=== PATIENT | female | born 1990 | race Caucasian/White ===

== ENCOUNTER → 2016-06-22 | Outpatient (CLI) | payer OTHER ==
[~2016-06-22] MED LIST: CYCL10TA9 PO; DICL18CA PO; HYDR-3714 PO; METH-53 PO; METH4TAB PO; PRED20TA PO; TRAM-21 PO
--- NOTE | 2016-06-22 18:15 | Diagnostic Imaging Report ---
Transabdominal and transvaginal pelvic ultrasound. INDICATION: Pelvic pain. FINDINGS: The uterus is 10.1 x 5.4 x 5.1 cm. The endometrial stripe is 1.3 cm in thickness. The myometrium is fairly homogeneous with no discrete lesion identified. The right ovary is 3.1 x 2.6 x 3.4 cm. The left ovary is 3 x 3.2 x 2.6 cm. Arterial and venous waveforms are seen. IMPRESSION: Unremarkable exam. Dictated by: Dictated on workstation # [id number]
== END ==
LOC: RAD 14:28
PROVIDERS: ATTEND Nurse Practitioner
DX: R10.2 Pelvic and perineal pain (principal)
CPT/HCPCS: 76830; 76856

== ENCOUNTER → 2016-10-06 | Outpatient (CLI) | payer OTHER ==
--- NOTE | 2016-10-06 13:32 | Diagnostic Imaging Report ---
PROCEDURE: CT abdomen and pelvis without contrast. TECHNIQUE: Multiple contiguous axial images were obtained through the abdomen and pelvis without the use of intravenous contrast. INDICATION: Left upper quadrant pain radiating down the back. Patient also reports mononucleosis. COMPARISON: Exam compared 07/16/2007. Spleen is normal in size on followup having decreased from prior. It measures AP dimension of 11 cm and transverse hilar thickness of only 3.8 cm. There is no perisplenic or subcapsular fluid. No findings of splenic rupture. The liver and gallbladder appeared unremarkable. Patient's lung bases are negative. The visualized lower ribs are unremarkable. There are no opaque kidney stones. There is no hydronephrosis, no perinephric or periureteric edema. The unopacified urinary bladder had an unremarkable appearance. There is minute free fluid in the pelvic cul-de-sac not uncommonly found as a physiologic finding in a female patient of this age. Left pelvic phleboliths stable from prior. No adnexal lesion. Surgical changes of the base of the cecum presumed to reflect appendectomy no regional inflammatory process. There is no diverticulitis. The osseous structures nonacute. IMPRESSION: Normal spleen size on followup. No acute abnormality in the left upper quadrant. No bowel, biliary or urinary tract obstruction. Trace free fluid believed physiologic. No acute appearing abnormality. Dictated by: Dictated on workstation # [id number]
== END ==
LOC: RAD 08:23
PROVIDERS: ATTEND Family Medicine
DX: R10.13 Epigastric pain (principal); R10.32 Left lower quadrant pain; B27.90 Infectious mononucleosis, unspecified without complication
CPT/HCPCS: 74176

== ENCOUNTER → 2017-11-30 | Outpatient (CLI) | payer OTHER ==
--- NOTE | 2017-11-30 16:05 | Diagnostic Imaging Report ---
INDICATION: Abnormal uterine/vaginal bleeding. TECHNIQUE: Multiple real time jones scale sonographic images were obtained of the pelvis transvaginally. CORRELATION STUDY: None FINDINGS: UTERUS/ENDOMETRIUM: Uterus measures 9.1 x 5.6 x 4.8 cm. Endometrial thickness is 3 mm. The uterus and endometrium appearing unremarkable. RIGHT OVARY: 2.8 x 1.9 x 2.4 cm. LEFT OVARY: 2.7 x 1.9 x 2.4 cm. The ovaries have an unremarkable appearance. Vascular flow is demonstrated to both ovaries. No significant free pelvic fluid. IMPRESSION: 1. Unremarkable appearing pelvic ultrasound examination. Dictated by: Dictated on workstation # [id number]
== END ==
LOC: RAD 14:35
PROVIDERS: ATTEND Nurse Practitioner Women's Health
DX: N92.1 Excessive and frequent menstruation with irregular cycle (principal); N93.8 Other specified abnormal uterine and vaginal bleeding
CPT/HCPCS: 76830

== ENCOUNTER → 2018-02-26 | Outpatient (CLI) | payer OTHER ==
--- NOTE | 2018-02-26 12:39 | Diagnostic Imaging Report ---
PROCEDURE: US abdomen complete. TECHNIQUE: Multiple real-time grayscale images were obtained over the abdomen in various projections. INDICATION: Abdominal pain and celiac disease. FINDINGS: The liver is normal in size without focal lesions. There is no biliary ductal dilatation. Common bile duct measures 3 mm. There is no cholelithiasis, gallbladder wall thickening, or pericholecystic fluid. Pancreas is not well seen due to bowel gas. The aorta is not well seen due to bowel gas. IVC is patent. Both kidneys are normal. There is no ascites. IMPRESSION: Unremarkable abdominal ultrasound. Dictated by: Dictated on workstation # [id number]
== END ==
LOC: RAD 08:07
PROVIDERS: ATTEND Nurse Practitioner Family
DX: K90.0 Celiac disease (principal); N80.9 Endometriosis, unspecified; K21.9 Gastro-esophageal reflux disease without esophagitis; M50.30 Other cervical disc degeneration, unspecified cervical region
CPT/HCPCS: 76700

== ENCOUNTER 2018-03-14 10:20 | Outpatient (CLI) | payer OTHER ==
[~2018-03-14] VITALS: Ht 177.8 cm; Wt 88.5 kg
[2018-03-15] MEDS ORDERED: PANT40TA2 PO (14:09)
== END 2018-03-14 12:45 | disposition home or self-care (01) ==
LOC: PREOP 10:20
PROVIDERS: ATTEND Surgery
DX: Z01.818 Encounter for other preprocedural examination (principal)

== ENCOUNTER 2018-03-15 12:15 | Day surgery (SDC) | payer OTHER ==
[~2018-03-15] VITALS: Ht 177.8 cm; Wt 88.5 kg
[2018-03-15 12:20] VITALS: BP 124/88
[2018-03-15] MEDS ORDERED: LACTATED RINGERS 1,000 ML IV ONE (12:28)
[2018-03-15] MEDS ORDERED: PROPOFOL INJECTION 50 ML IV ONE (13:09)
[2018-03-15] MEDS ORDERED: MIDAZOLAM 2 MG/2 ML (VERSED) VIAL ONE (13:10)
[2018-03-15 13:30] VITALS: BP 113/80
[2018-03-15] MEDS ORDERED: LACTATED RINGERS 1,000 ML IV PRN (13:30)
[2018-03-15] MEDS ORDERED: HURRICAINE EXT TUBE (BENZOCAINE) ONE (13:36)
--- NOTE | 2018-03-15 13:46 | Progress Note-Pre Operative ---
Pre-Operative Progress Note H&P Reviewed The H&P was reviewed, patient examined and no changes noted. Date Seen by Provider: Mar 15, 2018 Time Seen by Provider: 13:45 Date H&P Reviewed: Mar 15, 2018 Time H&P Reviewed: 13:45 Pre-Operative Diagnosis: epigastric abdominal pain SHIRIN ZAPATA DO Mar 15, 2018 13:46
[2018-03-15 14:00] VITALS: BP 114/90
--- NOTE | 2018-03-15 14:08 | Progress Note-Post Operative ---
Post-Operative Progess Note Surgeon (s)/Customer Support Specialist (s) Surgeon SHIRIN ZAPATA DO Customer Support Specialist: na Pre-Operative Diagnosis epigastric abdominal pain Post-Operative Diagnosis Hx of celiac epigastric abdominal pain Procedure & Operative Findings Date of Procedure 03/15/18 Procedure Performed/Findings EGD c biopsies duodenum and antrum Anesthesia Type per FILLER SPREADER Estimated Blood Loss Estimated blood loss (mL): none Specimens/Packing Specimens Removed Bx of antrum and duodenum SHIRIN ZAPATA DO Mar 15, 2018 14:08
[2018-03-15] MEDS ORDERED: PANT40TA2 PO (14:09)
--- NOTE | 2018-03-15 14:10 | Discharge Inst-Simple/Standard ---
Discharge Inst-Standard Discharge Medications New, Converted or Re-Newed RX: Transmitted to Pharmacy Patient Instructions/Follow Up Plan of Care/Instructions/FU: 2-3 weeks Isiah Activity as Tolerated: Yes Discharge Diet: Regular Diet SHIRIN ZAPATA DO Mar 15, 2018 14:10
[2018-03-15] MEDS ORDERED: HURRICAINE EXT TUBE (BENZOCAINE) XX ONE (14:15)
[2018-03-15 14:30] VITALS: BP 109/66
[2018-03-15 14:55] VITALS: BP 112/70
--- NOTE | 2018-03-15 18:36 | OPERATIVE REPORT ---
DATE OF SERVICE: 03/15/2018 PREOPERATIVE DIAGNOSIS: Epigastric abdominal pain. POSTOPERATIVE DIAGNOSIS: Gastritis. PROCEDURE: EGD with biopsies of the duodenum and antrum. SURGEON: Shirin Joyce DO ANESTHESIA: Per PROCESS CONTROL TECHNICIAN. ESTIMATED BLOOD LOSS: None. COMPLICATIONS: None. INDICATIONS: The patient is a 27-year-old female, who has been having epigastric abdominal pain. It is radiating to her back at times. The patient states that she also has history of celiac disease. The patient is fairly adherent to a diet. She was explained risks and benefits of having EGD performed for further evaluation. She understands risks and benefits and wished to proceed with procedure. Consent was signed and on the chart. DESCRIPTION OF PROCEDURE: The patient was taken to the endoscopy suite, placed in left lateral recumbent position. Timeout was performed. Scope was inserted into mouth, down the esophagus, stomach and into the duodenum without difficulty. There were no polyps, mass or ulceration of the duodenum. Biopsy of the duodenum was obtained. Scope was slowly retracted back into the stomach where it was further insufflated. Some slight erythematous changes in the antrum consistent with slight gastritis. Biopsy of the antrum was obtained. Scope was retroflexed noting no other pathology. Scope was returned to its normal position moved back into the esophagus, which had normal appearance. No polyps, masses or ulcerations. The patient's scope was then slowly retracted back until completely removed. The patient tolerated the procedure well without any complications and taken to recovery room in stable condition. RECOMMENDATIONS: The patient will try Protonix 40 mg daily. We will have a followup in approximately 2 to 3 weeks to discuss pathology results and see how she is feeling at that time. Job ID: [id number] DocumentID: [id number] Dictated Date: 03/15/2018 14:14:32 Textile Colorist Formulator Date: 03/15/2018 18:35:20 Dictated By: SHIRIN JOYCE DO
== END 2018-03-15 15:00 | disposition home or self-care (01) ==
LOC: ENDO 12:15
PROVIDERS: ATTEND Surgery
DX: K29.70 Gastritis, unspecified, without bleeding (principal); Z87.19 Personal history of other diseases of the digestive system
CPT/HCPCS: 84703; 88305

== ENCOUNTER → 2018-04-24 | Outpatient (CLI) | payer OTHER ==
[~2018-04-24] MED LIST changes: +PANT40TA2 PO; +RECEIVED CONTRAST (Hold Metformin) IV SCH
[2018-04-24] MEDS: NS 250 ML (IVPB) BAG IV ONE (09:11)
[2018-04-24] MEDS: IOHEXOL 350 MG/ML 100 ML (OMNIPAQUE 350) VIAL IV ONE (09:11)
--- NOTE | 2018-04-24 12:03 | Diagnostic Imaging Report ---
PROCEDURE: CT abdomen and pelvis with and without contrast. TECHNIQUE: Precontrast acquisitions were acquired through the abdomen and pelvis. Multiple contiguous axial images were obtained through the abdomen and pelvis after the administration of intravenous contrast. INDICATION: Left upper quadrant pain, endometriosis. FINDINGS: The previous CT abdomen/pelvis exam of 10/06/2016 failed to show any acute abnormality of the abdomen or pelvis. On this exam, the liver is homogeneous and not enlarged. The spleen, pancreas, adrenals, kidneys, aorta and inferior vena cava are unremarkable for an acute abnormality. There is no sign of cholelithiasis or acute cholecystitis. The stomach is partially filled with fluid and consequently difficult to assess. There is no obvious gastric abnormality evident. The images through the pelvis do show that the uterus is prominent and that the endometrial lining is thickened measuring 25 MM (normal 5 mm or less). This finding is nonspecific, however correlation with the patient's menstrual cycle would be recommended. There does appear to be a roughly 2 cm associated with the right ovary. The left ovary is unremarkable. There is a small amount of free fluid in the pelvis. This is nonspecific in appearance and could be related to the recent rupture of cyst or to a mild inflammatory process. The surgical clips near the base of cecum seen on the previous study are again evident. Most likely these are secondary to prior appendectomy. Correlation with the patient's history would be recommended. The bone windows show no evidence for fracture or for destructive lesion. The lung bases are clear. IMPRESSION: 1. The endometrial lining of the uterus is thickened but this finding is nonspecific. Correlation with the patient's menstrual cycle would be recommended. There also appears to be a small cyst associated with the right ovary and a small amount of free fluid in the pelvis. If further evaluation of pelvic contents is desired, then ultrasound would be recommended. 2. There is no acute abnormality of the abdomen or pelvis noted otherwise. Dictated by: Dictated on workstation # [id number]
== END ==
LOC: RAD 08:39
PROVIDERS: ATTEND Nurse Practitioner Family
DX: N80.9 Endometriosis, unspecified (principal); S29.012A Strain of muscle and tendon of back wall of thorax, initial encounter; K90.0 Celiac disease; R68.81 Early satiety; K21.9 Gastro-esophageal reflux disease without esophagitis; M50.30 Other cervical disc degeneration, unspecified cervical region
CPT/HCPCS: 74178

== ENCOUNTER 2018-08-26 06:18 | Outpatient (CLI) | payer OTHER ==
[~2018-08-26] VITALS: Ht 177.8 cm; Wt 91.2 kg
[~2018-08-26 06:18] MED LIST changes: -RECEIVED CONTRAST (Hold Metformin) IV SCH
[2018-08-26] MEDS ORDERED: BUPR300T43 PO (14:17)
[2018-08-26] MEDS ORDERED: BCP PO (14:17)
== END 2018-08-26 14:19 | disposition home or self-care (01) ==
LOC: PREOP 06:18
PROVIDERS: ATTEND Internal Medicine
DX: Z01.818 Encounter for other preprocedural examination (principal)

== ENCOUNTER 2018-08-30 09:50 | Day surgery (SDC) | payer OTHER ==
--- NOTE | 2018-08-20 15:44 | HISTORY AND PHYSICAL ---
DATE OF SERVICE: COLONOSCOPY H AND P HISTORY OF PRESENT ILLNESS: The patient is a 27-year-old white female, referred by Dr. Morales for diagnostic colonoscopy due to left upper quadrant abdominal pain. She reports the pain is a nagging discomfort, but many times radiates from the mid axillary line around to the left upper quadrant of the abdomen. She reports that otherwise she feels well and workup to date has included an unremarkable EGD including biopsy of the small intestine that was unremarkable on abdominal sonogram and a CT scan of the abdomen. In review of her past x-ray evaluation, she also in 2016 had a thoracic MRI that was unremarkable except for some slight straightening of the physiologic kyphotic curve. She reports that her pain does not appear to be positional and will tend to last for hours and occurs most days of the week. She is not aware of any activities that aggravate it or make it better and it does not appear to be food related. She is not aware as to whether or not pain improves with defecation. She does sometimes have some abdominal distention, sensation that aggravate the discomfort. She denies any past associated trauma. She has not previously undergone colonoscopy. PAST MEDICAL HISTORY: Significant for reported celiac disease for which she has been adherent to a gluten free diet with no evidence on EGD done late last year for villous atrophy. She has some past anxiety and does take Wellbutrin and is on control medication, reporting no other medication. She reports a past diagnosis of endometriosis. She has not had any periods on progesterone base control. She does have a history of cervical radiculopathy, not currently problematic for her and she also has a history of lumbar myelopathy. FAMILY HISTORY: She is not aware of any family history for GI tract malignancy or polyps. Both parents are alive and well per her report. REVIEW OF SYSTEMS: CONSTITUTIONAL: The patient reports no significant change in weight, night sweats, chills, fever or appetite change. CARDIOVASCULAR: She denies any associated chest pain, palpitations, syncope or presyncope. GASTROINTESTINAL: As per HPI. PULMONARY: She has had no problems with cough, wheezing and denies a pleuritic component to her left upper quadrant pain. PAST SURGICAL HISTORY: She has had an appendectomy in the past and I believe she has had lumbar decompressive surgery. PHYSICAL EXAMINATION: GENERAL: Reveals a well-appearing white female in no acute distress. VITAL SIGNS: Weight is 201.2 pounds, blood pressure 120/72, heart rate 66 and regular. HEENT: Examination is unremarkable. Sclerae nonicteric. NECK: Revealed no JVD, adenopathy, bruits or thyroid abnormality to palpation. CHEST: Clear to auscultation. CARDIOVASCULAR: Reveals a regular rate and rhythm without murmur, S3 or S4. ABDOMEN: Soft, supple without mass or organomegaly. Currently, there was no pain to palpation over the left upper quadrant. There was some mild pain over the left 11th and 12th ribs to palpation without guarding. Bowel sounds are positive. No bruits are noted. EXTREMITIES: Reveal no cyanosis, clubbing or edema. ASSESSMENT AND PLAN: 1. The patient is set up for diagnostic colonoscopy due to left upper quadrant abdominal pain. I discussed that if colonoscopy was normal, especially she has had problems with radiculopathy in the past, that a thoracic radiculopathy was in the differential diagnosis and depending on the degree of her pain, could be looked into via pain management. We will discuss this in further detail with the patient pending colonoscopy results. Procedure was set up for the 08/30/2018. Prep instructions and Suprep kit were given and questions were answered. 2. Reported history of celiac disease, recent EGD revealing no evidence for villous atrophy in a patient, who reportedly adheres to a gluten free diet. I thank you for the referral of this pleasant lady. Sincerely, Job ID: [id number] DocumentID: [id number] Dictated Date: 08/20/2018 15:18:42 Suction Dredge Dumping Supervisor Date: 08/20/2018 15:43:11 Dictated By: CJ CULLEN MD
[~2018-08-30] VITALS: Ht 177.8 cm; Wt 91.2 kg
[~2018-08-30 09:50] MED LIST changes: +BCP PO; +BUPR300T43 PO
--- OUTSIDE RECORDS SUMMARY | 2018-08-30 09:55 | XMS REPORT | Continuity of Care Document ---
Author Author [facility] Organization [facility] Address Unknown Phone Unavailable Allergies Active Description Code Type Severity Reaction Onset Reported/Identified Relationship to Patient Clinical Status Yes cefixime [id number] Drug Allergy Unknown N/A 07/16/2007 Yes sulfamethoxazole [id number] Drug Allergy Unknown N/A 07/16/2007 Yes trimethoprim [id number] Drug Allergy Unknown N/A 07/16/2007 Yes dexamethasone [id number] Drug Allergy Unknown HALLUCINATIONS, 12/16/2014 Yes gluten [id number] Drug Allergy Unknown N/A 12/16/2014 Yes codeine [id number] Drug Allergy Unknown N/A 03/14/2018 Medications There is no data. Problems Date Dx Coded Attending Type Code Diagnosis Diagnosed By 09/27/2014 FARHANA GRAHAM DO Ot 723.1 CERVICALGIA 09/27/2014 FARHANA GRAHAM DO Ot 840.8 SPRAIN SHOULDER/ARM NEC 09/27/2014 FARHANA GRAHAM DO Ot E000.8 OTHER EXTERNAL CAUSE STATUS 09/27/2014 FARHANA GRAHAM DO Ot E928.9 ACCIDENT NOS 10/06/2014 VANROSEANNEELAERE, BARBARA M FIELD OPERATIONS TECHNICIAN Ot 723.1 10/06/2014 VANRUSTAMRE, BARBARA M FIELD OPERATIONS TECHNICIAN Ot 723.4 11/12/2014 VANBECELAERE, BARBARA M FIELD OPERATIONS TECHNICIAN Ot 723.1 11/12/2014 VANROSEANNEELAERE, BARBARA M FIELD OPERATIONS TECHNICIAN Ot 723.4 12/16/2014 PHAN COBB, NED Hernández Ot 722.10 LUMBAR DISC DISPLACEMENT 12/16/2014 PHAN COBB, NED Hernández Ot 724.2 LUMBAGO 02/11/2015 MARIAH COBB PHD, FASSIMI B Ot 729.2 02/11/2015 MARIAH COBB PHD, FASSIL B Ot 780.96 02/15/2015 MARIAH COBB PHD, FASSIL B Ot 729.2 02/15/2015 MARIAH COBB PHD, FASSIL B Ot 780.96 03/03/2015 MARIAH COBB PHD, FASSIL B Ot 729.2 03/03/2015 MARIAH COBB PHD, FASSIL B Ot 780.96 09/28/2015 VANBECELAERE, BARBARA M FIELD OPERATIONS TECHNICIAN Ot 723.1 CERVICALGIA 09/28/2015 VANBECELAERE, BARBARA M FIELD OPERATIONS TECHNICIAN Ot 723.4 BRACHIAL NEURITIS NOS 09/28/2015 MARIAH COBB PHD, FASSIL B Ot 729.2 NEURALGIA/NEURITIS NOS 09/28/2015 MARIAH COBB PHD, FASSIL B Ot 780.96 GENERALIZED PAIN 10/14/2015 VANBECELAERE, BARBARA M FIELD OPERATIONS TECHNICIAN Ot 723.1 CERVICALGIA 10/14/2015 VANBECELAERE, BARBARA M FIELD OPERATIONS TECHNICIAN Ot 723.4 BRACHIAL NEURITIS NOS 10/14/2015 MARIAH COBB PHD, FASSIL B Ot 729.2 NEURALGIA/NEURITIS NOS 10/14/2015 MARIAH COBB PHD, FASSIL B Ot 780.96 GENERALIZED PAIN 10/14/2015 ORENDER DO, TIARA S Ot M54.2 CERVICALGIA 10/14/2015 ORENDER DO, TIRAA S Ot M54.6 PAIN IN THORACIC SPINE 10/15/2015 ORENDER DO, TIARA S Ot M54.2 CERVICALGIA 10/15/2015 ORENDER DO, TIARA S Ot M54.6 PAIN IN THORACIC SPINE 10/18/2015 ORENDER DO, TIARA S Ot M54.2 CERVICALGIA 10/18/2015 ORENDER DO, TIARA S Ot M54.6 PAIN IN THORACIC SPINE 11/02/2015 ORENDER DO, TIARA S Ot M54.2 CERVICALGIA 11/02/2015 ORENDER DO, TIARA S Ot M54.6 PAIN IN THORACIC SPINE 03/13/2016 VANBECELAERE, BARBARA M FIELD OPERATIONS TECHNICIAN Ot 723.1 CERVICALGIA 03/13/2016 VANBECELAERE, BARBARA M FIELD OPERATIONS TECHNICIAN Ot 723.4 BRACHIAL NEURITIS NOS 03/13/2016 MARIAH COBB PHD, FASSIL B Ot 729.2 NEURALGIA/NEURITIS NOS 03/13/2016 MARIAH COBB PHD, FASSIL B Ot 780.96 GENERALIZED PAIN 03/13/2016 ORENDER DO, TIARA S Ot M54.2 CERVICALGIA 03/13/2016 ORENDER DO, TIARA S Ot M54.6 PAIN IN THORACIC SPINE 03/16/2016 MARCDORIAN COLOR SPRAYER Ot R59.1 GENERALIZED ENLARGED LYMPH NODES 06/22/2016 VANBECELAERE, BARBARA M FIELD OPERATIONS TECHNICIAN Ot 723.1 CERVICALGIA 06/22/2016 VANBECELAERE, BARBARA M FIELD OPERATIONS TECHNICIAN Ot 723.4 BRACHIAL NEURITIS NOS 06/22/2016 MARIAH COBB PHD, FASSIL B Ot 729.2 NEURALGIA/NEURITIS NOS 06/22/2016 MARIAH COBB PHD, FASSIL B Ot 780.96 GENERALIZED PAIN 06/22/2016 ORENDER DO, TIARA S Ot M54.2 CERVICALGIA 06/22/2016 ORENDER DO, TIARA S Ot M54.6 PAIN IN THORACIC SPINE 06/22/2016 DORIAN TRAN COLOR SPRAYER Ot R59.1 GENERALIZED ENLARGED LYMPH NODES 06/23/2016 ARNOLD STRICKLAND FIELD OPERATIONS TECHNICIAN Ot R10.2 PELVIC AND PERINEAL PAIN 10/11/2016 ORENDER DO, TIARA S Ot B27.90 INFECTIOUS MONONUCLEOSIS, UNSPECIFIED [place] 10/11/2016 ORENDER DO, TIARA S Ot R10.13 EPIGASTRIC PAIN 10/11/2016 ORENDER DO, TIARA S Ot R10.32 LEFT LOWER QUADRANT PAIN 10/13/2016 ORENDER DO, TIARA S Ot B27.90 INFECTIOUS MONONUCLEOSIS, UNSPECIFIED [place] 10/13/2016 ORENDER DO, TIARA S Ot R10.13 EPIGASTRIC PAIN 10/13/2016 ORENDER DO, TIARA S Ot R10.32 LEFT LOWER QUADRANT PAIN 06/20/2017 Ot 786.09 06/20/2017 VANBECELAERE, BARBARA M FIELD OPERATIONS TECHNICIAN Ot 723.1 CERVICALGIA 06/20/2017 VANBECELAERE, BARBARA M FIELD OPERATIONS TECHNICIAN Ot 723.4 BRACHIAL NEURITIS NOS 06/20/2017 MARIAH COBB PHD, FASSIL B Ot 729.2 NEURALGIA/NEURITIS NOS 06/20/2017 MARIAH COBB PHD, FASSIL B Ot 780.96 GENERALIZED PAIN 06/20/2017 ORENDER DO, TIARA S Ot M54.2 CERVICALGIA 06/20/2017 ORENDER DO, TIARA S Ot M54.6 PAIN IN THORACIC SPINE 06/20/2017 COREY TRANCOLBY Blake COLOR SPRAYER Ot R59.1 GENERALIZED ENLARGED LYMPH NODES 06/20/2017 ORENDER DO, TIARA S Ot B27.90 INFECTIOUS MONONUCLEOSIS, UNSPECIFIED [place] 06/20/2017 ORENDER DO, TIARA S Ot R10.13 EPIGASTRIC PAIN 06/20/2017 ORENDER DO, TIARA S Ot R10.32 LEFT LOWER QUADRANT PAIN 06/20/2017 ARNOLD STRICKLAND FIELD OPERATIONS TECHNICIAN Ot R10.2 PELVIC AND PERINEAL PAIN 06/20/2017 VANBECELAERE, BARBARA M FIELD OPERATIONS TECHNICIAN Ot 723.1 CERVICALGIA 06/20/2017 VANBECELAERE, BARBARA M FIELD OPERATIONS TECHNICIAN Ot 723.4 BRACHIAL NEURITIS NOS 06/20/2017 MARIAH COBB PHD, FASSIL B Ot 729.2 NEURALGIA/NEURITIS NOS 06/20/2017 MARIAH COBB PHD, FASSIL B Ot 780.96 GENERALIZED PAIN 06/20/2017 ORENDER DO, TIARA S Ot M54.2 CERVICALGIA 06/20/2017 ORENDER DO, TIARA S Ot M54.6 PAIN IN THORACIC SPINE 06/20/2017 DORIAN TRAN COLOR SPRAYER Ot R59.1 GENERALIZED ENLARGED LYMPH NODES 06/20/2017 ARNOLD STRICKLAND FIELD OPERATIONS TECHNICIAN Ot R10.2 PELVIC AND PERINEAL PAIN 06/20/2017 ORENDER DO, TIARA S Ot B27.90 INFECTIOUS MONONUCLEOSIS, UNSPECIFIED [place] 06/20/2017 ORENDER DO, TIARA S Ot R10.13 EPIGASTRIC PAIN 06/20/2017 NATENDER DO, TIARA S Ot R10.32 LEFT LOWER QUADRANT PAIN 12/03/2017 THOMAS HALL N COLOR SPRAYER Ot N92.1 EXCESSIVE AND FREQUENT MENSTRUATION WITH 12/03/2017 OUTHOMAS MORTON N COLOR SPRAYER Ot N93.8 OTHER SPECIFIED ABNORMAL UTERINE AND VAG 01/31/2018 GUCCI HALLI N COLOR SPRAYER Ot N92.1 EXCESSIVE AND FREQUENT MENSTRUATION WITH 01/31/2018 OUTHOMAS MORTON N COLOR SPRAYER Ot N93.8 OTHER SPECIFIED ABNORMAL UTERINE AND VAG 02/26/2018 VANROSEANNEELAEOMERO BARBARA M FIELD OPERATIONS TECHNICIAN Ot 723.1 CERVICALGIA 02/26/2018 BARBARA PERALTA FIELD OPERATIONS TECHNICIAN Ot 723.4 BRACHIAL NEURITIS NOS 02/26/2018 MARIAH COBB PHD, FASSIL B Ot 729.2 NEURALGIA/NEURITIS NOS 02/26/2018 MARIAH COBB PHD, FASSIL B Ot 780.96 GENERALIZED PAIN 02/26/2018 ORENDER DO, TIARA S Ot M54.2 CERVICALGIA 02/26/2018 ORENDER DO, TIARA S Ot M54.6 PAIN IN THORACIC SPINE 02/26/2018 DORIAN TRAN Lou COLOR SPRAYER Ot R59.1 GENERALIZED ENLARGED LYMPH NODES 02/26/2018 EM ARNOLD W FIELD OPERATIONS TECHNICIAN Ot R10.2 PELVIC AND PERINEAL PAIN 02/26/2018 ORENDER DO, TIARA S Ot B27.90 INFECTIOUS MONONUCLEOSIS, UNSPECIFIED [place] 02/26/2018 ORENDER DO, TIARA S Ot R10.13 EPIGASTRIC PAIN 02/26/2018 ORENDER DO, TIARA S Ot R10.32 LEFT LOWER QUADRANT PAIN 02/26/2018 THOMAS HALL COLOR SPRAYER Ot N92.1 EXCESSIVE AND FREQUENT MENSTRUATION WITH 02/26/2018 OUTHOMAS MORTON N COLOR SPRAYER Ot N93.8 OTHER SPECIFIED ABNORMAL UTERINE AND VAG 02/27/2018 MANDUJANOPEPE PINZON L COLOR SPRAYER Ot K21.9 GASTRO-ESOPHAGEAL REFLUX DISEASE WITHOUT 02/27/2018 MANDUJANO PEPE L COLOR SPRAYER Ot K90.0 CELIAC DISEASE 02/27/2018 MANDUJANO PEPE L COLOR SPRAYER Ot M50.30 OTHER CERVICAL DISC DEGENERATION, UNSP C 02/27/2018 MANDUJANO PEPE L COLOR SPRAYER Ot N80.9 ENDOMETRIOSIS, UNSPECIFIED 03/04/2018 MANDUJANO PEPE L COLOR SPRAYER Ot K21.9 GASTRO-ESOPHAGEAL REFLUX DISEASE WITHOUT 03/04/2018 MANDUJANO PEPE L COLOR SPRAYER Ot K90.0 CELIAC DISEASE 03/04/2018 MANDUJANO PEPE L COLOR SPRAYER Ot M50.30 OTHER CERVICAL DISC DEGENERATION, UNSP C 03/04/2018 DELBERT PEPE L COLOR SPRAYER Ot N80.9 ENDOMETRIOSIS, UNSPECIFIED 03/14/2018 SHIRIN ZAPATA DO Ot Z01.818 ENCOUNTER FOR OTHER PREPROCEDURAL EXAMIN 03/15/2018 SIHRIN ZAPATA DO Betty Ot K29.70 GASTRITIS, UNSPECIFIED, WITHOUT BLEEDING 03/15/2018 SHIRIN ZAPATA DO D Ot Z87.19 PERSONAL HISTORY OF OTHER DISEASES OF 03/19/2018 SHIRIN ZAPATA DO D Ot K29.70 GASTRITIS, UNSPECIFIED, WITHOUT BLEEDING 03/19/2018 KETAN ZAPATA DOTT D Ot Z87.19 PERSONAL HISTORY OF OTHER DISEASES OF 04/26/2018 JUAN MANUEL STOCK COLOR SPRAYER Ot K21.9 GASTRO-ESOPHAGEAL REFLUX DISEASE WITHOUT 04/26/2018 JUAN MANUEL STOCK COLOR SPRAYER Ot K90.0 CELIAC DISEASE 04/26/2018 JUAN MANUEL STOCK COLOR SPRAYER Ot M50.30 OTHER CERVICAL DISC DEGENERATION, UNSP C 04/26/2018 JUAN MANUEL STOCK COLOR SPRAYER Ot N80.9 ENDOMETRIOSIS, UNSPECIFIED 04/26/2018 JUAN MANUEL STOCK COLOR SPRAYER Ot R68.81 EARLY SATIETY 04/26/2018 JUAN MANUEL STOCK COLOR SPRAYER Ot S29.012A STRAIN OF MUSCLE AND TENDON OF BACK WALL 05/14/2018 JODI CLEMONS SHIRIN D Ot K29.70 GASTRITIS, UNSPECIFIED, WITHOUT BLEEDING 05/14/2018 SHIRIN ZAPATA DO D Ot Z87.19 PERSONAL HISTORY OF OTHER DISEASES OF 08/26/2018 ALYSE COBB, CJ Hernández Ot Z01.818 ENCOUNTER FOR OTHER PREPROCEDURAL EXAMIN 08/28/2018 BARBARA PERALTA FIELD OPERATIONS TECHNICIAN Ot 723.1 CERVICALGIA 08/28/2018 BARBARA PERALTA FIELD OPERATIONS TECHNICIAN Ot 723.4 BRACHIAL NEURITIS NOS 08/28/2018 MARIAH COBB PHD, FASSIL B Ot 729.2 NEURALGIA/NEURITIS NOS 08/28/2018 MARIAH COBB PHD, FASSIL B Ot 780.96 GENERALIZED PAIN 08/28/2018 TIARA MORALES DO S Ot M54.2 CERVICALGIA 08/28/2018 TIARA MORALES DO S Ot M54.6 PAIN IN THORACIC SPINE 08/28/2018 DORIAN TRAN COLOR SPRAYER Ot R59.1 GENERALIZED ENLARGED LYMPH NODES 08/28/2018 ARNLOD STRICKLAND FIELD OPERATIONS TECHNICIAN Ot R10.2 PELVIC AND PERINEAL PAIN 08/28/2018 TIARA MORALES DO S Ot B27.90 INFECTIOUS MONONUCLEOSIS, UNSPECIFIED [place] 08/28/2018 SADAF MORALES DOLINE S Ot R10.13 EPIGASTRIC PAIN 08/28/2018 SADAF MORALES DOLINE S Ot R10.32 LEFT LOWER QUADRANT PAIN 08/28/2018 OUTEE NICOLELouGUCCI VirgenSanjuana Blake COLOR SPRAYER Ot N92.1 EXCESSIVE AND FREQUENT MENSTRUATION WITH 08/28/2018 DREAD RIVERATHOMAS SOTOMAYOR N COLOR SPRAYER Ot N93.8 OTHER SPECIFIED ABNORMAL UTERINE AND VAG 08/28/2018 MANDUJANO PEPE L COLOR SPRAYER Ot K21.9 GASTRO-ESOPHAGEAL REFLUX DISEASE WITHOUT 08/28/2018 MANDUJANO PEPE L COLOR SPRAYER Ot K90.0 CELIAC DISEASE 08/28/2018 MANDUJANO PEPE L COLOR SPRAYER Ot M50.30 OTHER CERVICAL DISC DEGENERATION, UNSP C 08/28/2018 MANDUJANO PEPE L COLOR SPRAYER Ot N80.9 ENDOMETRIOSIS, UNSPECIFIED 08/28/2018 JUAN MANUEL STOCK COLOR SPRAYER Ot K21.9 GASTRO-ESOPHAGEAL REFLUX DISEASE WITHOUT 08/28/2018 JUAN MANUEL STOCK COLOR SPRAYER Ot K90.0 CELIAC DISEASE 08/28/2018 JUAN MANUEL STOCK COLOR SPRAYER Ot M50.30 OTHER CERVICAL DISC DEGENERATION, UNSP C 08/28/2018 JUAN MANUEL STOCK COLOR SPRAYER Ot N80.9 ENDOMETRIOSIS, UNSPECIFIED 08/28/2018 JUAN MANUEL STOCK APRN Ot R68.81 EARLY SATIETY 08/28/2018 JUAN MANUEL STOCK COLOR SPRAYER Ot S29.012A STRAIN OF MUSCLE AND TENDON OF BACK WALL Procedures Code Description Performed By Performed On 47.01 LAPAROSCOP APPENDECTOMY 07/16/2007 Results Test Result Range Urine beta human chorionic gonadotropin (hCG) measurement - 03/15/18 12:25 Urine beta human chorionic gonadotropin (hCG) measurement NEGATIVE NEGATIVE Encounters ACCT No. Visit Date/Time Discharge Status Pt. Type Provider Facility Loc./Unit Complaint [id number] 08/26/2018 06:18:00 08/26/2018 14:19:00 DIS Outpatient CJ CULLEN MD [facility] PREOP COLONOSCOPY [id number] 04/24/2018 08:39:00 04/24/2018 23:59:59 CLS Outpatient JUAN MANUEL STOCK APRN [facility] RAD LUQ PAIN,CHEST PAIN, ENDOMETRIOSIS [id number] 03/21/2018 10:00:00 03/21/2018 23:59:59 CLS Preadmit SHIRIN ZAPATA DO [facility] CARD ABD PAIN [id number] 03/15/2018 12:15:00 03/15/2018 15:00:00 DIS Outpatient SHIRIN ZAPATA DO [facility] ENDO LEFT UPPER ABD PAIN [id number] 03/14/2018 10:20:00 03/14/2018 12:45:00 DIS Outpatient SHIRIN ZAPATA DO [facility] PREOP EGD [id number] 02/26/2018 08:07:00 02/26/2018 23:59:59 CLS Outpatient PEPE MANDUJANO COLOR SPRAYER [facility] RAD CELIAC DISEASE, ENDOMETRIOSIS [id number] 11/30/2017 14:35:00 11/30/2017 23:59:59 CLS Outpatient THOMAS HALL COLOR SPRAYER [facility] RAD ABNORMAL UTERINE AND VAGINAL BLEEDING [id number] 10/06/2016 08:23:00 10/06/2016 23:59:59 CLS Outpatient TIARA MORALES DO [facility] RAD R10.13,R10.32 [id number] 09/25/2016 11:39:00 09/25/2016 23:59:59 CLS Preadmit JUAN MANUEL STOCK COLOR SPRAYER [facility] RAD SEVERE ABD PAIN, RECURRENT [id number] 06/22/2016 14:28:00 06/22/2016 23:59:59 CLS Outpatient ARNOLD STRICKLAND [facility] RAD PELVIC PAIN [id number] 03/10/2016 15:11:00 03/10/2016 23:59:59 CLS Outpatient DORIAN TRAN COLOR SPRAYER [facility] RAD R59.1 [id number] 10/14/2015 14:54:00 10/14/2015 23:59:59 CLS Outpatient TIARA MORALES DO [facility] RAD CERVICAL NECK PAIN, RADICULOPATHY [id number] 02/09/2015 13:42:00 02/09/2015 23:59:59 CLS Outpatient MARIAH COBB PHD, LUBNA Johnson [facility] RAD RADICULOPATHY [id number] 12/16/2014 10:01:00 12/16/2014 14:12:00 DIS Emergency PHAN COBB, NED Hernández [facility] ER LOWER BACK/RIGHT LEG PAIN [id number] 10/05/2014 12:14:00 10/05/2014 23:59:59 CLS Outpatient BARBARA PERALTA FIELD OPERATIONS TECHNICIAN [facility] RAD DISORDERS OF [place] REGION, [id number] 09/27/2014 03:59:00 09/27/2014 05:35:00 DIS Emergency FARHANA GRAHAM DO [facility] ER LEFT SIDE PAIN [id number] 11/14/2012 18:12:00 11/14/2012 23:59:59 CLS Outpatient RALEIGH STEVENS FIELD OPERATIONS TECHNICIAN [facility] QUICK SINUS/S0RE THROAT [id number] 08/30/2018 10:30:00 PEN Preadmit ALYSE COBB, CJ Hernández [facility] ENDO LUQ ABD PAIN [id number] 06/20/2017 10:53:00 Document Registration [id number] 07/16/2007 04:37:00 Document Registration [id number] 06/06/2007 10:27:00 Document Registration 09/14/17 06/28/2018 08:29:12 06/28/2018 23:59:59 CLS Outpatient Tiara Morales
[2018-08-30] MEDS ORDERED: LACTATED RINGERS 1,000 ML IV STA (10:07)
[2018-08-30] MEDS ORDERED: LACTATED RINGERS 1,000 ML IV ONE (10:10)
[2018-08-30] MEDS ORDERED: LIDOCAINE JELLY 2% 6 ML SYRINGE MM PRN (10:15)
[2018-08-30 10:36] VITALS: BP 118/71
[2018-08-30] MEDS ORDERED: MIDAZOLAM 2 MG/2 ML (VERSED) VIAL ONE ×2 (10:43→11:06)
[2018-08-30] MEDS ORDERED: proPOfol 200 MG/20 ML (DIPRIVAN) VIAL IV ONE ×2 (10:43→10:49)
[2018-08-30] MEDS ORDERED: PHENYLEPHRINE 100 MCG/ML 10 ML (ANESTHESIA) SYR ONE (11:09)
[2018-08-30] MEDS ORDERED: GLYCOPYRROLATE 0.2 MG/ML (ROBINUL) 2 ML VIAL ONE (11:10)
--- NOTE | 2018-08-30 11:34 | Pre-Op Note & Conscious Sedat ---
Pre-Operative Progress Note H&P Reviewed The H&P was reviewed, patient examined and no changes noted. Date H&P Reviewed: Aug 30, 2018 Time H&P Reviewed: 10:15 Conscious Sedation Pre-Proced ASA Score 1 For ASA 3 and 4: Consider anesthesia and medical clearance. Also, for patients with a history of failed moderate sedation consider anesthesia. Airway Lungs Heart ASA score ASA 1: a normal healthy patient ASA 2: a patient with a mild systemic disease (mid diabetes, controlled hypertension, obesity ASA 3: a patient with a severe systemic disease that limits activity (angina , COPD, prior Myocardial infarction) ASA 4: a patient with an incapacitating disease that is a constant threat to life (CHF, renal failure) ASA 5: a moribund patient not expected to survive 24 hrs. (ruptured aneurysm) ASA 6: a declared brain- patient whose organs are being harvested. For emergent operations, add the letter E after the classification Mallampati Classification Grade 2 Sedation Plan Analgesia, Amnesia, Plan communicated to team members, Discussed options with patient/fam, Discussed risks with patient/fam The patient is an appropriate candidate to undergo the planned procedure, sedation, and anesthesia. The patient immediately re-assessed prior to indication. CJ CULLEN MD Aug 30, 2018 11:34
[2018-08-30 11:46] VITALS: BP 118/58
[2018-08-30 12:09] VITALS: BP 118/58
[2018-08-30 12:10] VITALS: BP 116/66
[2018-08-30 12:20] VITALS: BP 116/66
--- NOTE | 2018-08-30 20:29 | OPERATIVE REPORT ---
DATE OF SERVICE: COLONOSCOPY SUMMARY INDICATION FOR PROCEDURE: Left upper quadrant abdominal pain. The patient was placed in left lateral decubitus position. Prior to undergoing colonoscopy, digital rectal evaluation was performed. Anal sphincter tone was normal and the perianal reflex was intact. The colonoscope was then inserted into the rectum under direct visualization and advanced to the cecum. The cecum was identified by identification of the ileocecal valve and cecal strap. Photographic documentation was obtained. Careful inspection was made as the colonoscope was withdrawn. FINDINGS: There was no evidence for internal or external hemorrhoids. The rectum, the sigmoid colon, descending colon, splenic flexure, transverse colon, ascending colon and cecum were unremarkable. ASSESSMENT: Normal colonoscopy to the cecum. No findings to explain left upper quadrant abdominal pain. Considering this patient's extensive workup and past history of cervical as well as lumbar radiculopathy, I suspect this patient's left upper quadrant pain may very well be referred from a thoracic radiculopathy. We discussed medication and other pain management options, but the patient was happy that nothing serious was found and stated that she can deal with her current level of discomfort and did not wish further workup at this time. I thank you for the referral of this pleasant lady. Job ID: [id number] DocumentID: [id number] Dictated Date: 08/30/2018 12:03:57 Plodding Machine Operator Date: 08/30/2018 20:28:11 Dictated By: CJ CULLEN MD MTDD
== END 2018-08-30 12:20 | disposition home or self-care (01) ==
LOC: ENDO 09:50
PROVIDERS: ATTEND Internal Medicine
DX: R10.12 Left upper quadrant pain (principal); K90.0 Celiac disease; M54.14 Radiculopathy, thoracic region; F41.9 Anxiety disorder, unspecified; Z79.899 Other long term (current) drug therapy
CPT/HCPCS: 84703

== ENCOUNTER 2019-08-18 17:27 | Emergency (ER) | payer OTHER ==
[~2019-08-18] VITALS: Ht 179 cm; Wt 88.0 kg
[~2019-08-18 17:27] MED LIST changes: -DICY20TA10 PO; -HYDR-4227 PO; -HYOS0.1283 SL; -ONDA8TAB13 PO
--- NOTE | 2019-08-18 17:33 | NUR ---
patient happy, complaint of abdominal pain, but asking to eat her [employer] sandwich.
--- NOTE | 2019-08-18 17:45 | NUR ---
Patient asking to eat, complaint of abdomainal pain.
[2019-08-18] MEDS ORDERED: LACTATED RINGERS 1,000 ML IV ONE (18:02)
[2019-08-18 18:13] LABS: BILIRUBIN,URINE NEGATIVE (NEGATIVE); CLARITY,URINE CLEAR; COLOR,URINE YELLOW; GLUCOSE, URINE (UA) NEGATIVE (NEGATIVE); KETONES,URINE NEGATIVE (NEGATIVE); LEUKOCYTE ESTERASE ,URINE NEGATIVE (NEGATIVE); NITRITE,URINE NEGATIVE (NEGATIVE); PH,URINE 6.5 (5-9); PROTEIN,URINE NEGATIVE (NEGATIVE)
--- NOTE | 2019-08-18 18:18 | ED Abdominal Pain ---
General Chief Complaint: Abdominal/GI Problems Stated Complaint: ABD PAIN RT SIDE Nursing Triage Note: urgent care for abdomainal pain, pain increases with lying down, eating, vomitting, Sepsis Screen: No Definite Risk Source of Information: Patient (VERY DRAMATIC, TALKS NON-STOP) History of Present Illness Date Seen by Provider: Aug 18, 2019 Time Seen by Provider: 18:00 Initial Comments PT ARRIVES VIA POV=--SENT FROM [facility] PT HAD OUTPATIENT ULTRASOUND, XRAYS AND LAB JUST PRIOR TO ARRIVAL--RESULTS UNKNOWN. PT STATES "I'M HAVING EXTREME RIGHT UPPER QUADRANT PAIN" SHE IS SMILING AND GIGGLING, AND SITTING UPRIGHT STYLE PAIN HAS BEEN ONGOING FOR THE LAST 3 WEEKS PAIN IS WORSE WITH LAYING DOWN, OR STRETCHING HER UPPER BODY IMPROVED WITH BENDING OVER HAS OCCASIONAL NAUSEA AND "VOMITING BILE" BUT NOT TODAY NO DIARRHEA NO RADIATION OF PAIN NO URINARY SYMPTOMS PT HAD THE FLU 3 WEEKS AGO, AND HAD FEVER AND COUGH AT THAT TIME TOOK TAMIFLU--STATES "IT DIDN'T HELP" STATES SHE HAS NOT HAD FEVER FOR 1 1/2 WEEKS, AND STILL HAS A SLIGHT COUGH STATES PAIN IN RUQ BEGAN AT THAT TIME--THOUGHT IT WAS DUE TO COUGHING HAS NOT TAKEN ANYTHING FOR SYMPTOMS AT ANY TIME PRIOR ABDOMINAL SURGERY--APPENDECTOMY LMP 08/03/19--NORMAL. NO CONTROL. OF NOTE, PT ORDERED FOOD/SANDWICH FROM [employer] WHILE SHE WAS IN THE WAITING ROOM AND HAD IT DELIVERED TO THE WAITING ROOM. SHE WAS ADVISED NOT TO EAT IT AND THAT SHE NEEDED TO REMAIN NPO, SHE IS COMPLAINING OF "EXCRUCIATING ABDOMINAL PAIN"-- WHICH SHE IS EXTREMELY UNHAPPY ABOUT BEING TOLD SHE COULD NOT EAT OR DRINK, AND IS REPEATEDLY LOUDLY VOCAL ABOUT THIS PT HAS HAD CLAIMED THAT SHE HAS CELIAC DISEASE AND ALLERGIC TO GLUTEN IN THE PAST. PT HAS HAD EGD'S/COLONOSCOPIES, CT'S IN THE PAST FOR CHRONIC ABDOMINAL PAIN COMPLAINTS HAD EGD 03/2018 AND COLONOSCOPY 08/2018 HAS ALSO HAD EXTENSIVE WORK UP'S FOR COMPLAINT OF CHRONIC THORACIC AND LUMBAR PAIN PCP: DR. CHIANG--HAS NOT SEEN HER IN A LONG TIME. Allergies and Home Medications Allergies Coded Allergies: cefixime (Verified Allergy, Unknown, 07/16/07) codeine (Verified Allergy, Unknown, 03/14/18) gluten (Verified Allergy, Unknown, 12/16/14) sulfamethoxazole (Verified Allergy, Unknown, 07/16/07) trimethoprim (Verified Allergy, Unknown, 07/16/07) dexamethasone (Unverified Adverse Reaction, Unknown, HALLUCINATIONS, PANIC ATTACKS. , 12/16/14) Home Medications Bupropion HCl 300 Mg Tab.er.24h, 300 MG PO DAILY, (Reported) Dicyclomine HCl 20 Mg Tablet, 20 MG PO Q6H Prescribed by: FARHANA GRAHAM on 08/18/192008 Hydrocodone/Acetaminophen 1 Each Tablet, 1-2 TAB PO Q4H Prescribed by: NOMAN CHOU on 08/20/19 1237 Hyoscyamine Sulfate 0.125 Mg Tab.subl, 0.25 MG SL Q4H Prescribed by: FARHANA GRAHAM on 08/18/192008 Ondansetron 8 Mg Tab.rapdis, 8 MG PO Q6H Prescribed by: FARHANA GRAHAM on 08/18/192006 Pantoprazole Sodium 40 Mg Tablet.dr, 40 MG PO DAILY Prescribed by: FARHANA GRAHAM on 08/18/192008 [Bcp] , 1 TAB PO DAILY, (Reported) Patient Home Medication List Home Medication List Reviewed: Yes Review of Systems Review of Systems Constitutional: no symptoms reported; No chills, No diaphoresis, No dizziness, No fever EENTM: No Symptoms Reported Respiratory: No Symptoms Reported Cardiovascular: No Symptoms Reported Gastrointestinal: See HPI, Abdominal Pain, Nausea Genitourinary: No Symptoms Reported Musculoskeletal: no symptoms reported Skin: no symptoms reported Psychiatric/Neurological: No Symptoms Reported Endocrine: No Symptoms Reported Past Bvaqnko-Yhrxam-Hdeyir Hx Patient Social History Alcohol Use: Regular Use (DRINKS DAILY) Alcohol Beverage of Choice: Wine Recreational Drug Use: No Smoking Status: Never a Smoker 2nd Hand Smoke Exposure: No Recent Foreign Travel: No Contact w/Someone Who Travel: No Recent Infectious Disease Expo: No Recent Hopitalizations: No Physical Abuse: No Sexual Abuse: No Mistreated: No Fear: No Seasonal Allergies Seasonal Allergies: Yes Past Medical History Surgeries: Yes (CERVICAL SPINE FUSION C5-6; HYSTEROSCOPY; EGD 03/2018;COLONOSCOPY 08/2018) Adenoidectomy, Appendectomy, Neurological, Tonsillectomy Respiratory: No Cardiac: No Neurological: No Reproductive Disorders: Yes Female Reproductive Disorders: Ovarian Cyst Genitourinary: No Gastrointestinal: Yes (CELIAC DISEASE, "GLUTEN ALLERGY" ) Musculoskeletal: Yes (BACK AND NECK PAIN-C5-6 FUSION) Chronic Back Pain Endocrine: No HEENT: Yes (S/P T&A) Tonsilitis Cancer: No Psychosocial: Yes Anxiety, Depression Integumentary: No Blood Disorders: No Family Medical History No Pertinent Family Hx Physical Exam Vital Signs Vital Signs - First Documented 08/18/19 17:39 Temp 37.2 Pulse 110 Resp 18 B/P (MAP) 132/85 (101) Pulse Ox 99 O2 Delivery Room Air Capillary Refill : Less Than 3 Seconds Height/Weight/BMI Height: 5'10.00" Weight: 201lbs. 0.0oz. 91.581167ao; 27.00 BMI Method:Stated General Appearance: WD/WN, no apparent distress, other (SITTING UPRIGHT, STYLE, WALKS UPRIGHT AND MOVES WITHOUT DIFFICULTY, SMILING, TALKS NON-STOP, DOES NOT APPEAR ILL OR TO BE IN ANY DISCOMFORT OR DISTRESS. FULL MAKEUP, HAIR DONE. VERY DEMANDING. .) HEENT: PERRL/EOMI Respiratory: normal breath sounds, no respiratory distress, no accessory muscle use Cardiovascular: regular rate, rhythm, no edema, no JVD, no murmur Gastrointestinal: soft, guarding, tenderness (MODERATE TENDERNESS TO LUQ AND EPIGASTRIC AREA--MARKEDLY EXAGGERATED PAIN RESPONSE ON ATTEMPT TO PALPATE RUQ AND SHE GRABBED MY HAND AND PUSHED IT AWAY. 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, no motor/sensory deficits, alert, oriented x 3, other (BEHAVIOR ABOVE) Skin: normal color, warm/dry; No rash Progress/Results/Core Measures Results/Orders Lab Results Laboratory Tests Test 08/18/19 17:45 08/18/19 18:10 Range/Units Urine Color YELLOW Urine Clarity CLEAR Urine pH 6.5 5-9 Urine Specific [place] 1.015 L 1.016-1.022 Urine Protein NEGATIVE NEGATIVE Urine Glucose (UA) NEGATIVE NEGATIVE Urine Ketones NEGATIVE NEGATIVE Urine Nitrite NEGATIVE NEGATIVE Urine Bilirubin NEGATIVE NEGATIVE Urine Urobilinogen 0.2 < = 1.0 MG/DL Urine Leukocyte Esterase NEGATIVE NEGATIVE Urine RBC (Auto) NEGATIVE NEGATIVE Urine RBC NONE /HPF Urine WBC NONE /HPF Urine Squamous Epithelial Cells 2-5 /HPF Urine Crystals NONE /LPF Urine Bacteria NEGATIVE /HPF Urine Casts NONE /LPF Urine Mucus NEGATIVE /LPF Urine Culture Indicated NO Urine Opiates Screen NEGATIVE NEGATIVE Urine Oxycodone Screen NEGATIVE NEGATIVE Urine Methadone Screen NEGATIVE NEGATIVE Urine Propoxyphene Screen NEGATIVE NEGATIVE Urine Barbiturates Screen NEGATIVE NEGATIVE Ur Tricyclic Antidepressants Screen NEGATIVE NEGATIVE Urine Phencyclidine Screen NEGATIVE NEGATIVE Urine Amphetamines Screen NEGATIVE NEGATIVE Urine Methamphetamines Screen NEGATIVE NEGATIVE Urine Benzodiazepines Screen NEGATIVE NEGATIVE Urine Cocaine Screen NEGATIVE NEGATIVE Urine Cannabinoids Screen NEGATIVE NEGATIVE White Blood Count 14.3 H 4.3-11.0 10^3/uL Red Blood Count 4.64 4.35-5.85 10^6/uL Hemoglobin 14.1 11.5-16.0 G/DL Hematocrit 41 35-52 % Mean Corpuscular Volume 88 80-99 FL Mean Corpuscular Hemoglobin 30 25-34 PG Mean Corpuscular Hemoglobin Concent 35 32-36 G/DL Red Cell Distribution Width 12.8 10.0-14.5 % Platelet Count 397 130-400 10^3/uL Mean Platelet Volume 8.9 7.4-10.4 FL Neutrophils (%) (Auto) 64 42-75 % Lymphocytes (%) (Auto) 25 12-44 % Monocytes (%) (Auto) 10 0-12 % Eosinophils (%) (Auto) 1 0-10 % Basophils (%) (Auto) 0 0-10 % Neutrophils # (Auto) 9.2 H 1.8-7.8 X 10^3 Lymphocytes # (Auto) 3.5 1.0-4.0 X 10^3 Monocytes # (Auto) 1.4 H 0.0-1.0 X 10^3 Eosinophils # (Auto) 0.1 0.0-0.3 10^3/uL Basophils # (Auto) 0.0 0.0-0.1 10^3/uL Neutrophils % (Manual) 63 % Lymphocytes % (Manual) 29 % Monocytes % (Manual) 6 % Eosinophils % (Manual) 2 % Polychromasia Blood Morphology Comment NORMAL Sodium Level 137 135-145 MMOL/L Potassium Level 4.0 3.6-5.0 MMOL/L Chloride Level 104 98-107 MMOL/L Carbon Dioxide Level 21 21-32 MMOL/L Anion Gap 12 5-14 MMOL/L Blood Urea Nitrogen 10 7-18 MG/DL Creatinine 0.81 0.60-1.30 MG/DL Estimat Glomerular Filtration Rate > 60 BUN/Creatinine Ratio 12 Glucose Level 90 70-105 MG/DL Calcium Level 9.1 8.5-10.1 MG/DL Corrected Calcium 8.7 8.5-10.1 MG/DL Total Bilirubin 0.4 0.1-1.0 MG/DL Aspartate Amino Transf (AST/SGOT) 17 5-34 U/L Alanine Aminotransferase (ALT/SGPT) 16 0-55 U/L Alkaline Phosphatase 56 40-136 U/L Total Protein 7.1 6.4-8.2 GM/DL Albumin 4.5 3.2-4.5 GM/DL Amylase Level 63 25-125 U/L Lipase 33 8-78 U/L Serum Alcohol < 10 <10 MG/DL My Orders Orders - FARHANA GRAHAM DO Ed Iv/Invasive Line Start (08/18/19 18:02) Amylase (08/18/19 18:02) Cbc With Automated Diff (08/18/19 18:02) Comprehensive Metabolic Panel (08/18/19 18:02) Lipase (08/18/19 18:02) Ed Iv/Invasive Line Start (08/18/19 18:02) Lactated Ringers (Lr 1000 Ml Iv Solution (08/18/19 18:02) Manual Differential (08/18/19 18:10) Ondansetron Injection (Zofran Injectio (08/18/19 18:30) Pantoprazole Injection (Protonix Injecti (08/18/19 18:30) Ct Chest/Abdomen/Pelvis W (08/18/19 18:31) Alcohol (08/18/19 18:31) Drug Screen Stat (Urine) (08/18/19 18:31) Iohexol Injection (Omnipaque 350 Mg/Ml 1 (08/18/19 19:00) Received Contrast (Hold Metformin- Contr (08/18/19 19:00) Ns (Ivpb) (Sodium Chloride 0.9% Ivpb Bag (08/18/19 19:00) Ondansetron Injection (Zofran Injectio (08/18/19 19:15) Ketorolac Injection (Toradol Injection) (08/18/19 20:15) Hyoscyamine Sl Tablet (Levsin Sl Tablet) (08/18/19 20:15) Dicyclomine Injection (Bentyl Injection) (08/18/19 20:15) Rx-Hyoscyamine Tab (Rx-Levsin Sl) (08/18/19 20:27) Rx-Dicyclomine Capsule (Rx-Bentyl Capsul (08/18/19 20:27) Rx-Tramadol Hcl (Rx-Ultram) (08/18/19 20:27) Rx-Ondansetron Po (Rx-Zofran Po) (08/18/19 20:27) Ketorolac Injection (Toradol Injection) (08/18/19 20:14) Hyoscyamine Sl Tablet (Levsin Sl Tablet) (08/18/19 20:14) Dicyclomine Injection (Bentyl Injection) (08/18/19 20:14) Fentanyl Injection (Sublimaze Injection (08/20/19 12:36) Midazolam Injection (Versed Injection) (08/20/19 12:36) Medications Given in ED Vital Signs/I&O 08/18/19 08/18/19 17:39 20:45 Temp 37.2 37.5 Pulse 110 98 Resp 18 20 B/P (MAP) 132/85 (101) 149/98 Pulse Ox 99 96 O2 Delivery Room Air Room Air Blood Pressure Mean: 101 Progress Progress Note : Progress Note NO VOMITING DURING ER STAY VITALS STABLE PT'S DRAMATIC BEHAVIOR ESCALATED AND SHE BEGAN CRYING AND WAILING WHEN I INFORMED HER OF ESSENTIALLY NORMAL CT RESULTS. SHE BECAME MORE DEMANDING AND HOSTILE I DISCUSSED PLANS FOR DISMISSAL. DEMANDING THAT DR ZAPATA TAKE HER TO SURGERY IMMEDIATELY--I ADVISED PT THAT SHE DID NOT HAVE ANY SURGICAL EMERGENCY OR ANY FINDINGS AT ALL THAT WARRANTED SURGERY AT THIS TIME. ADVISED HER THAT SHE MAY NEED ADDITIONAL OUTPATIENT TESTS SUCH HIDA SCAN OR ENDOSCOPIES, ETC. ALSO ADVISED THAT IT IS POSSIBLE THAT HER CONDITION MAY NOT REQUIRE SURGERY OF ANY KIND, BASED ON FURTHER TESTING RESULTS. HER BEHAVIOR CONTINUED TO ESCALATE AFTER THAT. PT REFUSED BENTYL INJECTION SHE IS COMPLAINING OF HER EXCRUCIATING ABDOMINAL PAIN, SHE REPEATEDLY IS ASKING WHEN SHE CAN EAT HER FOOD THAT SHE ORDERED FROM [facility] PT VERY DEFIANT AND VERY ARGUMENTATIVE DURING ER STAY--STATING SHE WASN'T GOING TO DO ANY OF THE THINGS THAT SHE WAS ADVISED, SUCH TAKING THE PRESCRIBED MEDICATION, AND STATING THAT SHE WAS GOING TO EAT "WHATEVER SHE WANTS" AND WOULD NOT BE FOLLOWING THE RECOMMENDED CLEAR LIQUIDS FOLLOWED BY [facility]. Diagnostic Imaging Comments CT CHEST/ABDOMEN/PELVIS: PER RADIOLOGIST REPORT AT 2000 IMPRESSION: Normal CT of the chest. CT of the abdomen and pelvis shows partially collapsed small right ovarian cyst with a small amount of free fluid in the dependent portion of the pelvis. No other abnormality is seen. Reviewed: Reviewed by Me Departure Communication (Admissions) 1930--DR. ZAPATA HIS HERE IN ER. PT'S AUNT ( WHO IS A NURSE ) HAS CALLED HIM WHILE PT HAS BEEN IN ER, REGARDING PT, AND HE WILL SEE HER IN FOLLOW UP IN OFFICE. Impression Primary Impression: Right upper quadrant abdominal pain Disposition: HOME, SELF-CARE Condition: Stable Departure-Patient Inst. Referrals: SHIRIN ZAPATA JACQUELINE S DO (PCP/Family) Primary Care Physician Patient Instructions: Acute Abdomen (Belly Pain), Adult (DC) Add. Discharge Instructions: CLEAR LIQUIDS--WATER, BROTH, JELLO, GATORADE TOMORROW IF YOU ARE BETTER, ADD [facility] TO CLEAR LIQUIDS--BANANAS, RICE, APPLESAUCE, TOAST, SALTINES FOLLOW UP WITH DR. ZAPATA THIS WEEK FOR FURTHER CARE--CALL IN AM FOR APPOINTMENT All discharge instructions reviewed with patient and/or family. Voiced understanding. Scripts Hyoscyamine Sulfate (Levsin-Sl) 0.125 Mg Tab.subl 0.25 MG SL Q4H, #10 TAB Prov: FARHANA GRAHAM DO 08/18/19 Dicyclomine HCl (Dicyclomine HCl) 20 Mg Tablet 20 MG PO Q6H for Abdominal Pain, #20 TAB Prov: FARHANA GRAHAM DO 08/18/19 Pantoprazole Sodium (Protonix) 40 Mg Tablet.dr 40 MG PO DAILY, #15 TAB Prov: FARHANA GRAHAM DO 08/18/19 Ondansetron (Ondansetron Odt) 8 Mg Tab.rapdis 8 MG PO Q6H for Nausea/Vomiting, #10 TAB Prov: FARHANA GRAHAM DO 08/18/19 FARHANA GRAHAM DO Aug 18, 2019 18:18
[2019-08-18 18:23] LABS: BASOPHILS % (AUTO) 0 % (0-10); EOSINOPHILS # (AUTO) 0.1 10^3/uL (0.0-0.3); EOSINOPHILS % (AUTO) 1 % (0-10); HEMATOCRIT 41 % (35-52); HEMOGLOBIN 14.1 G/DL (11.5-16.0); LYMPHOCYTES # (AUTO) 3.5 X 10^3 (1.0-4.0); LYMPHOCYTES % (AUTO) 25 % (12-44); MEAN CORPUSCULAR HEMOGLOBIN 30 PG (25-34); MEAN CORPUSCULAR HGB CONC 35 G/DL (32-36); MEAN CORPUSCULAR VOLUME 88 FL (80-99); MEAN PLATELET VOLUME 8.9 FL (7.4-10.4); MONOCYTES # (AUTO) 1.4 X 10^3 (0.0-1.0); MONOCYTES % (AUTO) 10 % (0-12); NEUTROPHILS # (AUTO) 9.2 X 10^3 (1.8-7.8); NEUTROPHILS % (AUTO) 64 % (42-75); PLATELET COUNT 397 10^3/uL (130-400); RED CELL DISTRIBUTION WIDTH 12.8 % (10.0-14.5); WHITE BLOOD COUNT 14.3 10^3/uL (4.3-11.0)
[2019-08-18 18:23] LABS: BACTERIA,URINE NEGATIVE /HPF
[2019-08-18] MEDS ORDERED: ONDANSETRON 4 MG/2 ML (SDV) Z0FRAN IVP ONE ×2 (18:30→19:15)
[2019-08-18] MEDS ORDERED: PANTOPRAZOLE 40 MG (PROTONIX) VIAL IV ONE (18:30)
[2019-08-18 18:42] LABS: ALANINE AMINOTRANSFERASE 16 U/L (0-55); ALBUMIN 4.5 GM/DL (3.2-4.5); ALKALINE PHOSPHATASE 56 U/L (40-136); AMYLASE 63 U/L (25-125); BILIRUBIN,TOTAL 0.4 MG/DL (0.1-1.0); BUN/CREATININE RATIO 12; CALCIUM 9.1 MG/DL (8.5-10.1); CARBON DIOXIDE 21 MMOL/L (21-32); CHLORIDE 104 MMOL/L (98-107); CREATININE SERUM 0.81 MG/DL (0.60-1.30); GFR ESTIMATED > 60; GLUCOSE 90 MG/DL (70-105); LIPASE 33 U/L (8-78); SODIUM 137 MMOL/L (135-145); TOTAL PROTEIN 7.1 GM/DL (6.4-8.2)
[2019-08-18 18:45] LABS: EOSINOPHILS % (MANUAL) 2 %; LYMPHOCYTES % (MANUAL) 29 %; MONOCYTES % (MANUAL) 6 %; NEUTROPHILS % (MANUAL) 63 %; RBC MORPH NORMAL
[2019-08-18] MEDS ORDERED: NS 100 ML (IVPB) BAG IV ONE (19:00)
[2019-08-18] MEDS ORDERED: HOLD METFORMIN - RECEIVED CONTRAST 20 ML VIAL IV SCH (19:00)
[2019-08-18] MEDS ORDERED: IOHEXOL 350 MG/ML 100 ML (OMNIPAQUE 350) VIAL IV ONE (19:00)
[2019-08-18 19:50] LABS: AMPHETAMINE SCREEN, URINE NEGATIVE (NEGATIVE); BARBITURATE SCREEN URINE NEGATIVE (NEGATIVE); BENZODIAZEPINES SCREEN URINE NEGATIVE (NEGATIVE); CANNABINOID SCREEN, URINE NEGATIVE (NEGATIVE); COCAINE SCREEN URINE NEGATIVE (NEGATIVE); METHADONE STAT NEGATIVE (NEGATIVE); METHAMPHETAMINE SCREEN URINE S NEGATIVE (NEGATIVE); OPIATE SCREEN URINE NEGATIVE (NEGATIVE); OXYCODONE STAT NEGATIVE (NEGATIVE); PROPOXYPHENE STAT NEGATIVE (NEGATIVE); TRICYCLIC ANTIDEPRESSANTS SCRE NEGATIVE (NEGATIVE)
--- NOTE | 2019-08-18 19:58 | Diagnostic Imaging Report ---
PROCEDURE: CT chest, abdomen, and pelvis with contrast. TECHNIQUE: Multiple contiguous axial images were obtained through the chest, abdomen, and pelvis after the administration of intravenous contrast. Auto Exposure Controls were utilized during the CT exam to meet ALARA standards for radiation dose reduction. INDICATION: Pain in the rib cage. Recent history of flu. CT CHEST: The lungs are well-expanded with no mass or infiltrate. There is no effusion or pneumothorax. There is no mediastinal mass or adenopathy. No vascular abnormality is seen. No chest wall abnormality is seen. There is no bony abnormality. CT abdomen and pelvis: The liver, gallbladder and bile ducts are normal. The spleen, pancreas and adrenals are normal. The kidneys, ureters and bladder are normal. There is 15 mm slightly irregular cyst on the right ovary which may be a partially ruptured follicular cyst. There is a small amount of free fluid in the dependent portion of the pelvis. No acute bowel abnormality is seen. The appendix is not directly visualized with no inflammation seen in the region of the cecum. There is no free intraperitoneal air. There is no bony abnormality. IMPRESSION: Normal CT of the chest. CT of the abdomen and pelvis shows partially collapsed small right ovarian cyst with a small amount of free fluid in the dependent portion of the pelvis. No other abnormality is seen. Dictated by: Dictated on workstation # [id number]
[2019-08-18] MEDS ORDERED: ONDA8TAB13 PO (20:07)
[2019-08-18] MEDS ORDERED: HYOS0.1283 SL (20:09)
[2019-08-18] MEDS ORDERED: DICY20TA10 PO (20:09)
[2019-08-18] MEDS ORDERED: PANT40TA2 PO (20:09)
[2019-08-18] MEDS ORDERED: KETOROLAC 30 MG/ML VIAL ONE (20:14)
[2019-08-18] MEDS ORDERED: DICYCLOMINE 10 MG/ML (BENTYL) 2 ML AMP IM ONE ×2 (20:14→20:15)
[2019-08-18] MEDS ORDERED: HYOSCYAMINE 0.125 MG (LEVSIN) TAB ONE (20:14)
[2019-08-18] MEDS ORDERED: HYOSCYAMINE 0.125 MG (LEVSIN) TAB PO ONE (20:15)
[2019-08-18] MEDS ORDERED: KETOROLAC 30 MG/ML VIAL IVP ONE (20:15)
--- NOTE | 2019-08-18 20:24 | NUR ---
Patient states Hydrocodone is what works for me, I have had many surgeries and this is the only med that works. patient refused to let this RN give her the Bentyl IM shot. Said it won't work. Patient crying saying "why can't she give me what works"
[2019-08-18] MEDS ORDERED: RX-ONDANSETRON 4 MG ODT (ZOFRAN) PPK #4 PO STA (20:27)
[2019-08-18] MEDS ORDERED: RX-TRAMADOL 50 MG (ULTRAM) TAB PPK#4 PO STA (20:27)
[2019-08-18] MEDS ORDERED: RX-DICYCLOMINE 10 MG (BENTYL) CAP PPK#4 PO STA (20:27)
[2019-08-18] MEDS ORDERED: RX-HYOSCYAMINE 0.125 MG SL (LEVSIN) PPK#6 SL STA (20:27)
[2019-08-18 20:45] VITALS: BP 149/98
--- NOTE | 2019-08-18 20:55 | NUR ---
Patient called hospital, asking for a different doctor, patient states she saw Dr Jarrett and did not give her the right pain med.
--- OUTSIDE RECORDS SUMMARY | 2019-08-19 01:15 | XMS REPORT | CCD ---
Author Author Venecia Morales D.O. Organization [facility] Address [address] [place] [address] Phone Care Team Providers Care Matcher [employer] Name Role Phone Tiara Morales D.O., PP Unavailable CCM Unavailable Summary Purpose Interface Exchange Insurance Providers Payer name Policy type / Coverage type Covered constitution party ID Effective Begin Date Effective End Date [employer] Commercial Insurance [id number] 2019 Unknown Family history Mother Diagnosis Age At Onset Heart disease Unknown Father Diagnosis Age At Onset Heart disease Unknown Social History Social History Element Codes Description Effective Dates Tobacco history SNOMED CT: [id number] Nonsmoker 12/14/2010 Marital status Unknown Single 08/10/2009 Allergies, Adverse Reactions, Alerts Substance Reaction Codes Entered Date Inactivated Date Status Wheat _ Unknown 08/10/2009 No Inactive Date Active CEPHALOSPORINS reaction Unknown 10/26/2016 No Inactive Date Acti ve CODEINE nausea, Unknown 08/10/2009 No Inactive Date Active * NO KNOWN ENVIRONMENTAL ALLERGIES Unknown 08/10/2009 N o Inactive Date Active Problems Condition Codes Effective Dates Condition Status Chest wall pain ICD-9: 786.52 ICD-10: R07.89 08/12/2019 Active Costochondritis, acute ICD-9: 733.6 ICD-10: M94.0 08/12/2019 Active Tear of right retina without detachment ICD-9: 361.30 ICD-10: H33.301 08/12/2019 Active Other fatigue ICD-9: 780.79 ICD-10: R53.83 12/11/2018 Active Spontaneous ecchymoses ICD-9: 782.7 ICD-10: R23.3 12/11/2018 Active Hyperglycemia, unspecified ICD-9: 790.29 ICD-10: R73.9 04/20/2016 Active Left upper quadrant pain ICD-9: 789.02 ICD-10: R10.12 09/26/2016 Active Right upper quadrant pain ICD-9: 789.01 ICD-10: R10.11 08/12/2018 Active Acute sinusitis, unspecified ICD-9: 461.9 ICD-10: J01.90 06/28/2018 Active SCREENING-PULMONARY TB ICD-9: V74.1 ICD-10: Z11.1 05/08/2018 Active Encounter for general adult medical examination withou t abnormal findings ICD-9: V70.9 ICD-10: Z00.00 04/23/2018 Active Polyneuropathy, unspecified ICD-9: 356.9 ICD-10: G62.9 04/19/2016 Active Dysuria ICD-9: 788.1 ICD-10: R30.0 02/27/2016 Active Epigastric pain ICD-9: 789.06 ICD-10: R10.13 10/03/2016 Active Left lower quadrant pain ICD-9: 789.04 ICD-10: R10.32 10/03/2016 Active Urinary tract infection, site not specified ICD-9: 599 .0 ICD-10: N39.0 07/25/2016 Active Deficiency of other specified B group vitamins ICD-9: 266.2 ICD-10: E53.8 02/19/2014 Active Other lack of coordination ICD-9: 781.3 ICD-10: R27.8 04/19/2016 Active Generalized enlarged lymph nodes ICD-9: 785.6 ICD-10: R59.1 03/08/2016 Active Polyneuropathy, unspecified ICD-9: 355.9 ICD-10: G62.9 12/20/2015 Active Neuralgia and neuritis, unspecified ICD-9: 729.2 ICD-10: M79.2 09/26/2015 Active Radiculopathy, cervical region ICD-9: 723.4 ICD-10: M54.12 09/22/2014 Active Generalized anxiety disorder ICD-9: 300.00 ICD-10: F41.1 11/08/2014 Active Other cervical disc displacement, unspecified cervical region ICD-9: 722.0 ICD-10: M50.20 10/07/2014 Active Acute stress reaction ICD-9: 308.9 ICD-10: F43.0 07/26/2015 Active Melanocytic nevi, unspecified ICD-9: 216.9 ICD-10: D22.9 07/26/2015 Active Vitamin D deficiency, unspecified ICD-9: 268.9 ICD-10: E55.9 06/07/2015 Active Cervicalgia ICD-9: 723.1 ICD-10: M54.2 09/16/2014 Active Mononeuropathy, unspecified ICD-9: 782.0 ICD-10: G58.9 09/25/2013 Active Headache ICD-9: 784.0 ICD-10: R51 02/03/2015 Active Intervertebral disc disorders with myelopathy, lumbar region ICD-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 ICD-10: M51.06 05/04/2015 Active Insect bite (nonvenomous) of breast, right breast, ini tial encounter ICD-9: 911.4 ICD-10: S20.161A 03/28/2015 Active ARTHRALGIA-MULTIPLE SITES ICD-9: 719.49 02/14/2015 Active MALAISE AND FATIGUE ICD-9: 780.79 02/14/2015 Active MUSCLE WEAKNESS-GENERAL ICD-9: 728.87 02/14/2015 Active CEPHALGIA ICD-9: 784.0 02/03/2015 Active URINARY TRACT INFECTION ICD-9: 599.0 02/03/2015 Active HEMATURIA NOS ICD-9: 599.70 02/01/2015 Active ABNORMAL WEIGHT GAIN ICD-9: 783.1 08/08/2013 Active Radiculopathy of leg ICD-9: 724.4 12/15/2014 Active URINARY INCONTINENCE ICD-9: 788.30 12/15/2014 Active ANXIETY STATE NOS ICD-9: 300.00 11/08/2014 Active S/P cervical spinal fusion ICD-9: V45.4 11/08/2014 Activ e Degenerative disc disease, cervical ICD-9: 722.4 10/07/2014 Active Herniated disc, cervical ICD-9: 722.0 10/07/2014 Active Trapezius muscle spasm ICD-9: 728.85 10/01/2014 Active Radiculopathy of arm ICD-9: 723.4 09/22/2014 Active SCIATICA ICD-9: 724.3 09/22/2014 Active CERVICALGIA ICD-9: 723.1 09/16/2014 Active Shoulder pain, acute ICD-9: 719.41 09/16/2014 Active Ingrown hair ICD-9: 704.8 06/12/2014 Active KELOID SCAR ICD-9: 701.4 06/12/2014 Active SINUSITIS, ACUTE ICD-9: 461.9 03/13/2014 Active B12 deficiency ICD-9: 266.2 02/19/2014 Active Lateral epicondylitis ICD-9: 726.32 02/19/2014 Active MIGRAINE NOS/NOT INTRCBL ICD-9: 346.90 09/25/2013 Active Numbness and tingling ICD-9: 782.0 09/25/2013 Active Contact dermatitis and eczema ICD-9: 692.9 08/08/2013 Ac tive Rash ICD-9: 782.1 12/26/2012 Active ALLERGIC RHINITIS ICD-9: 477.9 11/28/2012 Active FEBRILE ILLNESS ICD-9: 780.60 05/21/2012 Active Menstrual cramps ICD-9: 625.3 09/13/2011 Active ABDOMINAL PAIN ICD-9: 789.00 08/10/2009 Active Celiac disease Unknown 07/28/2009 Active Medications Medication Codes Instructions Start Date Stop Date Status Fill Instructions Augmentin 875 mg-125 mg tablet RxNorm: 352030 1 Tablet(s) PO BID 07/07/2018 Inactive prednisone 20 mg tablet RxNorm: 338826 2 Tablet(s) PO QD 06/28/2018 0 07/02/2018 Inactive Macrobid 100 mg capsule RxNorm: 308576 1 Capsule(s) PO BID 10/27/19 17 10/25/2016 Inactive fluconazole 100 mg tablet RxNorm: 794422 1 Tablet(s) PO QD 10/27/19 17 11/01/2016 Inactive Macrobid 100 mg capsule RxNorm: 146274 1 Capsule(s) PO BID 10/27/19 17 11/01/2016 Inactive fluconazole 100 mg tablet RxNorm: 361353 1 Tablet(s) PO QD 10/27/19 17 10/25/2016 Inactive Pepcid 20 mg tablet RxNorm: 339952 1 Tablet(s) PO BID 09/26/201604/04 Inactive cyanocobalamin (vit B-12) 1,000 mcg/mL injection solution Rx Norm: 884476 1 Milliliter(s) Inj every 2 weeks for 3 months 04/21/2016 04/22/2018 [place] ctive cyanocobalamin (vit B-12) 1,000 mcg/mL injection solution Rx Norm: 199546 1 Milliliter(s) Inj every 2 weeks for 3 months 04/21/2016 04/20/2016 Yv[place] ctive Bactrim DS 800 mg-160 mg tablet RxNorm: 910798 1 Tablet(s) PO BID 0 01/24/2016 01/23/2016 Inactive Bactrim DS 800 mg-160 mg tablet RxNorm: 595884 1 Tablet(s) PO BID 0 01/24/2016 01/30/2016 Inactive Cymbalta 60 mg capsule,delayed release RxNorm: 554955 1 Capsule (s) PO QD 01/11/2016 04/19/2016 Inactive Lyrica 50 mg capsule RxNorm: 390061 1 Capsule(s) PO QHS 12/21/2015 Inactive cyclobenzaprine 10 mg tablet RxNorm: 573377 1 Tablet(s) PO TID as needed for muscle spasm 09/27/2015 12/20/2015 Inactive Medrol (Mane) 4 mg tablets in a dose pack RxNorm: 839570 Tablet(s) PO As Directed 09/27/2015 12/20/2015 Inactive Cymbalta 60 mg capsule,delayed release RxNorm: 123440 1 Capsule (s) PO QD 08/26/2015 10/24/2015 Inactive Cymbalta 30 mg capsule,delayed release RxNorm: 752565 1 Capsule (s) PO QAM 07/27/2015 08/25/2015 Inactive cyclobenzaprine 10 mg tablet RxNorm: 321919 1 Tablet(s) PO Q8H as needed for muscle spasm 05/05/2015 06/07/2015 Inactive mupirocin 2 % topical ointment RxNorm: 663081 TOP 03/29/2015 1 07/05/2014 Inactive gabapentin 600 mg tablet RxNorm: 998412 1 Tablet(s) PO QHS 02/19/20 15 05/04/2015 Inactive Cipro 500 mg tablet RxNorm: 319410 1 Tablet(s) PO BID 02/02/201501/04 Inactive Cipro 500 mg tablet RxNorm: 818757 1 Tablet(s) PO BID 02/02/2015 0912/2014 Inactive Zoloft 50 mg tablet RxNorm: 737243 1 Tablet(s) PO QHS f or 1 week then increase to 1 po q HS 01/21/2015 05/04/2015 Inactive Zoloft 50 mg tablet RxNorm: 867504 1/2 Tablet(s) PO QHS for 1 week then increase to 1 po q HS 11/09/2014 01/06/2015 Inactive hydrocodone 5 mg-acetaminophen 325 mg tablet RxNorm: 309894 1 T ablet(s) PO 10/01/2014 05/04/2015 Inactive Zorvolex 18 mg capsule RxNorm: 1098371 1 Capsule(s) PO TID 09/23/1910/06/2014 Inactive Medrol (Mane) 4 mg tablets in a dose pack RxNorm: 655819 Tablet(s) P O 09/16/2014 09/21/2014 Inactive Flexeril 10mg tablet RxNorm: 1 Tablet(s) PO Q8H 09/16/2014 5 Inactive Cyanacobalamin 1,000 mcg/mL injection solution RxNorm: 31610 4 1 Milliliter(s) Inj every 2 weeks 03/05/2014 10/06/2014 Inactive Mobic 15 mg tablet RxNorm: 213933 1 Tablet(s) PO QD 02/19/20142013 Inactive Septra DS 800 mg-160 mg tablet RxNorm: 377414 1 Tablet(s) PO BI D antibiotic 10/23/2013 11/05/2013 Inactive Topamax 50 mg tablet RxNorm: 616104 1 Tablet(s) PO QHS 09/25/2013 Inactive phentermine 37.5 mg capsule RxNorm: 523464 1 Capsule(s) PO QD 08/0809/06/2013 Inactive Zithromax 250 mg tablet RxNorm: 986763 2 Tablet(s) PO QD 11/28/2012 0 12/04/2012 Inactive prednisone 20 mg tablet RxNorm: 444052 1 Tablet(s) PO BID 11/28/2012 12/04/2012 Inactive Septra DS 800 mg-160 mg tablet RxNorm: 197427 1 Tablet( s) PO BID take one tablet twice daily. antibiotic 05/21/2012 06/03/2012 Inactive Lo Loestrin Fe 1 mg-10 mcg (24)/10 mcg (2) Tab RxNorm: 84748 84 1 Tablet(s) PO QD 09/13/2011 09/21/2014 Inactive Ultram 50 mg tablet RxNorm: 370380 1 Tablet(s) PO Q4H as needed for pain No Start Date 09/30/2014 Inactive Prilosec OTC 20 mg tablet,delayed release RxNorm: 937524 1 Tabl et(s) PO QD No Start Date 06/27/2018 Inactive paroxetine 30 mg tablet RxNorm: 7623606 1 Tablet(s) PO QD No Start Date 06/27/2018 Inactive Valium 5 mg tablet RxNorm: 859017 1 Tablet(s) PO QHS No Start Date Inactive Medrol (Mane) 4 mg tablets in a dose pack RxNorm: 862784 Tablet(s) PO As Directed No Start Date 09/26/2015 Inactive cyclobenzaprine 10 mg tablet RxNorm: 117956 1 Tablet(s) PO TID as needed for muscle spasm No Start Date 09/26/2015 Inactive Robaxin 750 mg tablet RxNorm: 491293 1 Tablet(s) PO Q4H as needed for muscle spasm No Start Date 12/29/2014 Inactive phentermine 30 mg capsule RxNorm: 104606 1 Capsule(s) PO QAM No Sta rt Date 02/18/2014 Inactive Cyanacobalamin 1,000 mcg/mL injection solution RxNorm: 65741 4 1 Milliliter(s) Inj every 2 weeks No Start Date 03/04/2014 Inactive cyclobenzaprine 10 mg tablet RxNorm: 390723 1 Tablet(s) PO Q8H as needed for muscle spasm No Start Date 05/04/2015 Inactive hydrocodone 5 mg-acetaminophen 325 mg tablet RxNorm: 921563 1 Tablet(s) PO as needed for pain No Start Date 04/19/2016 Inactive Vitamin D3 2,000 unit tablet RxNorm: 593106 1 Tablet(s) PO QD No St art Date 04/22/2018 Inactive hydrocodone 10 mg-acetaminophen 325 mg tablet RxNorm: 160417 1 Tablet(s) PO Q4H as needed for pain No Start Date 06/07/2015 Inactive Medication Administered No Medication Administered data Immunizations No Immunization data Results No Results data Procedures Procedure Codes Date TB INTRADERMAL TEST CPT-4: 52767 05/08/2018 URINALYSIS NONAUTO W/O SCOPE CPT-4: 51897 10/25/2016 URINE CULTURE/ COLONY COUNT CPT-4: 10464 10/25/2016 URINALYSIS NONAUTO W/O SCOPE CPT-4: 07739 07/25/2016 URINALYSIS NONAUTO W/O SCOPE CPT-4: 48317 02/28/2016 URINE CULTURE/ COLONY COUNT CPT-4: 47952 02/18/2015 URINALYSIS NONAUTO W/O SCOPE CPT-4: 71672 02/02/2015 URINE CULTURE/ COLONY COUNT CPT-4: 16510 02/02/2015 THER/PROPH/DIAG INJ SC/IM CPT-4: 76982 03/13/2014 METHYLPREDNISOLONE 40 MG INJ CPT-4: J1030 03/13/2014 TRIAMCINOLONE ACET INJ NOS CPT-4: J3301 03/13/2014 THER/PROPH/DIAG INJ SC/IM CPT-4: 98549 02/19/2014 VITAMIN B12 INJECTION CPT-4: J3420 02/19/2014 THER/PROPH/DIAG INJ SC/IM CPT-4: 48652 11/28/2012 METHYLPREDNISOLONE 40 MG INJ CPT-4: J1030 11/28/2012 TRIAMCINOLONE ACET INJ NOS CPT-4: J3301 11/28/2012 URINALYSIS NONAUTO W/O SCOPE CPT-4: 44721 09/13/2011 URINE TEST CPT-4: 31478 09/13/2011 URINALYSIS NONAUTO W/O SCOPE CPT-4: 78148 08/10/2009 Vital Signs Date Vital 08/12/2019 Blood Pressure 1: 116/80 Code: 8480-6 BMI: 28.4 Code: 94412-9 Heart Rate 1: 92 bpm Height: 5'9" Respiratory Rate: 20 bpm SpO2: 96% Tempera ture: 36.2 (C) / 97.1 (F) Weight: 192 lbs 12/11/2018 Blood Pressure 1: 114/70 Code: 8480-6 BMI: 29.2 Code: 49865-8 Heart Rate 1: 92 bpm Height: 5'9" Respiratory Rate: 20 bpm SpO2: 98% Tempera ture: 36.9 (C) / 98.4 (F) Weight: 198 lbs 08/14/2018 Blood Pressure 1: 118/78 Code: 8480-6 Heart Rate 1: 80 bpm Respiratory Rate: 16 bpm SpO2: 98% Temperature: 36.9 (C) / 98.4 (F) We ight: 198 lbs 06/28/2018 Blood Pressure 1: 108/88 Code: 8480-6 Heart Rate 1: 84 bpm Respiratory Rate: 22 bpm SpO2: 98% Temperature: 36.9 (C) / 98.4 (F) We ight: 198 lbs 04/23/2018 Blood Pressure 1: 126/82 Code: 8480-6 BMI: 28.6 Code: 47478-5 Heart Rate 1: 100 bpm Height: 5'9" Respiratory Rate: 18 bpm SpO2: 98% Tempera ture: 37.4 (C) / 99.4 (F) Weight: 194 lbs 09/26/2016 Blood Pressure 1: 118/76 Code: 8480-6 Heart Rate 1: 86 bpm Respiratory Rate: 20 bpm SpO2: 96% Temperature: 36.1 (C) / 96.9 (F) We ight: 194 lbs 07/25/2016 Blood Pressure 1: 108/78 Code: 8480-6 Heart Rate 1: 98 bpm Respiratory Rate: 20 bpm SpO2: 97% Temperature: 36.6 (C) / 97.8 (F) We ight: 195 lbs 04/20/2016 Blood Pressure 1: 124/78 Code: 8480-6 Heart Rate 1: 92 bpm Respiratory Rate: 20 bpm Temperature: 36.9 (C) / 98.5 (F) Weight: 199 lbs 02/28/2016 Blood Pressure 1: 132/78 Code: 8480-6 Heart Rate 1: 84 bpm Respiratory Rate: 20 bpm SpO2: 98% Temperature: 36.4 (C) / 97.6 (F) We ight: 196 lbs 12/21/2015 Blood Pressure 1: 112/78 Code: 8480-6 BMI: 28.2 Code: 98828-4 Heart Rate 1: 76 bpm Height: 5'9" Respiratory Rate: 20 bpm Temperature: 36 .7 (C) / 98.1 (F) Weight: 191 lbs 09/27/2015 Heart Rate 1: 76 bpm Respiratory Rate: 20 bpm Te mperature: 36.9 (C) / 98.5 (F) Weight: 187 lbs 08/26/2015 Blood Pressure 1: 126/80 Code: 8480-6 Heart Rate 1: 92 bpm Height: 5'9" Respiratory Rate: 22 bpm SpO2: 98% Temperature: 37.1 (C) / 98.8 (F) Weight: 07/27/2015 Blood Pressure 1: 114/78 Code: 8480-6 BMI: 27.0 Code: 41771-7 Heart Rate 1: 76 bpm Height: 5'10" Respiratory Rate: 20 bpm Temperature: 36 .8 (C) / 98.2 (F) Weight: 188 lbs 06/08/2015 Blood Pressure 1: 132/80 Code: 8480-6 Heart Rate 1: 88 bpm Height: 5'10" Respiratory Rate: 20 bpm Temperature: 36.6 (C) / 97.9 (F) We ight: 05/13/2015 Blood Pressure 1: 104/70 Code: 8480-6 BMI: 26.3 Code: 92860-5 Heart Rate 1: 112 bpm Height: 5'10" Respiratory Rate: 20 bpm Temperature: 36 .9 (C) / 98.5 (F) Weight: 183 lbs 05/06/2015 Blood Pressure 1: 112/68 Code: 8480-6 art Rate 1: 70 bpm 05/05/2015 Blood Pressure 1: 136/78 Code: 8480-6 BMI: 35.7 Code: 65556-3 Heart Rate 1: 116 bpm Height: 5' Respiratory Rate: 20 bpm Temperature: 36 .6 (C) / 97.8 (F) Weight: 183 lbs 03/29/2015 Blood Pressure 1: 108/62 Code: 8480-6 BMI: 26.8 Code: 41531-0 Heart Rate 1: 78 bpm Height: 5'10" Respiratory Rate: 22 bpm Temperature: 36 .6 (C) / 97.9 (F) Weight: 187 lbs 02/18/2015 Blood Pressure 1: 126/70 Code: 8480-6 BMI: 25.3 Code: 63150-7 Heart Rate 1: 92 bpm Height: 5'10" Respiratory Rate: 20 bpm Temperature: 37 .2 (C) / 99.0 (F) Weight: 176 lbs 02/10/2015 Blood Pressure 1: 134/86 Code: 8480-6 BMI: 25.3 Code: 78790-9 Heart Rate 1: 108 bpm Height: 5'10" Respiratory Rate: 20 bpm Temperature: 37 .7 (C) / 99.9 (F) Weight: 176 lbs 02/04/2015 Blood Pressure 1: 126/78 Code: 8480-6 Heart Rate 1: 104 bpm Respiratory Rate: 20 bpm Temperature: 36.7 (C) / 98.1 (F) Weight: 176 lbs 12/30/2014 Blood Pressure 1: 110/68 Code: 8480-6 BMI: 25.7 Code: 45942-0 Heart Rate 1: 72 bpm Height: 5'10" Respiratory Rate: 18 bpm Temperature: 36 .2 (C) / 97.1 (F) Weight: 179 lbs 11/09/2014 Blood Pressure 1: 112/78 Code: 8480-6 BMI: 25.7 Code: 34452-5 Heart Rate 1: 92 bpm Height: 5'9" Respiratory Rate: 20 bpm Temperature: 36 .6 (C) / 97.9 (F) Weight: 174 lbs 10/07/2014 Blood Pressure 1: 118/78 Code: 8480-6 BMI: 26.6 Code: 07661-9 Heart Rate 1: 108 bpm Height: 5'9" Respiratory Rate: 20 bpm Temperature: 36 .6 (C) / 97.8 (F) Weight: 180 lbs 10/01/2014 Blood Pressure 1: 138/88 Code: 8480-6 BMI: 26.6 Code: 17350-1 Heart Rate 1: 98 bpm Height: 5'9" Respiratory Rate: 22 bpm Temperature: 36 .4 (C) / 97.6 (F) Weight: 180 lbs 09/22/2014 Blood Pressure 1: 110/74 Code: 8480-6 BMI: 25.8 Code: 71450-2 Heart Rate 1: 94 bpm Height: 5'10" Respiratory Rate: 18 bpm Temperature: 36 .7 (C) / 98.1 (F) Weight: 180 lbs 09/16/2014 Blood Pressure 1: 126/80 Code: 8480-6 Heart Rate 1: 96 bpm Height: Respiratory Rate: 20 bpm Temperature: 36.8 (C) / 98.2 (F) Weight: 06/12/2014 Blood Pressure 1: 110/64 Code: 8480-6 BMI: 25.8 Code: 96162-4 Heart Rate 1: 84 bpm Height: 5'10" Respiratory Rate: 22 bpm Temperature: 36 .6 (C) / 97.8 (F) Weight: 180 lbs 03/13/2014 Blood Pressure 1: 112/ Code: 8480-6 BMI: 26.9 Code: 31017-4 Heart Rate 1: 76 bpm Height: 5'8" Respiratory Rate: 20 bpm Temperature: 36 .7 (C) / 98.0 (F) Weight: 177 lbs 02/19/2014 Blood Pressure 1: 112 Code: 8480-6 BMI: 26.9 Code: 51777-2 Heart Rate 1: 76 bpm Height: 5'8" Respiratory Rate: 20 bpm Temperature: 36 .7 (C) / 98.1 (F) Weight: 177 lbs 09/25/2013 Blood Pressure 1: 10270 Code: 8480-6 Heart Rate 1: 72 bpm Respiratory Rate: 20 bpm Temperature: 36.7 (C) / 98.1 (F) Weight: 169 lbs 08/08/2013 Blood Pressure 1: 126/80 Code: 8480-6 Heart Rate 1: 80 bpm Respiratory Rate: 20 bpm Temperature: 36.7 (C) / 98.1 (F) Weight: 174 lbs 12/26/2012 Blood Pressure 1: 135/86 Code: 8480-6 BMI: 24.3 Code: 05904-6 Heart Rate 1: 96 bpm Height: 5'8" Respiratory Rate: 20 bpm Temperature: 36 .7 (C) / 98.1 (F) Weight: 160 lbs 11/28/2012 Blood Pressure 1: 124/70 Code: 8480-6 BMI: 24.2 Code: 21506-6 Heart Rate 1: 92 bpm Height: 5'8" Respiratory Rate: 20 bpm Temperature: 36 .4 (C) / 97.6 (F) Weight: 159 lbs 05/21/2012 Blood Pressure 1: 100/64 Code: 8480-6 BMI: 26.6 Code: 39674-3 Heart Rate 1: 68 bpm Height: 5'8" Temperature: 37.2 (C) / 99.0 (F) Weight: 175 lbs 09/13/2011 Blood Pressure 1: 106/64 Code: 8480-6 BMI: 25.5 Code: 67867-3 Heart Rate 1: 74 bpm Height: 5'8" Temperature: 36.6 (C) / 97.8 (F) Weight: 168 lbs 11/29/2010 Blood Pressure 1: 110/58 Code: 8480-6 BMI: 25.7 Code: 14741-5 Heart Rate 1: 74 bpm Height: 5'8" Temperature: 36.8 (C) / 98.2 (F) Weight: 169 lbs 08/10/2009 Blood Pressure 1: 118/64 Code: 8480-6 BMI: 24.8 Code: 81176-2 Heart Rate 1: 80 bpm Height: 5'9" Temperature: 36.7 (C) / 98.1 (F) Weight: 168 lbs Functional Status No Functional Status data Reason For Visit Reason For Visit Effective Dates Notes chest congestion 08/12/2019 Patient diagnosed wi th influenza on 08/01/18 and started on Tamiflu 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 She states they intermittently largen and start at the anterior clavicu lar level and descend down to both breast. They come and go and are tender paresthesia 12/21/2015 neck pain 09/27/2015 Discuss need for rep eat MRI follow up 08/26/2015 1 month- Patient has stopped Physical Therapy mole check 07/27/2015 follow up 06/08/2015 follow up 05/13/2015 blood pressure check 05/06/2015 follow up 05/05/2015 2wk fwup skin lesion 03/29/2015 follow up 02/18/2015 follow up 02/10/2015 Discuss MRI brain paresthesia 02/04/2015 frequent urination 02/02/2015 follow up 12/30/2014 [facility] ER on 12/16/14 follow up 11/09/2014 follow up 10/07/2014 Discuss recent MRI pain, limb 10/01/2014 follow up 09/22/2014 seen last week for m uscle tightness of left arm. Radiating pain from shoulder to finger tips. Pain comes and goes. But when there is an episode they last about two hours. Is always worse when laying down. Is very bad when first arising in the am. But after up for awhild it does improve. neck and arm pain 09/16/2014 skin lesion 06/12/2014 injection(s) 03/18/2014 b12 shot sinusitis 03/13/2014 vomiting from PND paresthesia 02/19/2014 headache 09/25/2013 vs Migraine rash 08/08/2013 Restarted phentermin e rash 12/26/2012 sore throat 11/28/2012 fatigue 05/21/2012 pelvic pain 09/13/2011 unbearable cramping abdominal pain 11/29/2010 abdominal pain 08/10/2009 Left side pain Encounters Encounter Performer Location Codes Date ([id number]) OFFICE/OUTPATIENT VISIT EST Diagnosis: Chest wall pain[ICD10: R07.89] Diagnosis: Costochondritis, acute[ICD10: M94.0] Diagnosis: Tear of right retina without detachment[ICD10: H33.301] Tiara MORALES [facility] CPT-4: 96047 08/12/2019 ([id number]) OFFICE/OUTPATIENT VISIT EST Diagnosis: Spontaneous ecchymoses[ICD10: R23.3] Diagnosis: Other fatigue[ICD10: R53.83] Tiara MORALES [facility] CPT-4: 64815 12/11/2018 ([id number]) OFFICE/OUTPATIENT VISIT EST Diagnosis: Left upper quadrant pain[ICD10: R10.12] Tiara MORALES [facility] CPT-4: 81744 08/14/2018 ([id number]) OFFICE/OUTPATIENT VISIT EST Diagnosis: Acute sinusitis, unspecified[ICD10: J01.90] Gabrielle MORALES DO [facility] CPT-4: 96716 06/28/2018 ([id number]) NURSE/OUTPATIENT VISIT EST Diagnosis: SCREENING-PULMONARY TB[ICD10: Z11.1] Tiara MORALES DO [facility] CPT-4: 25263 05/10/2018 ([id number]) NURSE/OUTPATIENT VISIT EST Diagnosis: SCREENING-PULMONARY TB[ICD10: Z11.1] Tiara MORALES DO [facility] CPT-4: 52344 05/08/2018 ([id number]) PREV VISIT EST AGE 18-39 Diagnosis: Encounter for general adult medical examination without abnormal findings[ICD10: Z00.00] Diagnosis: Left upper quadrant pain[ICD10: R10.12] Tiara MORALES DO [facility] CPT-4: 74858 04/23/2018 ([id number]) OFFICE/OUTPATIENT VISIT EST Diagnosis: Dysuria[ICD10: R30.0] Tiara MORALES DO [facility] CPT-4: 57181 10/25/2016 ([id number]) OFFICE/OUTPATIENT VISIT EST Diagnosis: Left upper quadrant pain[ICD10: R10.12] Tiara MORALES DO [facility] CPT-4: 67450 09/26/2016 ([id number]) OFFICE/OUTPATIENT VISIT EST Diagnosis: Urinary tract infection, site not specified[ICD10: N39.0] Tiara MORALES DO [facility] CPT-4: 66094 07/25/2016 ([id number]) OFFICE/OUTPATIENT VISIT EST Diagnosis: Deficiency of other specified B group vitamins[ICD10: E53.8] Diagnosis: Polyneuropathy, unspecified[ICD10: G62.9] Diagnosis: Other lack of coordination[ICD10: R27.8] Tiara MORALES DO [facility] CPT-4: 10330 04/20/2016 ([id number]) OFFICE/OUTPATIENT VISIT EST Diagnosis: Generalized enlarged lymph nodes[ICD10: R59.1] Diagnosis: Dysuria[ICD10: R30.0] Ashleylucio TALAVERALINE Jenna MORALES DO [facility] CPT-4: 38531 02/28/2016 ([id number]) OFFICE/OUTPATIENT VISIT EST Diagnosis: Polyneuropathy, unspecified[ICD10: G62.9] Tiara TALAVERALINE DevanLauren MARIIA CLEMONS [facility] CPT-4: 57437 12/21/2015 OFFICE/OUTPATIENT VISIT EST Diagnosis: Radiculopathy, cervical region[ICD10: M54.12] Diagnosis: Neuralgia and neuritis, unspecified[ICD10: M79.2] Elizabeth MORALES DO [facility] CPT-4: 64303 09/27/2015 OFFICE/OUTPATIENT VISIT EST Diagnosis: Other cervical disc displacement, 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] Diagnosis: Radiculopathy, cervical region[ICD10: M54.12] Diagnosis: Generalized anxiety disorder[ICD10: F41.1] Tiara Geraspencer TIARA DevanLauren [facility]II[facility] CPT-4: 13197 08/26/2015 ([id number]) OFFICE/OUTPATIENT VISIT EST Diagnosis: Melanocytic nevi, unspecified[ICD10: D22.9] Diagnosis: Acute stress reaction[ICD10: F43.0] Tiara SULTANA DevanLauren [facility] CPT-4: 00120 07/27/2015 ([id number]) OFFICE/OUTPATIENT VISIT EST Diagnosis: Vitamin D deficiency, unspecified[ICD10: E55.9] Diagnosis: Polyneuropathy, unspecified[ICD10: G62.9] Tiara VELARDE DevanLauren [facility] CPT-4: 74253 06/08/2015 OFFICE/OUTPATIENT VISIT EST Diagnosis: Mononeuropathy, 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] Diagnosis: Cervicalgia[ICD10: M54.2] Tiara VELARDE DevanLauren GERA WIL[facility] CPT-4: 16380 05/13/2015 OFFICE/OUTPATIENT VISIT EST Diagnosis: Other cervical disc displacement, 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] Diagnosis: Intervertebral disc disorders with myelopathy, 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] [facility] CPT-4: 19104 05/05/2015 OFFICE/OUTPATIENT VISIT EST Diagnosis: Insect bite (nonvenomous) of breast, right breast, initial encounter[ICD10: S20.161A] Elizabeth AmbroseKassandramu MORALES [facility] CPT-4: 71691 03/29/2015 ([id number]) OFFICE/OUTPATIENT VISIT EST Diagnosis: DISTURBANCE OF SKIN SENSATION (Paresthesia)[ICD9: 782.0] Diagnosis: MUSCLE WEAKNESS-GENERAL[ICD9: 728.87] Tiara [facility] CPT-4: 12620 02/18/2015 ([id number]) OFFICE/OUTPATIENT VISIT EST Diagnosis: URINARY TRACT INFECTION[ICD9: 599.0] Diagnosis: DISTURBANCE OF SKIN SENSATION (Paresthesia)[ICD9: 782.0] Tiara [facility] CPT-4: 00805 02/10/2015 ([id number]) OFFICE/OUTPATIENT VISIT EST Diagnosis: DISTURBANCE OF SKIN SENSATION (Paresthesia)[ICD9: 782.0] Diagnosis: SCIATICA[ICD9: 724.3] Diagnosis: URINARY TRACT INFECTION[ICD9: 599.0] Diagnosis: CEPHALGIA[ICD9: 784.0] Tiara VERGARA [facility] CPT-4: 18518 02/04/2015 ([id number]) OFFICE/OUTPATIENT VISIT EST Diagnosis: HEMATURIA NOS[ICD9: 599.70] Tiara Bossrexshane TALAVERATIARA Jenna Mcdowell [facility] CPT-4: 58148 02/02/2015 OFFICE/OUTPATIENT VISIT EST Diagnosis: SCIATICA[ICD9: 724.3] Diagnosis: ANXIETY STATE NOS[ICD9: 300.00] Diagnosis: ABNORMAL WEIGHT GAIN[ICD9: 783.1] Elizabeth AmbroseKassandradebirosio ALICIA [facility] CPT-4: 38820 12/30/2014 ([id number]) OFFICE/OUTPATIENT VISIT EST Diagnosis: S/P cervical spinal fusion[ICD9: V45.4] Diagnosis: SCIATICA[ICD9: 724.3] Diagnosis: ANXIETY STATE NOS[ICD9: 300.00] Tiara Gerarexshane JACOBSTIARA DevanLauren MARIIA [facility] CPT-4: 83504 11/09/2014 ([id number]) OFFICE/OUTPATIENT VISIT EST Diagnosis: Degenerative disc disease, cervical[ICD9: 722.4] Diagnosis: Herniated disc, cervical[ICD9: 722.0] Diagnosis: Radiculopathy of arm[ICD9: 723.4] Tiara Krishnanshane JACOBSALICIAMARVIN MORALES DO [facility] CPT-4: 88960 10/07/2014 ([id number]) OFFICE/OUTPATIENT VISIT EST Diagnosis: CERVICALGIA[ICD9: 723.1] Diagnosis: Trapezius muscle spasm[ICD9: 728.85] Diagnosis: Radiculopathy of arm[ICD9: 723.4] Elizabeth AmbroseEvelina VARGAS Julius HartmanLauren [facility]IIA [facility] CPT-4: 76446 10/01/2014 ([id number]) OFFICE/OUTPATIENT VISIT EST Diagnosis: SCIATICA[ICD9: 724.3] Diagnosis: Radiculopathy of arm[ICD9: 723.4] Tiara Geraspencer VARGAS Julius HartmanLauren [facility]II[facility] CPT-4: 03070 09/22/2014 ([id number]) OFFICE/OUTPATIENT VISIT EST Diagnosis: Shoulder pain, acute[ICD9: 719.41] Diagnosis: Arm paresthesia, left[ICD9: 782.0] Diagnosis: CERVICALGIA[ICD9: 723.1] Elizabeth AmbroseEvelina VELARDE DevanLauren [facility] CPT-4: 19712 09/16/2014 OFFICE/OUTPATIENT VISIT EST Diagnosis: Ingrown hair[ICD9: 704.8] Diagnosis: KELOID SCAR[ICD9: 701.4] Elizabeth AmbroseEvelina VELARDE DevanLauren [facility] CPT-4: 36482 06/12/2014 ([id number]) OFFICE/OUTPATIENT VISIT EST Diagnosis: B12 deficiency[ICD9: 266.2] Tiara ARVIZU [facility] CPT-4: 10997 03/18/2014 OFFICE/OUTPATIENT VISIT EST Diagnosis: SINUSITIS, ACUTE[ICD9: 461.9] Alannah VELARDE DevanLauren [facility] CPT-4: 22827 03/13/2014 ([id number]) OFFICE/OUTPATIENT VISIT EST Diagnosis: Numbness and tingling[ICD9: 782.0] Diagnosis: Lateral epicondylitis[ICD9: 726.32] Diagnosis: B12 deficiency[ICD9: 266.2] Tiara ARVIZU [facility] CPT-4: 45036 02/19/2014 ([id number]) OFFICE/OUTPATIENT VISIT EST Diagnosis: MIGRAINE NOS/NOT INTRCBL[ICD9: 346.90] Diagnosis: Numbness and tingling[ICD9: 782.0] Tiara West [facility]ER[facility]ER [facility] CPT-4: 13047 09/25/2013 OFFICE/OUTPATIENT VISIT EST Diagnosis: Contact dermatitis and eczema[ICD9: 692.9] Diagnosis: ABNORMAL WEIGHT GAIN[ICD9: 783.1] Elizabeth West [facility]ER[facility] CPT-4: 80293 08/08/2013 OFFICE/OUTPATIENT VISIT EST Diagnosis: Rash[ICD9: 782.1] Diagnosis: Numbness and tingling[ICD9: 782.0] Reta West [facility] CPT-4: 26149 12/26/2012 ([id number]) OFFICE/OUTPATIENT VISIT EST Diagnosis: ALLERGIC RHINITIS[ICD9: 477.9] Diagnosis: SINUSITIS, ACUTE[ICD9: 461.9] Tiara [facility]ES [facility] CPT-4: 94493 11/28/2012 OFFICE/OUTPATIENT VISIT EST Diagnosis: SINUSITIS, ACUTE[ICD9: 461.9] Diagnosis: FEBRILE ILLNESS[ICD9: 780.60] Tiara [facility] CPT-4: 14754 05/21/2012 OFFICE/OUTPATIENT VISIT EST Diagnosis: ABDOMINAL PAIN[ICD9: 789.00] Diagnosis: Menstrual cramps[ICD9: 625.3] Reta [facility] CPT-4: 53628 09/13/2011 OFFICE/OUTPATIENT VISIT EST Tiara WILSON [facility] CPT- 4: 87192 11/29/2010 ([id number]) OFFICE/OUTPATIENT VISIT, EST Tiara MORALES DO [facility] CPT-4: 31686 08/10/2009 Plan of Care Planned Activity Notes Codes Status Date Visit Diagnosis Plan: Chest wall pain Discussion: Cont inue ibuprofen at 600mg po TID Stop prednisone Continue doxycycline ICD-9 : 786.52 ICD-10 : R07.89 08/12/2019 Visit Diagnosis Plan: Spontaneous ecchymoses Discussio n: CBC normal Has restarted phentermine so will monitor and see if bruises return BP and pulse check 1 week after restarting phentermine ICD-9 : 782.7 ICD-10 : R23.3 12/11/2018 Appointment: Tiara Morales WPtel: [address] [place] [address] FOLLOW UP 12/11/2018 Visit Diagnosis Plan: Left upper quadrant pain Discuss ion: Patient has had an extensive workup including Lab, CT scan of abdomen/pelvis, EGD with no etiology for pain. Recommend proceed with colonoscopy due to her history of Celiac disease and ongoing pain Did discuss that could be endometriosis implanted on the colon as well with that known history ICD-9 : 789.02 ICD-10 : R10.12 08/14/2018 Appointment: Tiara Morales WPtel: [address] [place] [address] ACUTE ILLNESS 08/14/2018 Care Plan: Referral Order SNOMED-CT : [id number] Pending 08/14/2018 Care Plan: A1C HPLC LOINC : 52004-4 Pending 08/14/2018 Visit Diagnosis Plan: Acute sinusitis, unspecified Dis cussion: due to length of symptoms, patient started on augmentin and prednisone. instructed to take probiotics or yogurt to help prevent gi upset or yeast infection. call or rtc with new or worsening symptoms or if continues past antibiotics. ICD-9 : 461.9 ICD-10 : J01.90 06/28/2018 Appointment: Gabrielle Carter [address] [place] [address] ACUTE ILLNESS 06/28/2018 Patient Education: prednisone- [employer] Coupon [phone] [email or web address] Completed 06/28/2018 Appointment: Tiara Morales WPtel: [address] [place], [place] [phone] US TB Test read 05/10/2018 Appointment: Tiara Morales WPtel: [address] [place], [place] [phone] US TB Test 05/08/2018 Visit Diagnosis Plan: Encounter for [facility] adult medical examination without abnormal findings Discussion: Foster care form filled out Will return next week for TB test ICD-9 : V70.9 ICD-10 : Z00.00 04/23/2018 Visit Diagnosis Plan: Left upper quadrant pain Discuss ion: Has had full lab workup, CXR, Abdominal US and EGD and has CT scan of abdomen/pelvis tomorrow Discussed Xifaxin trial pending CT scan results Also discussed Colonoscopy if pain persists after xifaxin therapy ICD-9 : 789.02 ICD-10 : R10.12 04/23/2018 Appointment: Tiara Morales WPtel: [address] [place] [address] [place] PHYSICAL 04/23/2018 Appointment: Tiara Morales WPtel: [address] [place], [place] [phone] [place] UA 10/25/2016 Patient Education: Patient Medication Summary Completed 10/25/2016 Appointment: Tiara Morales WPtel: [address] [place], [place] [phone] [place] 10/16 canceled `sl, patient in hospital per Dr Mcdowell (km) CANCELED 10/17/2016 Patient Education: Patient Medication Summary Completed 10/03/2016 Care Plan: CT ABDOMEN W/O DYE LOINC : 36 103-0 Pending 10/03/2016 Appointment: Tiara Morales WPtel: [address] [place], [place] [phone] [place] 09/25 rescheduled~sl RESCHEDULED 10/02/2016 Visit Diagnosis Plan: Left upper quadrant pain Discuss ion: Pepcid 20 mg PO BID Hold on CT scan of abdomen until fwup Diet: GERD diet Follow Up: 2 weeks ICD-9 : 789.02 ICD-10 : R10.12 09/26/2016 Appointment: Tiara Morales WPtel: [address] [place], [place] [phone] [place] FOLLOW UP 09/26/2016 Patient Education: Patient Medication Summary Completed 09/26/2016 Appointment: Tiara Morales WPtel: [address] [place], [place] [phone] [place] CANCELED 09/11/2016 Appointment: Tiara Morales WPtel: [address] [place], [place] [phone] [place] 08/10 lm `sl 08/14 canceled feeling better~sl CANCE LED 08/14/2016 Visit Diagnosis Plan: Urinary tract infection, site no t specified Discussion: Stop Augmentin Hydrate See urology Large blood in urine likely from menses ICD-9 : 599.0 ICD-10 : N39.0 07/25/2016 Appointment: Tiara Morales WPtel: [address] [place], [place] [phone] [place] 07/24 confirmed`sl ACUTE ILLNESS 07/25/2016 Patient Education: Patient Medication Summary Completed 07/25/2016 Appointment: Tiara Morales WPtel: [address] [place], [place] [phone] [place] 06/20 confirmed~sl 06/20 Canceled~sl CANCELED 06/21/2016 Referral: Katie Elliott WPtel: [facility] [address] [id number] [place] Referral Appointment Completed 06/06/2016 Patient Education: Patient Medication Summary Completed 04/21/2016 Care Plan: A1C HPLC LOINC : 46518-9 Pending 04/21/2016 Visit Plan: Needs to go back to neurolog y Check TSH, Free T4, B12, iron, CMP, Vit D 04/20/2016 Appointment: Tiara Morales WPtel: [address] [place] [address] ACUTE ILLNESS 04/20/2016 Patient Education: Patient Medication Summary Completed 04/20/2016 Patient Education: Patient Medication Summary Completed 03/09/2016 Care Plan: US EXAM CHEST Soft Tissue LOINC : 61356-3 Pending 03/09/2016 Appointment: Tiara Morales WPtel: [address] [place] [address] [place] 02/28 was able to be seen sooner~sl RESCHEDULED 03/01/2016 Visit Plan: Office dip is wnl, no cultur e sent CBC today to look for infectious process If negative, can consider soft tissue US Would order mammogram/breast US as well but she is having free mammo at work in the next 1-2 weeks 02/28/2016 Appointment: Ashley Olivo [address] [place] [address] ACUTE ILLNESS 02/28/2016 Patient Education: Patient Medication Summary Completed 02/28/2016 Appointment: Tiara Morales WPtel: [address] [place] [address] [place] RESCHEDULED 01/24/2016 Visit Plan: Patient had EMG on right arm and leg in May 2015 at [facility] and was negative Has not seen neurologist since 2nd neck surgery Add low dose lyrica at bedtime 50mg q HS 12/21/2015 Appointment: Tiara Morales WPtel: [address] [place] [address] 12/19 confirmed ~sl ACUTE ILLNESS 12/21/2015 Patient Education: Patient Medication Summary Completed 12/21/2015 Patient Education: Lyrica - 18+ - No [place] Completed 12/21/2015 Appointment: Tiara Morales WPtel: [address] [place] [address] 10/19 confirmed~sl...canceled, something unavaoidable came up.~lb CANCELED 10/21/2015 Visit Plan: Proceed with MRI of cervical /thoracic w/wo contrast. Has plans to follow-up with her surgeon in [place], [place] 09/27/2015 Appointment: Elizabeth Mccarthy WPtel: [address] [place] [address] ACUTE ILLNESS 09/27/2015 Patient Education: Patient Medication Summary Completed 09/27/2015 Care Plan: MRI NECK SPINE W/O DYE LOINC : 80058-8 Pending 09/27/2015 Care Plan: MRI CHEST SPINE W/O DYE LOINC : 68121-8 Pending 09/27/2015 Visit Plan: Increase cymbalta to 60mg da xiao Discussed updated MRI or EMG due to ongoing left arm numbness 08/26/2015 Appointment: Tiara Morales WPtel: [address] [place] [address] 08/24 confirmed ~sl FOLLOW UP 08/26/2015 Patient Education: Patient Medication Summary Completed 08/26/2015 Patient Education: [facility] - Saving AutoInj - Cymbalta - 18-64 - Dynamic Portal ID Completed 08/26/2015 Visit Plan: Discussed establishing with Dermatology to remove moles and monitor skin lesions Trial of cymbalta 30mg daily for both depression and pain/neuropathy Going to counselor 07/27/2015 Appointment: Tiara Morales WPtel: [address] [place], [place] [address] 07/13 this was origanally a 1mth FWUP for 07/13 but patient couldn't make appt that day and rescheduled at 8:18am for a mole removal on 07/27 instead~lb OFFICE SURGERY 07/27/2015 Patient Education: Patient Medication Summary Completed 07/27/2015 Patient Education: [facility] - Saving AutoInj - Cymbalta - 18-64 - Dynamic Portal ID Completed 07/27/2015 Visit Plan: Found low Vit D Had negative EMG of upper and lower extremities Gralise 300mg q HS for 9 days then 600mg q HS Start PT 06/08/2015 Appointment: Tiara Morales WPtel: [address] [place], [place] [phone] 06/08 lm ~sl FOLLOW UP 06/08/2015 Patient Education: Patient Medication Summary Completed 06/08/2015 Visit Plan: Patient going to [facility] this weekend and go to walk-in clinic and try to get seen Suggested rheumatology and neurology as main foci and evaluations Using flexeril prn 05/13/2015 Appointment: Tiara Morales WPtel: [address] [place] [address] ACUTE ILLNESS 05/13/2015 Patient Education: Patient Medication Summary Completed 05/13/2015 Appointment: Tiara Morales WPtel: [address] [place] [address] BP CHECK 05/06/2015 Patient Education: Patient Medication Summary Completed 05/06/2015 Visit Plan: Proceed with evaluation at [facility] for complete workup due to 2 cervical spinal compressions within 6mos as well as neuropathy, cephalgia--suspect connective tissue disease etiology or metabolic bone process 05/05/2015 Appointment: Tiara Morales WPtel: [address] [place] [address] 05/04/15 appt confirmed cn FOLLOW UP 05/05 Patient Education: Patient Medication Summary Completed 05/05/2015 Visit Plan: Warm moist heat to area twic e daily Apply Mupirocin 2% oint. to area bid 03/29/2015 Appointment: Elizabeth Mccarthy WPtel: [address] [place], [place] [phone] ACUTE ILLNESS 03/29/2015 Patient Education: Patient Medication Summary Completed 03/29/2015 Visit Plan: Check lab and proceed with E MGs of upper and lower extremities Check CBC, CMP, TSH, free T4, B12, ESR, CRP, SHERYL Increase gabapentin to 600mg q HS Starting PT as well 02/18/2015 Appointment: Tiara Morales WPtel: [address] [place], [place] [phone] 02/17/15 confirmed FOLLOW UP 02/18/2015 Patient Education: Patient Medication Summary Completed 02/18/2015 Patient Education: Patient Medication Summary Completed 02/15/2015 Visit Plan: Sees neurology tomorrow Will proceed with labwork and EMGs MRI results reviewed Finish abx Continue gabapentin 02/10/2015 Appointment: Tiara Morales WPtel: [address] [place], [place] [phone] FOLLOW UP 02/10/2015 Patient Education: Patient Medication Summary Completed 02/10/2015 Visit Plan: Finish abx Start Neurontin 3 00mg q HS Proceed with EMGS of UE and LEs--patient scheduled to see neurology next week Recheck 3-4weeks pending neurology evaluation 02/04/2015 Appointment: Tiara Morales WPtel: [address] [place], [place] [phone] 02/02/15 appt confirmed cn FOLLOW UP 02/04 Patient Education: Patient Medication Summary Completed 02/04/2015 Appointment: Tiara Morales WPtel: [address] [place], [place] [phone] [facility] 02/02/2015 Patient Education: Patient Medication Summary Completed 02/02/2015 Appointment: Elizabeth Mccarthy WPtel: [address] [place], [place] [phone] FOLLOW UP 01/13/2015 Visit Plan: restart Zoloft 1/2 tablet x 7 days then 1 tablet daily Currently doing Physical Therapy for low back pain. Appt. with ortho on 01/07/15 Hold on restarting Phentermine until stable on Zoloft 12/30/2014 Appointment: Elizabeth Mccarthy WPtel: [address] [place], [place] [phone] 12/29/2014 VM-roman...12/29 appt confirmed cn FOLLO W UP 12/30/2014 Patient Education: Patient Medication Summary Completed 12/30/2014 Patient Education: Patient Medication Summary Completed 12/16/2014 Appointment: Tiara Morales WPtel: [address] [place], [place] [phone] 12/03 vm cn 12/07 NO Show cn...called atr 215 to return call left thrusday and i explained missed appt she apologized she did not remember she did not want to reschedule at this time cn FOLLOW UP 12/07/2014 Visit Plan: MRI of L/S spine at 6weeks p ost-op if okay with surgeon [employer] Going to counselor Trial zoloft 50mg q HS At least 1500mg calcium a day from diet/supplement and 2000u Vit D 11/09/2014 Appointment: Tiara Morales WPtel: [address] [place], [place] [phone] 11/06 confirmed -mf FOLLOW UP 11/09/2014 Patient Education: Patient Medication Summary Completed 11/09/2014 Visit Plan: MRI results discussed Procee d with neurosurgery evaluation Hydrocodone 7.5/325mg 1 po q 4hrs prn pain--#100 10/07/2014 Appointment: Tiara Morales WPtel: [address] [place], [place] [phone] [place] FOLLOW UP 10/07/2014 Patient Education: Patient Medication Summary Completed 10/07/2014 Referral: Bart Nava WPtel: [facility] [address] [id number] Referral Initiated 10/06/2014 Appointment: Elizabeth Mccarthy WPtel: [address] [place], [place] [phone] ACUTE ILLNESS 10/01/2014 Patient Education: Patient Medication Summary Completed 10/01/2014 Visit Plan: PT for neck and thoracic Add Zorvolex 18mg po TID Continue flexeril 10mg q HS 09/22/2014 Appointment: Tiara Morales WPtel: [address] [place], [place] [phone] FOLLOW UP 09/22/2014 Patient Education: Patient Medication Summary Completed 09/22/2014 Appointment: Tiara Morales WPtel: [address] [place], [place] [phone] ACUTE ILLNESS 09/16/2014 Appointment: Elizabeth Mccarthy WPtel: [address] [place], [place] [phone] [place] WORK IN 09/16/2014 Patient Education: Patient Medication Summary Completed 09/16/2014 Appointment: Elizabeth Mccarthy WPtel: [address] [place], [place] [phone] ACUTE ILLNESS 06/12/2014 Patient Education: Patient Medication Summary Completed 06/12/2014 Appointment: Tiara Morales WPtel: [address] [place] [address] INJECTION 03/18/2014 Patient Education: Patient Medication Summary Completed 03/18/2014 Appointment: Alannah Fink WPtel: [address] [place] [address] ACUTE ILLNESS 03/13/2014 Patient Education: Patient Medication Summary Completed 03/13/2014 Appointment: Tiara Morales WPtel: [address] [place] [address] FOLLOW UP 03/05/2014 Appointment: Tiara Morales WPtel: [address] [place], [place] [phone] 02/18 ACUTE ILLNESS 02/19/2014 Patient Education: Patient Medication Summary Completed 02/19/2014 Visit Plan: Add topamax Use excedrin sam colleen prn Start B12 sublingual 2500mcg daily 09/25/2013 Appointment: Tiara Morales WPtel: [address] [place] [address] ACUTE ILLNESS 09/25/2013 Patient Education: Patient Medication Summary Completed 09/25/2013 Appointment: Elizabeth Mccarthy WPtel: [address] [place], [place] [phone] ACUTE ILLNESS 08/08/2013 Patient Education: Patient Medication Summary Completed 08/08/2013 Visit Plan: Reports rash was present on knees. Has photo of redness/ irregular shaped rash on bilateral knees that appears to have since cleared. Reports that has been red and only mildly itchy for the last two weeks. Reports that had some finger numbness. Recent blood work reportedly performed at [facility] to evaluate for MS, mineral deficiency, etc in the spring for parasthesia. Will consider nerve conduction study if symptoms persist. 12/26/2012 Appointment: Reta Vines WPtel: [address] [place], [place] [phone] ACUTE ILLNESS 12/26/2012 Patient Education: Patient Medication Summary Completed 12/26/2012 Appointment: Tiara Morales WPtel: [address] [place], [place] [phone] 11/27 left message ACUTE ILLNESS 11/28/2012 Patient Education: Patient Medication Summary Completed 11/28/2012 Visit Plan: reports that she was given s `teroid injections by Dr. Dietrich on Sunday the . Pt. reports that bilateral foot pain is much improved and almost completely resolved. Pt. will start Septra DS and notify if symptoms worsen or persist. Continue Ibuprofen of Aleve for symptoms/fever. 05/21/2012 Appointment: Reta Vines WPtel: [address] [place], [place] [phone] ACUTE ILLNESS 05/21/2012 Patient Education: Patient Medication Summary Completed 05/21/2012 Appointment: Tiara Morales WPtel: [address] [place], [place] [phone] 04/11 message with patient That needs to rescedule patient physical appt on 04/16 patient was walking dog she will call to reschedule appt PHYSICAL 04/16/2012 Appointment: Reta Vines WPtel: [address] [place], [place] [phone] ACUTE ILLNESS 09/13/2011 Patient Education: Patient Medication Summary Completed 09/13/2011 Visit Plan: pt. reports that she has eat ten gluten free diet. Will do lab workup. CBC, CMP, h. pylori, lipase, amylase and sed rate. and ciliac panel. Pt. reports that she uses [facility]. Discussed that patient will get lab draw on Sunday. (Pt. reports fear of blood draw) Pt. is aware that her results must go through [facility] and this will delay her results. Pt. will seek evaluation sooner if symptoms worsen. May try possible GERD treatment such us Protonix etc if symptoms persist and labs are normal. 11/29/2010 Appointment: Reta Vines WPtel: [address] [place] [address] ACUTE ILLNESS 11/29/2010 Patient Education: Patient Medication Summary Completed 11/29/2010 Appointment: Reta Vines WPtel: [address] [place] [address] ACUTE ILLNESS 08/10/2009 Patient Education: Patient Medication Summary Completed 08/10/2009 Appointment: Tiara Morales WPtel: [address] [place] [address] ACUTE ILLNESS 08/09/2009 Referral: Jaquan Simon WPtel: [address] [place] [address] [id number] [place] Referral Initiated Referral: Chuck Fermin WPtel: [address] [place] [address] [address] [place] [address] [place] Referral Completed Referral: Katie Elliott WPtel: [facility] [address] [id number] [place] Referral Completed Instructions Comment . Needs to go back to neurology Check TSH, Free T4, B12, iron, CMP, Vit D . Office dip is wnl, no culture sent CBC today to look for infectious process If negative, can consider soft tissue US Would order mammogram/breast US as well but she is having free mammo at work in the next 1-2 weeks . Patient had EMG on right arm and leg i n May 2015 at [facility] and was negative Has not seen neurologist since 2nd neck surgery Add low dose lyrica at bedtime 50mg q HS . Proceed with MRI of cervical/thoracic w/wo contrast. Has plans to follow-up with her surgeon in [place], [place] . Increase cymbalta to 60mg daily Discussed updated MRI or EMG due to ongoing left arm numbness . Discussed establishing with Dermatolog y to remove moles and monitor skin lesions Trial of cymbalta 30mg daily for both depression and pain/neuropathy Going to counselor . Found low Vit D Had negative EMG of upper and lower extremities Gralise 300mg q HS for 9 days then 600mg q HS Start PT . Patient going to [facility] this week end and go to walk-in clinic and try to get seen Suggested rheumatology and neurology as main foci and evaluations Using flexeril prn . Proceed with evaluation at [facility] for co mplete workup due to 2 cervical spinal compressions within 6mos as well as neuropathy, cephalgia--suspect connective tissue disease etiology or metabolic bone process . Warm moist heat to area twice daily Apply Mupirocin 2% oint. to area bid . Check lab and proceed with EMGs of upp er and lower extremities Check CBC, CMP, TSH, free T4, B12, ESR, CRP, SHERYL Increase gabapentin to 600mg q HS Starting PT as well . Sees neurology tomorrow Will proceed with labwork and EMGs MRI results reviewed Finish abx Continue gabapentin . Finish abx Start Neurontin 300mg q HS Proceed with EMGS of UE and LEs--patient scheduled to see neurology next week Recheck 3-4weeks pending neurology evaluation Had started Zoloft and stopped it after 2 weeks b/c mother -in-law told her she didn't need it. Advised to restart 1/2 tab for one week then one tab daily. Do not stop taking medication without consulting PCP. . restart Zoloft 1/2 tablet x 7 days the n 1 tablet daily Currently doing Physical Therapy for low back pain. Appt. with ortho on 01/07/15 Hold on restarting Phentermine until stable on Zoloft . MRI of L/S spine at 6weeks post-op if okay with surgeon Stress Reducers Going to counselor Trial zoloft 50mg q HS At least 1500mg calcium a day from diet/supplement and 2000u Vit D . MRI results discussed Proceed with neurosurgery evaluation Hydrocodone 7.5/325mg 1 po q 4hrs prn pain--#100 . PT for neck and thoracic Add Zorvolex 18mg po TID Continue flexeril 10mg q HS . Add topamax Use excedrin migraine prn Start B12 sublingual 2500mcg daily . Reports rash was present on knees. Andrade s photo of redness/ irregular shaped rash on bilateral knees that appears to have since cleared. Reports that has been red and only mildly itchy for the last two weeks. Reports that had some finger numbness. Recent blood work reportedly performed at [facility] to evaluate for MS, mineral deficiency, etc in the spring for parasthesia. Will consider nerve conduction study if symptoms persist. . reports that she was given s`teroid in jections by Dr. Dietrich on Sunday the . Pt. reports that bilateral foot pain is much improved and almost completely resolved. Pt. will start Septra DS and notify if symptoms worsen or persist. Continue Ibuprofen of Aleve for symptoms/fever. . pt. reports that she has eatten gluten free diet. Will do lab workup. CBC, CMP, h. pylori, lipase, amylase and sed rate. and ciliac panel. Pt. reports that she uses [facility]. Discussed that patient will get lab draw on Sunday. (Pt. reports fear of blood draw) Pt. is aware that her results must go through [facility] and this will delay her results. Pt. will seek evaluation sooner if symptoms worsen. May try possible GERD treatment such us Protonix etc if symptoms persist and labs are normal. Medical Equipment No Medical Equipment data Health Concerns Section Health Concerns data not found Goals Section Goals data not found Interventions Section Interventions data not found Health Status Evaluations/Outcomes Section Health Status Evaluations/Outcomes data not found Advance Directives No Advance Directive data
--- OUTSIDE RECORDS SUMMARY | 2019-08-19 01:15 | XMS REPORT | CCD ---
Author Author Venecia Morales D.O. Organization TIARA MORALES DO [facility] Address [address] [place] [address] Phone Care Team Providers Care It Help Desk Associate Name Role Phone Tiara Morales D.O., PP Unavailable CCM Unavailable Summary Purpose Interface Exchange Insurance Providers Payer name Policy type / Coverage type Covered republican ID Effective Begin Date Effective End Date [employer] Commercial Insurance [id number] 2019 Unknown Family history Mother Diagnosis Age At Onset Heart disease Unknown Father Diagnosis Age At Onset Heart disease Unknown Social History Social History Element Codes Description Effective Dates Tobacco history SNOMED CT: 070500831 Nonsmoker 12/14/2010 Marital status Unknown Single 08/10/2009 [...] Instructions Augmentin 875 mg-125 mg tablet RxNorm: 808790 1 Tablet(s) PO BID 07/07/2018 Inactive prednisone 20 mg tablet RxNorm: 608696 2 Tablet(s) PO QD 06/28/2018 0 07/02/2018 Inactive Macrobid 100 mg capsule RxNorm: 212405 1 Capsule(s) PO BID 10/27/19 17 10/25/2016 Inactive fluconazole 100 mg tablet RxNorm: 710067 1 Tablet(s) PO QD 10/27/19 17 11/01/2016 Inactive Macrobid 100 mg capsule RxNorm: 445936 1 Capsule(s) PO BID 10/27/19 17 11/01/2016 Inactive fluconazole 100 mg tablet RxNorm: 621493 1 Tablet(s) PO QD 10/27/19 17 10/25/2016 Inactive Pepcid 20 mg tablet RxNorm: 221408 1 Tablet(s) PO BID 09/26/201604/04 Inactive cyanocobalamin (vit B-12) 1,000 mcg/mL injection solution Rx Norm: 529083 1 Milliliter(s) Inj every 2 weeks for 3 months 04/21/2016 04/22/2018 [place] ctive cyanocobalamin (vit B-12) 1,000 mcg/mL injection solution Rx Norm: 515908 1 Milliliter(s) Inj every 2 weeks for 3 months 04/21/2016 04/20/2016 [place] [facility] Bactrim DS 800 mg-160 mg tablet RxNorm: 334705 1 Tablet(s) PO BID 0 01/24/2016 01/23/2016 Inactive Bactrim DS 800 mg-160 mg tablet RxNorm: 746150 1 Tablet(s) PO BID 0 01/24/2016 01/30/2016 Inactive Cymbalta 60 mg capsule,delayed release RxNorm: 192380 1 Capsule (s) PO QD 01/11/2016 04/19/2016 Inactive Lyrica 50 mg capsule RxNorm: 567349 1 Capsule(s) PO QHS 12/21/2015 Inactive cyclobenzaprine 10 mg tablet RxNorm: 971741 1 Tablet(s) PO TID as needed for muscle spasm 09/27/2015 12/20/2015 Inactive Medrol (Mane) 4 mg tablets in a dose pack RxNorm: 850521 Tablet(s) PO As Directed 09/27/2015 12/20/2015 Inactive Cymbalta 60 mg capsule,delayed release RxNorm: 088064 1 Capsule (s) PO QD 08/26/2015 10/24/2015 Inactive Cymbalta 30 mg capsule,delayed release RxNorm: 575824 1 Capsule (s) PO QAM 07/27/2015 08/25/2015 Inactive cyclobenzaprine 10 mg tablet RxNorm: 605205 1 Tablet(s) PO Q8H as needed for muscle spasm 05/05/2015 06/07/2015 Inactive mupirocin 2 % topical ointment RxNorm: 331980 TOP 03/29/2015 1 07/05/2014 Inactive gabapentin 600 mg tablet RxNorm: 210271 1 Tablet(s) PO QHS 02/19/20 15 05/04/2015 Inactive Cipro 500 mg tablet RxNorm: 623059 1 Tablet(s) PO BID 02/02/201501/04 Inactive Cipro 500 mg tablet RxNorm: 436151 1 Tablet(s) PO BID 02/02/2015 0912/2014 Inactive Zoloft 50 mg tablet RxNorm: 660182 1 Tablet(s) PO QHS f or 1 week then increase to 1 po q HS 01/21/2015 05/04/2015 Inactive Zoloft 50 mg tablet RxNorm: 750072 1/2 Tablet(s) PO QHS for 1 week then increase to 1 po q HS 11/09/2014 01/06/2015 Inactive hydrocodone 5 mg-acetaminophen 325 mg tablet RxNorm: 602443 1 T ablet(s) PO 10/01/2014 05/04/2015 Inactive Zorvolex 18 mg capsule RxNorm: 8863387 1 Capsule(s) PO TID 09/23/1910/06/2014 Inactive Medrol (Mane) 4 mg tablets in a dose pack RxNorm: 855398 Tablet(s) P O 09/16/2014 09/21/2014 Inactive Flexeril 10mg tablet RxNorm: 1 Tablet(s) PO Q8H 09/16/2014 5 Inactive Cyanacobalamin 1,000 mcg/mL injection solution RxNorm: 52406 4 1 Milliliter(s) Inj every 2 weeks 03/05/2014 10/06/2014 Inactive Mobic 15 mg tablet RxNorm: 257805 1 Tablet(s) PO QD 02/19/20142013 Inactive Septra DS 800 mg-160 mg tablet RxNorm: 824837 1 Tablet(s) PO BI D antibiotic 10/23/2013 11/05/2013 Inactive Topamax 50 mg tablet RxNorm: 163636 1 Tablet(s) PO QHS 09/25/2013 Inactive phentermine 37.5 mg capsule RxNorm: 936355 1 Capsule(s) PO QD 08/0809/06/2013 Inactive Zithromax 250 mg tablet RxNorm: 822797 2 Tablet(s) PO QD 11/28/2012 0 12/04/2012 Inactive prednisone 20 mg tablet RxNorm: 169502 1 Tablet(s) PO BID 11/28/2012 12/04/2012 Inactive Septra DS 800 mg-160 mg tablet RxNorm: 612608 1 Tablet( s) PO BID take one tablet twice daily. antibiotic 05/21/2012 06/03/2012 Inactive Lo Loestrin Fe 1 mg-10 mcg (24)/10 mcg (2) Tab RxNorm: 91683 84 1 Tablet(s) PO QD 09/13/2011 09/21/2014 Inactive Ultram 50 mg tablet RxNorm: 796520 1 Tablet(s) PO Q4H as needed for pain No Start Date 09/30/2014 Inactive Prilosec OTC 20 mg tablet,delayed release RxNorm: 528050 1 Tabl et(s) PO QD No Start Date 06/27/2018 Inactive paroxetine 30 mg tablet RxNorm: 5275264 1 Tablet(s) PO QD No Start Date 06/27/2018 Inactive Valium 5 mg tablet RxNorm: 612431 1 Tablet(s) PO QHS No Start Date Inactive Medrol (Mane) 4 mg tablets in a dose pack RxNorm: 798823 Tablet(s) PO As Directed No Start Date 09/26/2015 Inactive cyclobenzaprine 10 mg tablet RxNorm: 024271 1 Tablet(s) PO TID as needed for muscle spasm No Start Date 09/26/2015 Inactive Robaxin 750 mg tablet RxNorm: 872267 1 Tablet(s) PO Q4H as needed for muscle spasm No Start Date 12/29/2014 Inactive phentermine 30 mg capsule RxNorm: 211917 1 Capsule(s) PO QAM No Sta rt Date 02/18/2014 Inactive Cyanacobalamin 1,000 mcg/mL injection solution RxNorm: 35775 4 1 Milliliter(s) Inj every 2 weeks No Start Date 03/04/2014 Inactive cyclobenzaprine 10 mg tablet RxNorm: 821826 1 Tablet(s) PO Q8H as needed for muscle spasm No Start Date 05/04/2015 Inactive hydrocodone 5 mg-acetaminophen 325 mg tablet RxNorm: 342216 1 Tablet(s) PO as needed for pain No Start Date 04/19/2016 Inactive Vitamin D3 2,000 unit tablet RxNorm: 659439 1 Tablet(s) PO QD No St art Date 04/22/2018 Inactive hydrocodone 10 mg-acetaminophen 325 mg tablet RxNorm: 116452 1 Tablet(s) PO Q4H as needed for pain No Start Date 06/07/2015 Inactive Medication Administered No Medication Administered data Immunizations No Immunization data Results No Results data Procedures Procedure Codes Date TB INTRADERMAL TEST CPT-4: 14953 05/08/2018 URINALYSIS NONAUTO W/O SCOPE CPT-4: 17061 10/25/2016 URINE CULTURE/ COLONY COUNT CPT-4: 53768 10/25/2016 URINALYSIS NONAUTO W/O SCOPE CPT-4: 66099 07/25/2016 URINALYSIS NONAUTO W/O SCOPE CPT-4: 51034 02/28/2016 URINE CULTURE/ COLONY COUNT CPT-4: 25204 02/18/2015 URINALYSIS NONAUTO W/O SCOPE CPT-4: 60323 02/02/2015 URINE CULTURE/ COLONY COUNT CPT-4: 65734 02/02/2015 THER/PROPH/DIAG INJ SC/IM CPT-4: 39878 03/13/2014 METHYLPREDNISOLONE 40 MG INJ CPT-4: J1030 03/13/2014 TRIAMCINOLONE ACET INJ NOS CPT-4: J3301 03/13/2014 THER/PROPH/DIAG INJ SC/IM CPT-4: 19568 02/19/2014 VITAMIN B12 INJECTION CPT-4: J3420 02/19/2014 THER/PROPH/DIAG INJ SC/IM CPT-4: 02195 11/28/2012 METHYLPREDNISOLONE 40 MG INJ CPT-4: J1030 11/28/2012 TRIAMCINOLONE ACET INJ NOS CPT-4: J3301 11/28/2012 URINALYSIS NONAUTO W/O SCOPE CPT-4: 74912 09/13/2011 URINE TEST CPT-4: 31947 09/13/2011 URINALYSIS NONAUTO W/O SCOPE CPT-4: 52157 08/10/2009 Vital Signs Date Vital 08/12/2019 Blood Pressure 1: 116/80 Code: 8480-6 BMI: 28.4 Code: 49129-0 Heart Rate 1: 92 bpm Height: 5'9" Respiratory Rate: 20 bpm SpO2: 96% Tempera ture: 36.2 (C) / 97.1 (F) Weight: 192 lbs 12/11/2018 Blood Pressure 1: 114/70 Code: 8480-6 BMI: 29.2 Code: 10512-7 Heart Rate 1: 92 bpm Height: 5'9" [...] 1: 126/82 Code: 8480-6 BMI: 28.6 Code: 05339-3 Heart Rate 1: 100 bpm Height: 5'9" [...] 1: 112/78 Code: 8480-6 BMI: 28.2 Code: 98131-8 Heart Rate 1: 76 bpm Height: 5'9" [...] 1: 114/78 Code: 8480-6 BMI: 27.0 Code: 90083-0 Heart Rate 1: 76 bpm Height: 5'10" Respiratory Rate: 20 bpm Temperature: 36 .8 (C) / 98.2 (F) Weight: 188 lbs 06/08/2015 Blood Pressure 1: 132/80 Code: 8480-6 Heart Rate 1: 88 bpm Height: 5'10" Respiratory Rate: 20 bpm Temperature: 36.6 (C) / 97.9 (F) We ight: 05/13/2015 Blood Pressure 1: 104/70 Code: 8480-6 BMI: 26.3 Code: 28940-2 Heart Rate 1: 112 bpm Height: 5'10" Respiratory Rate: 20 bpm Temperature: 36 .9 (C) / 98.5 (F) Weight: 183 lbs 05/06/2015 Blood Pressure 1: 112/68 Code: 8480-6 art Rate 1: 70 bpm 05/05/2015 Blood Pressure 1: 136/78 Code: 8480-6 BMI: 35.7 Code: 68000-7 Heart Rate 1: 116 bpm Height: 5' Respiratory Rate: 20 bpm Temperature: 36 .6 (C) / 97.8 (F) Weight: 183 lbs 03/29/2015 Blood Pressure 1: 108/62 Code: 8480-6 BMI: 26.8 Code: 89811-8 Heart Rate 1: 78 bpm Height: 5'10" Respiratory Rate: 22 bpm Temperature: 36 .6 (C) / 97.9 (F) Weight: 187 lbs 02/18/2015 Blood Pressure 1: 126/70 Code: 8480-6 BMI: 25.3 Code: 50361-4 Heart Rate 1: 92 bpm Height: 5'10" Respiratory Rate: 20 bpm Temperature: 37 .2 (C) / 99.0 (F) Weight: 176 lbs 02/10/2015 Blood Pressure 1: 134/86 Code: 8480-6 BMI: 25.3 Code: 26212-8 Heart Rate 1: 108 bpm Height: 5'10" Respiratory Rate: 20 bpm Temperature: 37 .7 (C) / 99.9 (F) Weight: 176 lbs 02/04/2015 Blood Pressure 1: 126/78 Code: 8480-6 Heart Rate 1: 104 bpm Respiratory Rate: 20 bpm Temperature: 36.7 (C) / 98.1 (F) Weight: 176 lbs 12/30/2014 Blood Pressure 1: 110/68 Code: 8480-6 BMI: 25.7 Code: 54061-4 Heart Rate 1: 72 bpm Height: 5'10" Respiratory Rate: 18 bpm Temperature: 36 .2 (C) / 97.1 (F) Weight: 179 lbs 11/09/2014 Blood Pressure 1: 112/78 Code: 8480-6 BMI: 25.7 Code: 33767-3 Heart Rate 1: 92 bpm Height: 5'9" Respiratory Rate: 20 bpm Temperature: 36 .6 (C) / 97.9 (F) Weight: 174 lbs 10/07/2014 Blood Pressure 1: 118/78 Code: 8480-6 BMI: 26.6 Code: 83249-0 Heart Rate 1: 108 bpm Height: 5'9" Respiratory Rate: 20 bpm Temperature: 36 .6 (C) / 97.8 (F) Weight: 180 lbs 10/01/2014 Blood Pressure 1: 138/88 Code: 8480-6 BMI: 26.6 Code: 18671-9 Heart Rate 1: 98 bpm Height: 5'9" Respiratory Rate: 22 bpm Temperature: 36 .4 (C) / 97.6 (F) Weight: 180 lbs 09/22/2014 Blood Pressure 1: 110/74 Code: 8480-6 BMI: 25.8 Code: 09081-1 Heart Rate 1: 94 bpm Height: 5'10" Respiratory Rate: 18 bpm Temperature: 36 .7 (C) / 98.1 (F) Weight: 180 lbs 09/16/2014 Blood Pressure 1: 126/80 Code: 8480-6 Heart Rate 1: 96 bpm Height: Respiratory Rate: 20 bpm Temperature: 36.8 (C) / 98.2 (F) Weight: 06/12/2014 Blood Pressure 1: 110/64 Code: 8480-6 BMI: 25.8 Code: 42609-5 Heart Rate 1: 84 bpm Height: 5'10" Respiratory Rate: 22 bpm Temperature: 36 .6 (C) / 97.8 (F) Weight: 180 lbs 03/13/2014 Blood Pressure 1: 112/ Code: 8480-6 BMI: 26.9 Code: 53167-7 Heart Rate 1: 76 bpm Height: 5'8" Respiratory Rate: 20 bpm Temperature: 36 .7 (C) / 98.0 (F) Weight: 177 lbs 02/19/2014 Blood Pressure 1: 112 Code: 8480-6 BMI: 26.9 Code: 44847-1 Heart Rate 1: 76 bpm Height: 5'8" [...] 1: 135/86 Code: 8480-6 BMI: 24.3 Code: 96371-3 Heart Rate 1: 96 bpm Height: 5'8" Respiratory Rate: 20 bpm Temperature: 36 .7 (C) / 98.1 (F) Weight: 160 lbs 11/28/2012 Blood Pressure 1: 124/70 Code: 8480-6 BMI: 24.2 Code: 41992-1 Heart Rate 1: 92 bpm Height: 5'8" Respiratory Rate: 20 bpm Temperature: 36 .4 (C) / 97.6 (F) Weight: 159 lbs 05/21/2012 Blood Pressure 1: 100/64 Code: 8480-6 BMI: 26.6 Code: 55676-4 Heart Rate 1: 68 bpm Height: 5'8" Temperature: 37.2 (C) / 99.0 (F) Weight: 175 lbs 09/13/2011 Blood Pressure 1: 106/64 Code: 8480-6 BMI: 25.5 Code: 70431-1 Heart Rate 1: 74 bpm Height: 5'8" Temperature: 36.6 (C) / 97.8 (F) Weight: 168 lbs 11/29/2010 Blood Pressure 1: 110/58 Code: 8480-6 BMI: 25.7 Code: 93839-6 Heart Rate 1: 74 bpm Height: 5'8" Temperature: 36.8 (C) / 98.2 (F) Weight: 169 lbs 08/10/2009 Blood Pressure 1: 118/64 Code: 8480-6 BMI: 24.8 Code: 22486-6 Heart Rate 1: 80 bpm Height: 5'9" [...] Care 1 month ago and diagnosed with Alexander follow up 07/25/2016 Recurrent- intereste d in [...] pain Encounters Encounter Performer Location Codes Date ([id number]) OFFICE/OUTPATIENT VISIT EST Diagnosis: Chest wall pain[ICD10: R07.89] Diagnosis: Costochondritis, acute[ICD10: M94.0] Diagnosis: Tear of right retina without detachment[ICD10: H33.301] Tiara MORALES re[facility]ounces CPT-4: 70706 08/12/2019 ([id number]) OFFICE/OUTPATIENT VISIT EST Diagnosis: Spontaneous ecchymoses[ICD10: R23.3] Diagnosis: Other fatigue[ICD10: R53.83] Tiara MORALES [facility] CPT-4: 25302 12/11/2018 ([id number]) OFFICE/OUTPATIENT VISIT EST Diagnosis: Left upper quadrant pain[ICD10: R10.12] Tiara MORALES re[facility] CPT-4: 74943 08/14/2018 ([id number]) OFFICE/OUTPATIENT VISIT EST Diagnosis: Acute sinusitis, unspecified[ICD10: J01.90] Gabrielle MORALES DO [facility] CPT-4: 62491 06/28/2018 ([id number]) NURSE/OUTPATIENT VISIT EST Diagnosis: SCREENING-PULMONARY TB[ICD10: Z11.1] Tiara MORALES DO [facility] CPT-4: 49778 05/10/2018 ([id number]) NURSE/OUTPATIENT VISIT EST Diagnosis: SCREENING-PULMONARY TB[ICD10: Z11.1] Tiara MORALES DO [facility] CPT-4: 68608 05/08/2018 ([id number]) PREV VISIT EST AGE 18-39 Diagnosis: Encounter for general adult medical examination without abnormal findings[ICD10: Z00.00] Diagnosis: Left upper quadrant pain[ICD10: R10.12] Tiaar MORALES DO [facility] CPT-4: 32787 04/23/2018 ([id number]) OFFICE/OUTPATIENT VISIT EST Diagnosis: Dysuria[ICD10: R30.0] Tiara MORALES DO [facility] CPT-4: 80301 10/25/2016 ([id number]) OFFICE/OUTPATIENT VISIT EST Diagnosis: Left upper quadrant pain[ICD10: R10.12] Tiara MORALES DO [facility] CPT-4: 89204 09/26/2016 ([id number]) OFFICE/OUTPATIENT VISIT EST Diagnosis: Urinary tract infection, site not specified[ICD10: N39.0] Tiara MORALES DO [facility] CPT-4: 65511 07/25/2016 ([id number]) OFFICE/OUTPATIENT VISIT EST Diagnosis: Deficiency of other specified B group vitamins[ICD10: E53.8] Diagnosis: Polyneuropathy, unspecified[ICD10: G62.9] Diagnosis: Other lack of coordination[ICD10: R27.8] Tiara MORALES DO [facility] CPT-4: 01463 04/20/2016 ([id number]) OFFICE/OUTPATIENT VISIT EST Diagnosis: Generalized enlarged lymph nodes[ICD10: R59.1] Diagnosis: Dysuria[ICD10: R30.0] Ashleylucio TALAVERALINE Jenna MORALES DO [facility] CPT-4: 05058 02/28/2016 ([id number]) OFFICE/OUTPATIENT VISIT EST Diagnosis: Polyneuropathy, unspecified[ICD10: G62.9] Tiara TALAVERALINE DevnaLauren MARIIA CLEMONS [facility] CPT-4: 57820 12/21/2015 OFFICE/OUTPATIENT VISIT EST Diagnosis: Radiculopathy, cervical region[ICD10: M54.12] Diagnosis: Neuralgia and neuritis, unspecified[ICD10: M79.2] Elizabeth MORALES DO [facility] CPT-4: 57009 09/27/2015 OFFICE/OUTPATIENT VISIT EST Diagnosis: Other cervical disc displacement, 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 CPT-4: 55820 08/26/2015 ([id number]) OFFICE/OUTPATIENT VISIT EST Diagnosis: Melanocytic nevi, unspecified[ICD10: D22.9] Diagnosis: Acute stress reaction[ICD10: F43.0] Tiara SULTANA DevanLauren [facility] CPT-4: 05387 07/27/2015 ([id number]) OFFICE/OUTPATIENT VISIT EST Diagnosis: Vitamin D deficiency, unspecified[ICD10: E55.9] Diagnosis: Polyneuropathy, unspecified[ICD10: G62.9] Tiara VELARDE DevanLauren [facility] CPT-4: 13250 06/08/2015 OFFICE/OUTPATIENT VISIT EST Diagnosis: Mononeuropathy, 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] Diagnosis: Cervicalgia[ICD10: M54.2] Tiara VELARDE DevanLauren 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 CPT-4: 07668 03/29/2015 ([id number]) OFFICE/OUTPATIENT VISIT EST Diagnosis: DISTURBANCE OF SKIN SENSATION (Paresthesia)[ICD9: 782.0] Diagnosis: MUSCLE WEAKNESS-GENERAL[ICD9: 728.87] Tiara [facility]OR[facility]ES [facility] CPT-4: 79774 02/18/2015 ([id number]) OFFICE/OUTPATIENT VISIT EST Diagnosis: URINARY TRACT INFECTION[ICD9: 599.0] Diagnosis: DISTURBANCE OF SKIN SENSATION (Paresthesia)[ICD9: 782.0] [facility]: 87209 02/10/2015 ([id number]) OFFICE/OUTPATIENT VISIT EST Diagnosis: DISTURBANCE OF SKIN SENSATION (Paresthesia)[ICD9: 782.0] Diagnosis: SCIATICA[ICD9: 724.3] Diagnosis: URINARY TRACT INFECTION[ICD9: 599.0] Diagnosis: CEPHALGIA[ICD9: 784.0] Tiara [facility] CPT-4: 16756 02/04/2015 ([id number]) OFFICE/OUTPATIENT VISIT EST Diagnosis: HEMATURIA NOS[ICD9: 599.70] Tiara Bossrexshane TALAVERATIARA Jenna Mcdowell [facility] CPT-4: 90269 02/02/2015 OFFICE/OUTPATIENT VISIT EST Diagnosis: SCIATICA[ICD9: 724.3] Diagnosis: ANXIETY STATE NOS[ICD9: 300.00] Diagnosis: ABNORMAL WEIGHT GAIN[ICD9: 783.1] Elizabeth AmbroseKassandradebirosio ALICIA [facility]OR[facility]ES [facility] CPT-4: 10211 12/30/2014 ([id number]) OFFICE/OUTPATIENT VISIT EST Diagnosis: S/P cervical spinal fusion[ICD9: V45.4] Diagnosis: SCIATICA[ICD9: 724.3] Diagnosis: ANXIETY STATE NOS[ICD9: 300.00] Tiara Gerarexshane JACOBSTIARA DevanLauren [facility] CPT-4: 06439 11/09/2014 ([id number]) OFFICE/OUTPATIENT VISIT EST Diagnosis: Degenerative disc disease, cervical[ICD9: 722.4] Diagnosis: Herniated disc, cervical[ICD9: 722.0] Diagnosis: Radiculopathy of arm[ICD9: 723.4] Tiara Krishnanshane JACOBSALICIAMARVIN MORALES DO [facility] CPT-4: 25260 10/07/2014 ([id number]) OFFICE/OUTPATIENT VISIT EST Diagnosis: CERVICALGIA[ICD9: 723.1] Diagnosis: Trapezius muscle spasm[ICD9: 728.85] Diagnosis: Radiculopathy of arm[ICD9: 723.4] Elizabeth AmbroseEvelina VARGAS Julius HartmanLauren [facility] CPT-4: 83127 10/01/2014 ([id number]) OFFICE/OUTPATIENT VISIT EST Diagnosis: SCIATICA[ICD9: 724.3] Diagnosis: Radiculopathy of arm[ICD9: 723.4] Tiara Geraspencer VARGAS Julius HartmanLauren 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 CPT-4: 90321 03/18/2014 OFFICE/OUTPATIENT VISIT EST Diagnosis: SINUSITIS, ACUTE[ICD9: 461.9] Alannah VELARDE [facility]Lau[facility]: 39655 03/13/2014 ([id number]) OFFICE/OUTPATIENT VISIT EST Diagnosis: Numbness and tingling[ICD9: 782.0] Diagnosis: Lateral epicondylitis[ICD9: 726.32] Diagnosis: B12 deficiency[ICD9: 266.2] Tiara [facility] CPT-4: 11936 02/19/2014 ([id number]) OFFICE/OUTPATIENT VISIT EST Diagnosis: MIGRAINE NOS/NOT INTRCBL[ICD9: 346.90] Diagnosis: Numbness and tingling[ICD9: 782.0] Tiara West [facility] CPT-4: 66803 09/25/2013 OFFICE/OUTPATIENT VISIT EST Diagnosis: Contact dermatitis and eczema[ICD9: 692.9] Diagnosis: ABNORMAL WEIGHT GAIN[ICD9: 783.1] Elizabeth West [facility] CPT-4: 26438 08/08/2013 OFFICE/OUTPATIENT VISIT EST Diagnosis: Rash[ICD9: 782.1] Diagnosis: Numbness and tingling[ICD9: 782.0] Reta West [facility] CPT-4: 83360 12/26/2012 ([id number]) OFFICE/OUTPATIENT VISIT EST Diagnosis: ALLERGIC RHINITIS[ICD9: 477.9] Diagnosis: SINUSITIS, ACUTE[ICD9: 461.9] Tiara [facility]ORALES [facility] CPT-4: 69044 11/28/2012 OFFICE/OUTPATIENT VISIT EST Diagnosis: SINUSITIS, ACUTE[ICD9: 461.9] Diagnosis: FEBRILE ILLNESS[ICD9: 780.60] Tiara [facility]ORALES [facility] CPT-4: 21290 05/21/2012 OFFICE/OUTPATIENT VISIT EST Diagnosis: ABDOMINAL PAIN[ICD9: 789.00] Diagnosis: Menstrual cramps[ICD9: 625.3] Reta MORALES [facility] CPT-4: 22322 09/13/2011 OFFICE/OUTPATIENT VISIT EST Tiara [facility] CPT- 4: 93514 11/29/2010 ([id number]) OFFICE/OUTPATIENT VISIT, EST Tiara MORALES DO [facility] CPT-4: 34318 08/10/2009 Plan of Care Planned Activity Notes [...] : R23.3 12/11/2018 Appointment: Tiara Morales WPtel: [address] [place] [address] FOLLOW UP 12/11/2018 Visit Diagnosis Plan: Left [...] : R10.12 08/14/2018 Appointment: Tiara Morales WPtel: [address] [place] [address] ACUTE ILLNESS 08/14/2018 Care Plan: Referral Order SNOMED-CT : [id number] Pending 08/14/2018 Care Plan: A1C HPLC LOINC : 23944-1 Pending 08/14/2018 Visit Diagnosis Plan: Acute sinusitis, unspecified Dis cussion: due to length of symptoms, patient started on augmentin and prednisone. instructed to take probiotics or yogurt to help prevent gi upset or yeast infection. call or rtc with new or worsening symptoms or if continues past antibiotics. ICD-9 : 461.9 ICD-10 : J01.90 06/28/2018 Appointment: Gabrielle Carter [address] [place] [address] ACUTE ILLNESS 06/28/2018 Patient Education: prednisone- [employer] Coupon [id number] [email or web address] Completed 06/28/2018 Appointment: Tiara Morales WPtel: [address] [place], [place] [phone] US TB Test read 05/10/2018 Appointment: Tiara Morales WPtel: [address] [place] [address] US TB Test 05/08/2018 Visit Diagnosis Plan: Left upper quadrant pain Discuss ion: Has had full lab workup, CXR, Abdominal US and EGD and has CT scan of abdomen/pelvis tomorrow Discussed Xifaxin trial pending CT scan results Also discussed Colonoscopy if pain persists after xifaxin therapy ICD-9 : 789.02 ICD-10 : R10.12 04/23/2018 Visit Diagnosis Plan: Encounter for [facility] medical examination without abnormal findings Discussion: Foster care form filled out Will return next week for TB test ICD-9 : V70.9 ICD-10 : Z00.00 04/23/2018 Appointment: Tiara Morales WPtel: [address] [place] [address] [place] PHYSICAL 04/23/2018 Appointment: Tiara Morales WPtel: [address] [place], [place] [phone] [place] UA 10/25/2016 Patient Education: Patient Medication Summary Completed 10/25/2016 Appointment: Tiara Morales WPtel: [address] [place], [place] [phone] [place] 10/16 canceled `sl, patient in hospital per Dr Mcdowell (km) CANCELED 10/17/2016 Patient Education: Patient Medication Summary Completed 10/03/2016 Care Plan: CT ABDOMEN W/O DYE LOINC : 36 103-0 Pending 10/03/2016 Appointment: Tiara Morales WPtel: [address] [place], [place] [phone] [place] 09/25 rescheduled~sl RESCHEDULED 10/02/2016 Visit Diagnosis Plan: Left upper quadrant pain Discuss ion: Pepcid 20 mg PO BID Hold on CT scan of abdomen until fwup Diet: GERD diet Follow Up: 2 weeks ICD-9 : 789.02 ICD-10 : R10.12 09/26/2016 Appointment: Tiara Morales WPtel: [address] [place], [place] [phone] [place] FOLLOW UP 09/26/2016 Patient Education: Patient Medication Summary Completed 09/26/2016 Appointment: Tiara Morales WPtel: [address] [place], [place] [phone] [place] CANCELED 09/11/2016 Appointment: Tiara Morales WPtel: [address] [place], [place] [phone] [place] 08/10 lm `sl 08/14 canceled feeling better~sl CANCE LED 08/14/2016 Visit Diagnosis Plan: Urinary tract infection, site no t specified Discussion: Stop Augmentin Hydrate See urology Large blood in urine likely from menses ICD-9 : 599.0 ICD-10 : N39.0 07/25/2016 Appointment: Tiara Morales WPtel: [address] [place], [place] [phone] [place] 07/24 confirmed`sl ACUTE ILLNESS 07/25/2016 Patient Education: Patient Medication Summary Completed 07/25/2016 Appointment: Tiara Morales WPtel: [address] [place], [place] [phone] [place] 06/20 confirmed~sl 06/20 Canceled~sl CANCELED 06/21/2016 Referral: Katie Elliott WPtel: [facility] [address] [id number] [place] Referral Appointment Completed 06/06/2016 Patient Education: Patient Medication Summary Completed 04/21/2016 Care Plan: A1C HPLC LOINC : 21530-7 Pending 04/21/2016 Visit Plan: Needs to go back to neurolog y Check TSH, Free T4, B12, iron, CMP, Vit D 04/20/2016 Appointment: Tiara Morales WPtel: [address] [place] [address] ACUTE ILLNESS 04/20/2016 Patient Education: Patient Medication Summary Completed 04/20/2016 Patient Education: Patient Medication Summary Completed 03/09/2016 Care Plan: US EXAM CHEST Soft Tissue LOINC : 20903-3 Pending 03/09/2016 Appointment: Tiara Morales WPtel: [address] [place] [address] [place] 02/28 was able to be seen sooner~sl RESCHEDULED 03/01/2016 Visit Plan: Office dip is wnl, no cultur e sent CBC today to look for infectious process If negative, can consider soft tissue US Would order mammogram/breast US as well but she is having free mammo at work in the next 1-2 weeks 02/28/2016 Appointment: Ashley Olivo [address] [place] [address] ACUTE ILLNESS 02/28/2016 Patient Education: Patient Medication Summary Completed 02/28/2016 Appointment: Tiara Morales WPtel: [address] [place] [address] [place] RESCHEDULED 01/24/2016 Visit Plan: Patient had EMG on right arm and leg in May 2015 at [facility] and was negative Has not seen neurologist since 2nd neck surgery Add low dose lyrica at bedtime 50mg q HS 12/21/2015 Appointment: Tiara Morales WPtel: [address] [place] [address] 12/19 confirmed ~sl ACUTE ILLNESS 12/21/2015 Patient Education: Patient Medication Summary Completed 12/21/2015 Patient Education: Lyrica - 18+ - No MA [place] Completed 12/21/2015 Appointment: Tiara Morales WPtel: [address] [place] [address] 10/19 confirmed~sl...canceled, something unavaoidable came up.~lb CANCELED 10/21/2015 Visit Plan: Proceed with MRI of cervical /thoracic w/wo contrast. Has plans to follow-up with her surgeon in [place], [place] 09/27/2015 Appointment: Elizabeth Mccarthy WPtel: [address] [place] [address] ACUTE ILLNESS 09/27/2015 Patient Education: Patient Medication Summary Completed 09/27/2015 Care Plan: MRI NECK SPINE W/O DYE LOINC : 33265-1 Pending 09/27/2015 Care Plan: MRI CHEST SPINE W/O DYE LOINC : 55858-4 Pending 09/27/2015 Visit Plan: Increase cymbalta to 60mg da xiao Discussed updated MRI or EMG due to ongoing left arm numbness 08/26/2015 Appointment: Tiara Morales WPtel: [address] [place] [address] 08/24 confirmed ~sl FOLLOW UP 08/26/2015 Patient Education: Patient Medication Summary Completed 08/26/2015 Patient Education: [facility] - Saving Auto[employer]j - Cymbalta - 18-64 - Dynamic Portal ID Completed 08/26/2015 Visit Plan: Discussed establishing with Dermatology to remove moles and monitor skin lesions Trial of cymbalta 30mg daily for both depression and pain/neuropathy Going to counselor 07/27/2015 Appointment: Tiara Morales WPtel: [address] [place], [place] [phone] 07/13 this was origanally a 1mth FWUP [...] Start PT 06/08/2015 Appointment: Tiara Morales WPtel: [address] [place], [place] [phone] 06/08 lm ~sl FOLLOW UP 06/08/2015 Patient Education: Patient Medication Summary Completed 06/08/2015 Visit Plan: Patient going to [facility] this weekend and go to walk-in clinic and try to get seen Suggested rheumatology and neurology as main foci and evaluations Using flexeril prn 05/13/2015 Appointment: Tiara Morales WPtel: [address] [place] [address] ACUTE ILLNESS 05/13/2015 Patient Education: Patient Medication Summary Completed 05/13/2015 Appointment: Tiara Morales WPtel: [address] [place] [address] BP CHECK 05/06/2015 Patient Education: Patient Medication Summary Completed 05/06/2015 Visit Plan: Proceed with evaluation at [facility] for complete workup due to 2 cervical spinal compressions within 6mos as well as neuropathy, cephalgia--suspect connective tissue disease etiology or metabolic bone process 05/05/2015 Appointment: Tiara Morales WPtel: [address] [place] [address] 05/04/15 appt confirmed cn FOLLOW UP 05/05 Patient Education: Patient Medication Summary Completed 05/05/2015 Visit Plan: Warm moist heat to area twic e daily Apply Mupirocin 2% oint. to area bid 03/29/2015 Appointment: Elizabeth Mccarthy WPtel: [address] [place], [place] [phone] ACUTE ILLNESS 03/29/2015 Patient Education: Patient Medication Summary Completed 03/29/2015 Visit Plan: Check lab and proceed with E MGs of upper and lower extremities Check CBC, CMP, TSH, free T4, B12, ESR, CRP, SHERYL Increase gabapentin to 600mg q HS Starting PT as well 02/18/2015 Appointment: Tiara Morales WPtel: [address] [place], [place] [phone] 02/17/15 confirmed FOLLOW UP 02/18/2015 Patient Education: Patient Medication Summary Completed 02/18/2015 Patient Education: Patient Medication Summary Completed 02/15/2015 Visit Plan: Sees neurology tomorrow Will proceed with labwork and EMGs MRI results reviewed Finish abx Continue gabapentin 02/10/2015 Appointment: Tiara Morales WPtel: [address] [place], [place] [phone] FOLLOW UP 02/10/2015 Patient Education: Patient Medication Summary Completed 02/10/2015 Visit Plan: Finish abx Start Neurontin 3 00mg q HS Proceed with EMGS of UE and LEs--patient scheduled to see neurology next week Recheck 3-4weeks pending neurology evaluation 02/04/2015 Appointment: Tiara Morales WPtel: [address] [place] [phone] 02/02/15 appt confirmed cn FOLLOW UP 02/04 Patient Education: Patient Medication Summary Completed 02/04/2015 Appointment: Tiara Morales WPtel: [address] [place] [phone] [facility] 02/02/2015 Patient Education: Patient Medication Summary Completed 02/02/2015 Appointment: Elizabeth Mccarthy WPtel: [address] [place], [place] [phone] FOLLOW UP 01/13/2015 Visit Plan: restart Zoloft 1/2 tablet x 7 days then 1 tablet daily Currently doing Physical Therapy for low back pain. Appt. with ortho on 01/07/15 Hold on restarting Phentermine until stable on Zoloft 12/30/2014 Appointment: Elizabeth Mccarthy WPtel: [address] [place], [place] [phone] 12/29/2014 VM-roman...12/29 appt confirmed cn FOLLO W UP 12/30/2014 Patient Education: Patient Medication Summary Completed 12/30/2014 Patient Education: Patient Medication Summary Completed 12/16/2014 Appointment: Tiara Morales WPtel: [address] [place], [place] [phone] 12/03 vm cn 12/07 NO Show cn...called [...] Vit D 11/09/2014 Appointment: Tiara Morales WPtel: [address] [place] [phone] 11/06 confirmed -mf FOLLOW UP 11/09/2014 Patient Education: Patient Medication Summary Completed 11/09/2014 Visit Plan: MRI results discussed Procee d with neurosurgery evaluation Hydrocodone 7.5/325mg 1 po q 4hrs prn pain--#100 10/07/2014 Appointment: Tiara Morales WPtel: [address] [place], [place] [phone] [place] FOLLOW UP 10/07/2014 Patient Education: Patient Medication Summary Completed 10/07/2014 Referral: Bart Nava WPtel: [facility] [address] [place] [id number] Referral Initiated 10/06/2014 Appointment: Elizabeth Mccarthy WPtel: [address] [place], [place] [phone] ACUTE ILLNESS 10/01/2014 Patient Education: Patient Medication Summary Completed 10/01/2014 Visit Plan: PT for neck and thoracic Add Zorvolex 18mg po TID Continue flexeril 10mg q HS 09/22/2014 Appointment: Tiara Morales WPtel: [address] [place] [phone] FOLLOW UP 09/22/2014 Patient Education: Patient Medication Summary Completed 09/22/2014 Appointment: Tiara Morales WPtel: [address] [place], [place] [phone] ACUTE ILLNESS 09/16/2014 Appointment: Elizabeth Mccarthy WPtel: [address] [place], [place] [phone] [place] WORK IN 09/16/2014 Patient Education: Patient Medication Summary Completed 09/16/2014 Appointment: Elizabeth Mccarthy WPtel: [address] [place], [place] [phone] ACUTE ILLNESS 06/12/2014 Patient Education: Patient Medication Summary Completed 06/12/2014 Appointment: Tiara Morales WPtel: [address] [place] [address] INJECTION 03/18/2014 Patient Education: Patient Medication Summary Completed 03/18/2014 Appointment: Alannah Fink WPtel: [address] [place] [address] ACUTE ILLNESS 03/13/2014 Patient Education: Patient Medication Summary Completed 03/13/2014 Appointment: Tiara Morales WPtel: [address] [place] [address] FOLLOW UP 03/05/2014 Appointment: Tiara Morales WPtel: [address] [place], [place] [phone] 02/18 ACUTE ILLNESS 02/19/2014 Patient Education: Patient Medication Summary Completed 02/19/2014 Visit Plan: Add topamax Use excedrin sam colleen prn Start B12 sublingual 2500mcg daily 09/25/2013 Appointment: Tiara Morales WPtel: [address] [place] [address] ACUTE ILLNESS 09/25/2013 Patient Education: Patient Medication Summary Completed 09/25/2013 Appointment: Elizabeth Mccarthy WPtel: [address] [place], [place] [phone] ACUTE ILLNESS 08/08/2013 Patient Education: Patient Medication Summary Completed 08/08/2013 Visit Plan: Reports rash was present on knees. Has photo of redness/ irregular shaped rash on bilateral knees that appears to have since cleared. Reports that has been red and only mildly itchy for the last two weeks. Reports that had some finger numbness. Recent blood work reportedly performed at [facility] to evaluate for MS, mineral deficiency, etc in the spring for parasthesia. Will consider nerve conduction study if symptoms persist. 12/26/2012 Appointment: Reta Vines WPtel: [address] [place], [place] [phone] ACUTE ILLNESS 12/26/2012 Patient Education: Patient Medication Summary Completed 12/26/2012 Appointment: Tiara Morales WPtel: [address] [place] [phone] 11/27 left message ACUTE ILLNESS 11/28/2012 Patient [...] for symptoms/fever. 05/21/2012 Appointment: Reta Vines WPtel: [address] [place], [place] [phone] ACUTE ILLNESS 05/21/2012 Patient Education: Patient Medication Summary Completed 05/21/2012 Appointment: Tiara Morales WPtel: [address] [place] [phone] 04/11 message with patient That needs to rescedule patient physical appt on 04/16 patient was walking dog she will call to reschedule appt PHYSICAL 04/16/2012 Appointment: Reta Vines WPtel: [address] [place], [place] [phone] ACUTE ILLNESS 09/13/2011 Patient Education: Patient Medication [...] are normal. 11/29/2010 Appointment: Reta Vines WPtel: [address] [place] [address] ACUTE ILLNESS 11/29/2010 Patient Education: Patient Medication Summary Completed 11/29/2010 Appointment: Reta Vines WPtel: [address] [place] [address] ACUTE ILLNESS 08/10/2009 Patient Education: Patient Medication Summary Completed 08/10/2009 Appointment: Tiara Morales WPtel: [address] [place] [address] ACUTE ILLNESS 08/09/2009 Referral: Jaquan Simon WPtel: [address] [place] [address] [id number] [place] Referral Initiated Referral: Chuck Fermin WPtel: [address] [place] [address] [address] [place] [address] [place] Referral Completed Referral: Katie Elliott WPtel: [facility] [address] [id number] [place] Referral Completed Instructions Comment . Needs [...] and leg i n May 2015 at [facility] and was negative Has not seen neurologist since 2nd neck surgery Add low dose lyrica at bedtime 50mg q HS . Proceed with MRI of cervical/thoracic w/wo contrast. Has plans to follow-up with her surgeon in [place], [place] . Increase cymbalta to 60mg daily [...] HS Start PT . Patient going to [facility] this week end and go to walk-in clinic and try to get seen Suggested rheumatology and neurology as main foci and evaluations Using flexeril prn . Proceed with evaluation at [facility] for co mplete workup due to 2 [...] numbness. Recent blood work reportedly performed at [facility] to evaluate for MS, mineral deficiency, [...]
--- OUTSIDE RECORDS SUMMARY | 2019-08-19 01:16 | XMS REPORT | CCD ---
Author Author Venecia Morales D.O. 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 Name Role Phone Tiara Morales D.O., PP Unavailable CCM Unavailable Summary Purpose Interface Exchange Insurance Providers Payer name Policy type / Coverage type Covered green party ID Effective Begin Date Effective End Date [employer] Commercial Insurance [id number] 2019 Unknown Family history Mother Diagnosis Age At Onset Heart disease Unknown Father Diagnosis Age At Onset Heart disease Unknown Social History Social History Element Codes Description Effective Dates Tobacco history SNOMED CT: 695052352 Nonsmoker 12/14/2010 Marital status Unknown Single 08/10/2009 [...] Instructions Augmentin 875 mg-125 mg tablet RxNorm: 313417 1 Tablet(s) PO BID 07/07/2018 Inactive prednisone 20 mg tablet RxNorm: 530380 2 Tablet(s) PO QD 06/28/2018 0 07/02/2018 Inactive Macrobid 100 mg capsule RxNorm: 356965 1 Capsule(s) PO BID 10/27/19 17 10/25/2016 Inactive fluconazole 100 mg tablet RxNorm: 300394 1 Tablet(s) PO QD 10/27/19 17 11/01/2016 Inactive Macrobid 100 mg capsule RxNorm: 607247 1 Capsule(s) PO BID 10/27/19 17 11/01/2016 Inactive fluconazole 100 mg tablet RxNorm: 168945 1 Tablet(s) PO QD 10/27/19 17 10/25/2016 Inactive Pepcid 20 mg tablet RxNorm: 818443 1 Tablet(s) PO BID 09/26/201604/04 Inactive cyanocobalamin (vit B-12) 1,000 mcg/mL injection solution Rx Norm: 712518 1 Milliliter(s) Inj every 2 weeks for 3 months 04/21/2016 04/22/2018 [place] [facility]ive cyanocobalamin (vit B-12) 1,000 mcg/mL injection solution Rx Norm: 052573 1 Milliliter(s) Inj every 2 weeks for 3 months 04/21/2016 04/20/2016 [place] [facility] Bactrim DS 800 mg-160 mg tablet RxNorm: 418306 1 Tablet(s) PO BID 0 01/24/2016 01/23/2016 Inactive Bactrim DS 800 mg-160 mg tablet RxNorm: 831126 1 Tablet(s) PO BID 0 01/24/2016 01/30/2016 Inactive Cymbalta 60 mg capsule,delayed release RxNorm: 879973 1 Capsule (s) PO QD 01/11/2016 04/19/2016 Inactive Lyrica 50 mg capsule RxNorm: 781924 1 Capsule(s) PO QHS 12/21/2015 Inactive cyclobenzaprine 10 mg tablet RxNorm: 221771 1 Tablet(s) PO TID as needed for muscle spasm 09/27/2015 12/20/2015 Inactive Medrol (Mane) 4 mg tablets in a dose pack RxNorm: 534889 Tablet(s) PO As Directed 09/27/2015 12/20/2015 Inactive Cymbalta 60 mg capsule,delayed release RxNorm: 077805 1 Capsule (s) PO QD 08/26/2015 10/24/2015 Inactive Cymbalta 30 mg capsule,delayed release RxNorm: 112311 1 Capsule (s) PO QAM 07/27/2015 08/25/2015 Inactive cyclobenzaprine 10 mg tablet RxNorm: 704006 1 Tablet(s) PO Q8H as needed for muscle spasm 05/05/2015 06/07/2015 Inactive mupirocin 2 % topical ointment RxNorm: 013152 TOP 03/29/2015 1 07/05/2014 Inactive gabapentin 600 mg tablet RxNorm: 662691 1 Tablet(s) PO QHS 02/19/20 15 05/04/2015 Inactive Cipro 500 mg tablet RxNorm: 808042 1 Tablet(s) PO BID 02/02/201501/04 Inactive Cipro 500 mg tablet RxNorm: 354030 1 Tablet(s) PO BID 02/02/2015 0912/2014 Inactive Zoloft 50 mg tablet RxNorm: 173128 1 Tablet(s) PO QHS f or 1 week then increase to 1 po q HS 01/21/2015 05/04/2015 Inactive Zoloft 50 mg tablet RxNorm: 894866 1/2 Tablet(s) PO QHS for 1 week then increase to 1 po q HS 11/09/2014 01/06/2015 Inactive hydrocodone 5 mg-acetaminophen 325 mg tablet RxNorm: 593737 1 T ablet(s) PO 10/01/2014 05/04/2015 Inactive Zorvolex 18 mg capsule RxNorm: 0556907 1 Capsule(s) PO TID 09/23/1910/06/2014 Inactive Medrol (Mane) 4 mg tablets in a dose pack RxNorm: 935490 Tablet(s) P O 09/16/2014 09/21/2014 Inactive Flexeril 10mg tablet RxNorm: 1 Tablet(s) PO Q8H 09/16/2014 5 Inactive Cyanacobalamin 1,000 mcg/mL injection solution RxNorm: 02296 4 1 Milliliter(s) Inj every 2 weeks 03/05/2014 10/06/2014 Inactive Mobic 15 mg tablet RxNorm: 201869 1 Tablet(s) PO QD 02/19/20142013 Inactive Septra DS 800 mg-160 mg tablet RxNorm: 645418 1 Tablet(s) PO BI D antibiotic 10/23/2013 11/05/2013 Inactive Topamax 50 mg tablet RxNorm: 115481 1 Tablet(s) PO QHS 09/25/2013 Inactive phentermine 37.5 mg capsule RxNorm: 251734 1 Capsule(s) PO QD 08/0809/06/2013 Inactive Zithromax 250 mg tablet RxNorm: 987848 2 Tablet(s) PO QD 11/28/2012 0 12/04/2012 Inactive prednisone 20 mg tablet RxNorm: 839164 1 Tablet(s) PO BID 11/28/2012 12/04/2012 Inactive Septra DS 800 mg-160 mg tablet RxNorm: 235870 1 Tablet( s) PO BID take one tablet twice daily. antibiotic 05/21/2012 06/03/2012 Inactive Lo Loestrin Fe 1 mg-10 mcg (24)/10 mcg (2) Tab RxNorm: 81170 84 1 Tablet(s) PO QD 09/13/2011 09/21/2014 Inactive Ultram 50 mg tablet RxNorm: 802787 1 Tablet(s) PO Q4H as needed for pain No Start Date 09/30/2014 Inactive Prilosec OTC 20 mg tablet,delayed release RxNorm: 378164 1 Tabl et(s) PO QD No Start Date 06/27/2018 Inactive paroxetine 30 mg tablet RxNorm: 0605991 1 Tablet(s) PO QD No Start Date 06/27/2018 Inactive Valium 5 mg tablet RxNorm: 168263 1 Tablet(s) PO QHS No Start Date Inactive Medrol (Mane) 4 mg tablets in a dose pack RxNorm: 426103 Tablet(s) PO As Directed No Start Date 09/26/2015 Inactive cyclobenzaprine 10 mg tablet RxNorm: 737544 1 Tablet(s) PO TID as needed for muscle spasm No Start Date 09/26/2015 Inactive Robaxin 750 mg tablet RxNorm: 004113 1 Tablet(s) PO Q4H as needed for muscle spasm No Start Date 12/29/2014 Inactive phentermine 30 mg capsule RxNorm: 271608 1 Capsule(s) PO QAM No Sta rt Date 02/18/2014 Inactive Cyanacobalamin 1,000 mcg/mL injection solution RxNorm: 22518 4 1 Milliliter(s) Inj every 2 weeks No Start Date 03/04/2014 Inactive cyclobenzaprine 10 mg tablet RxNorm: 311563 1 Tablet(s) PO Q8H as needed for muscle spasm No Start Date 05/04/2015 Inactive hydrocodone 5 mg-acetaminophen 325 mg tablet RxNorm: 887354 1 Tablet(s) PO as needed for pain No Start Date 04/19/2016 Inactive Vitamin D3 2,000 unit tablet RxNorm: 411841 1 Tablet(s) PO QD No St art Date 04/22/2018 Inactive hydrocodone 10 mg-acetaminophen 325 mg tablet RxNorm: 919386 1 Tablet(s) PO Q4H as needed for pain No Start Date 06/07/2015 Inactive Medication Administered No Medication Administered data Immunizations No Immunization data Results No Results data Procedures Procedure Codes Date TB INTRADERMAL TEST CPT-4: 32200 05/08/2018 URINALYSIS NONAUTO W/O SCOPE CPT-4: 42183 10/25/2016 URINE CULTURE/ COLONY COUNT CPT-4: 25441 10/25/2016 URINALYSIS NONAUTO W/O SCOPE CPT-4: 70459 07/25/2016 URINALYSIS NONAUTO W/O SCOPE CPT-4: 89547 02/28/2016 URINE CULTURE/ COLONY COUNT CPT-4: 59202 02/18/2015 URINALYSIS NONAUTO W/O SCOPE CPT-4: 80031 02/02/2015 URINE CULTURE/ COLONY COUNT CPT-4: 77945 02/02/2015 THER/PROPH/DIAG INJ SC/IM CPT-4: 83062 03/13/2014 METHYLPREDNISOLONE 40 MG INJ CPT-4: J1030 03/13/2014 TRIAMCINOLONE ACET INJ NOS CPT-4: J3301 03/13/2014 THER/PROPH/DIAG INJ SC/IM CPT-4: 56710 02/19/2014 VITAMIN B12 INJECTION CPT-4: J3420 02/19/2014 THER/PROPH/DIAG INJ SC/IM CPT-4: 29324 11/28/2012 METHYLPREDNISOLONE 40 MG INJ CPT-4: J1030 11/28/2012 TRIAMCINOLONE ACET INJ NOS CPT-4: J3301 11/28/2012 URINALYSIS NONAUTO W/O SCOPE CPT-4: 19151 09/13/2011 URINE TEST CPT-4: 22051 09/13/2011 URINALYSIS NONAUTO W/O SCOPE CPT-4: 06876 08/10/2009 Vital Signs Date Vital 08/12/2019 Blood Pressure 1: 116/80 Code: 8480-6 BMI: 28.4 Code: 23282-7 Heart Rate 1: 92 bpm Height: 5'9" Respiratory Rate: 20 bpm SpO2: 96% Tempera ture: 36.2 (C) / 97.1 (F) Weight: 192 lbs 12/11/2018 Blood Pressure 1: 114/70 Code: 8480-6 BMI: 29.2 Code: 80801-9 Heart Rate 1: 92 bpm Height: 5'9" [...] 1: 126/82 Code: 8480-6 BMI: 28.6 Code: 07744-8 Heart Rate 1: 100 bpm Height: 5'9" [...] 1: 112/78 Code: 8480-6 BMI: 28.2 Code: 09471-7 Heart Rate 1: 76 bpm Height: 5'9" [...] 1: 114/78 Code: 8480-6 BMI: 27.0 Code: 17581-0 Heart Rate 1: 76 bpm Height: 5'10" Respiratory Rate: 20 bpm Temperature: 36 .8 (C) / 98.2 (F) Weight: 188 lbs 06/08/2015 Blood Pressure 1: 132/80 Code: 8480-6 Heart Rate 1: 88 bpm Height: 5'10" Respiratory Rate: 20 bpm Temperature: 36.6 (C) / 97.9 (F) We ight: 05/13/2015 Blood Pressure 1: 104/70 Code: 8480-6 BMI: 26.3 Code: 02296-3 Heart Rate 1: 112 bpm Height: 5'10" Respiratory Rate: 20 bpm Temperature: 36 .9 (C) / 98.5 (F) Weight: 183 lbs 05/06/2015 Blood Pressure 1: 112/68 Code: 8480-6 art Rate 1: 70 bpm 05/05/2015 Blood Pressure 1: 136/78 Code: 8480-6 BMI: 35.7 Code: 43321-4 Heart Rate 1: 116 bpm Height: 5' Respiratory Rate: 20 bpm Temperature: 36 .6 (C) / 97.8 (F) Weight: 183 lbs 03/29/2015 Blood Pressure 1: 108/62 Code: 8480-6 BMI: 26.8 Code: 25733-3 Heart Rate 1: 78 bpm Height: 5'10" Respiratory Rate: 22 bpm Temperature: 36 .6 (C) / 97.9 (F) Weight: 187 lbs 02/18/2015 Blood Pressure 1: 126/70 Code: 8480-6 BMI: 25.3 Code: 34661-5 Heart Rate 1: 92 bpm Height: 5'10" Respiratory Rate: 20 bpm Temperature: 37 .2 (C) / 99.0 (F) Weight: 176 lbs 02/10/2015 Blood Pressure 1: 134/86 Code: 8480-6 BMI: 25.3 Code: 49841-4 Heart Rate 1: 108 bpm Height: 5'10" Respiratory Rate: 20 bpm Temperature: 37 .7 (C) / 99.9 (F) Weight: 176 lbs 02/04/2015 Blood Pressure 1: 126/78 Code: 8480-6 Heart Rate 1: 104 bpm Respiratory Rate: 20 bpm Temperature: 36.7 (C) / 98.1 (F) Weight: 176 lbs 12/30/2014 Blood Pressure 1: 110/68 Code: 8480-6 BMI: 25.7 Code: 23491-1 Heart Rate 1: 72 bpm Height: 5'10" Respiratory Rate: 18 bpm Temperature: 36 .2 (C) / 97.1 (F) Weight: 179 lbs 11/09/2014 Blood Pressure 1: 112/78 Code: 8480-6 BMI: 25.7 Code: 19610-5 Heart Rate 1: 92 bpm Height: 5'9" Respiratory Rate: 20 bpm Temperature: 36 .6 (C) / 97.9 (F) Weight: 174 lbs 10/07/2014 Blood Pressure 1: 118/78 Code: 8480-6 BMI: 26.6 Code: 76759-2 Heart Rate 1: 108 bpm Height: 5'9" Respiratory Rate: 20 bpm Temperature: 36 .6 (C) / 97.8 (F) Weight: 180 lbs 10/01/2014 Blood Pressure 1: 138/88 Code: 8480-6 BMI: 26.6 Code: 47600-5 Heart Rate 1: 98 bpm Height: 5'9" Respiratory Rate: 22 bpm Temperature: 36 .4 (C) / 97.6 (F) Weight: 180 lbs 09/22/2014 Blood Pressure 1: 110/74 Code: 8480-6 BMI: 25.8 Code: 05889-2 Heart Rate 1: 94 bpm Height: 5'10" Respiratory Rate: 18 bpm Temperature: 36 .7 (C) / 98.1 (F) Weight: 180 lbs 09/16/2014 Blood Pressure 1: 126/80 Code: 8480-6 Heart Rate 1: 96 bpm Height: Respiratory Rate: 20 bpm Temperature: 36.8 (C) / 98.2 (F) Weight: 06/12/2014 Blood Pressure 1: 110/64 Code: 8480-6 BMI: 25.8 Code: 04358-2 Heart Rate 1: 84 bpm Height: 5'10" Respiratory Rate: 22 bpm Temperature: 36 .6 (C) / 97.8 (F) Weight: 180 lbs 03/13/2014 Blood Pressure 1: 112/ Code: 8480-6 BMI: 26.9 Code: 89710-3 Heart Rate 1: 76 bpm Height: 5'8" Respiratory Rate: 20 bpm Temperature: 36 .7 (C) / 98.0 (F) Weight: 177 lbs 02/19/2014 Blood Pressure 1: 112 Code: 8480-6 BMI: 26.9 Code: 88628-9 Heart Rate 1: 76 bpm Height: 5'8" [...] 1: 135/86 Code: 8480-6 BMI: 24.3 Code: 93352-1 Heart Rate 1: 96 bpm Height: 5'8" Respiratory Rate: 20 bpm Temperature: 36 .7 (C) / 98.1 (F) Weight: 160 lbs 11/28/2012 Blood Pressure 1: 124/70 Code: 8480-6 BMI: 24.2 Code: 56750-2 Heart Rate 1: 92 bpm Height: 5'8" Respiratory Rate: 20 bpm Temperature: 36 .4 (C) / 97.6 (F) Weight: 159 lbs 05/21/2012 Blood Pressure 1: 100/64 Code: 8480-6 BMI: 26.6 Code: 82384-2 Heart Rate 1: 68 bpm Height: 5'8" Temperature: 37.2 (C) / 99.0 (F) Weight: 175 lbs 09/13/2011 Blood Pressure 1: 106/64 Code: 8480-6 BMI: 25.5 Code: 71628-4 Heart Rate 1: 74 bpm Height: 5'8" Temperature: 36.6 (C) / 97.8 (F) Weight: 168 lbs 11/29/2010 Blood Pressure 1: 110/58 Code: 8480-6 BMI: 25.7 Code: 48816-6 Heart Rate 1: 74 bpm Height: 5'8" Temperature: 36.8 (C) / 98.2 (F) Weight: 169 lbs 08/10/2009 Blood Pressure 1: 118/64 Code: 8480-6 BMI: 24.8 Code: 63306-1 Heart Rate 1: 80 bpm Height: 5'9" [...] Care 1 month ago and diagnosed with [facility] follow up 07/25/2016 Recurrent- intereste d in [...] pain Encounters Encounter Performer Location Codes Date ([id number]) OFFICE/OUTPATIENT VISIT EST Diagnosis: Chest wall pain[ICD10: R07.89] Diagnosis: Costochondritis, acute[ICD10: M94.0] Diagnosis: Tear of right retina without detachment[ICD10: H33.301] Tiara MORALES [facility] CPT-4: 09847 08/12/2019 ([id number]) OFFICE/OUTPATIENT VISIT EST Diagnosis: Spontaneous ecchymoses[ICD10: R23.3] Diagnosis: Other fatigue[ICD10: R53.83] Tiara MORALES [facility] CPT-4: 04948 12/11/2018 ([id number]) OFFICE/OUTPATIENT VISIT EST Diagnosis: Left upper quadrant pain[ICD10: R10.12] Tiara MORALES [facility] CPT-4: 48659 08/14/2018 ([id number]) OFFICE/OUTPATIENT VISIT EST Diagnosis: Acute sinusitis, unspecified[ICD10: J01.90] Gabrielle MORALES DO [facility] CPT-4: 18871 06/28/2018 ([id number]) NURSE/OUTPATIENT VISIT EST Diagnosis: SCREENING-PULMONARY TB[ICD10: Z11.1] Tiara MORALES DO [facility] CPT-4: 10300 05/10/2018 ([id number]) NURSE/OUTPATIENT VISIT EST Diagnosis: SCREENING-PULMONARY TB[ICD10: Z11.1] Tiara MORALES DO [facility] CPT-4: 13613 05/08/2018 ([id number]) PREV VISIT EST AGE 18-39 Diagnosis: Encounter for general adult medical examination without abnormal findings[ICD10: Z00.00] Diagnosis: Left upper quadrant pain[ICD10: R10.12] Tiara MORALES DO [facility] CPT-4: 35131 04/23/2018 ([id number]) OFFICE/OUTPATIENT VISIT EST Diagnosis: Dysuria[ICD10: R30.0] Tiara MORALES DO [facility] CPT-4: 56243 10/25/2016 ([id number]) OFFICE/OUTPATIENT VISIT EST Diagnosis: Left upper quadrant pain[ICD10: R10.12] Tiara MORALES DO [facility] CPT-4: 84976 09/26/2016 ([id number]) OFFICE/OUTPATIENT VISIT EST Diagnosis: Urinary tract infection, site not specified[ICD10: N39.0] Tiara MORALES DO [facility] CPT-4: 80404 07/25/2016 ([id number]) OFFICE/OUTPATIENT VISIT EST Diagnosis: Deficiency of other specified B group vitamins[ICD10: E53.8] Diagnosis: Polyneuropathy, unspecified[ICD10: G62.9] Diagnosis: Other lack of coordination[ICD10: R27.8] Tiara MORALES DO [facility] CPT-4: 86458 04/20/2016 ([id number]) OFFICE/OUTPATIENT VISIT EST Diagnosis: Generalized enlarged lymph nodes[ICD10: R59.1] Diagnosis: Dysuria[ICD10: R30.0] Ashleylucio TALAVERALINE Jenna MORALES DO [facility] CPT-4: 16203 02/28/2016 ([id number]) OFFICE/OUTPATIENT VISIT EST Diagnosis: Polyneuropathy, unspecified[ICD10: G62.9] Tiara TALAVERALINE DevanLauren MARIIA CLEMONS [facility] CPT-4: 16561 12/21/2015 OFFICE/OUTPATIENT VISIT EST Diagnosis: Radiculopathy, cervical region[ICD10: M54.12] Diagnosis: Neuralgia and neuritis, unspecified[ICD10: M79.2] Elizabeth MORALES DO [facility] CPT-4: 61817 09/27/2015 OFFICE/OUTPATIENT VISIT EST Diagnosis: Other cervical disc displacement, 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] Diagnosis: Radiculopathy, cervical region[ICD10: M54.12] Diagnosis: Generalized anxiety disorder[ICD10: F41.1] Tiara Geraspencer TIARA DevanLauren MARIIA [facility] CPT-4: 93257 08/26/2015 ([id number]) OFFICE/OUTPATIENT VISIT EST Diagnosis: Melanocytic nevi, unspecified[ICD10: D22.9] Diagnosis: Acute stress reaction[ICD10: F43.0] Tiara SULTANA DevanLauren MARIIA [facility] CPT-4: 87903 07/27/2015 ([id number]) OFFICE/OUTPATIENT VISIT EST Diagnosis: Vitamin D deficiency, unspecified[ICD10: E55.9] Diagnosis: Polyneuropathy, unspecified[ICD10: G62.9] Tiara VELARDE DevanLauren [facility]II[facility] CPT-4: 98935 06/08/2015 OFFICE/OUTPATIENT VISIT EST Diagnosis: Mononeuropathy, 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] Diagnosis: Cervicalgia[ICD10: M54.2] Tiara VELARDE DevanLauren GERA WILSON [facility] CPT-4: 41516 05/13/2015 OFFICE/OUTPATIENT VISIT EST Diagnosis: Other cervical disc displacement, 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] Diagnosis: Intervertebral disc disorders with myelopathy, 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] [facility]: 02162 05/05/2015 OFFICE/OUTPATIENT VISIT EST Diagnosis: Insect bite (nonvenomous) of breast, right breast, initial encounter[ICD10: S20.161A] Elizabeth AmbroseKassandramu MORALES [facility] CPT-4: 55266 03/29/2015 ([id number]) OFFICE/OUTPATIENT VISIT EST Diagnosis: DISTURBANCE OF SKIN SENSATION (Paresthesia)[ICD9: 782.0] Diagnosis: MUSCLE WEAKNESS-GENERAL[ICD9: 728.87] Tiara MORALES [facility] CPT-4: 58769 02/18/2015 ([id number]) OFFICE/OUTPATIENT VISIT EST Diagnosis: URINARY TRACT INFECTION[ICD9: 599.0] Diagnosis: DISTURBANCE OF SKIN SENSATION (Paresthesia)[ICD9: 782.0] [facility]: 27114 02/10/2015 ([id number]) OFFICE/OUTPATIENT VISIT EST Diagnosis: DISTURBANCE OF SKIN SENSATION (Paresthesia)[ICD9: 782.0] Diagnosis: SCIATICA[ICD9: 724.3] Diagnosis: URINARY TRACT INFECTION[ICD9: 599.0] Diagnosis: CEPHALGIA[ICD9: 784.0] Tiara [facility] CPT-4: 90064 02/04/2015 ([id number]) OFFICE/OUTPATIENT VISIT EST Diagnosis: HEMATURIA NOS[ICD9: 599.70] Tiara Bossrexshane TALAVERATIARA Jenna Mcdowell [facility] CPT-4: 78148 02/02/2015 OFFICE/OUTPATIENT VISIT EST Diagnosis: SCIATICA[ICD9: 724.3] Diagnosis: ANXIETY STATE NOS[ICD9: 300.00] Diagnosis: ABNORMAL WEIGHT GAIN[ICD9: 783.1] Elizabeth AmbroseKassandradebirosio ALICIA MORALES [facility] CPT-4: 31253 12/30/2014 ([id number]) OFFICE/OUTPATIENT VISIT EST Diagnosis: S/P cervical spinal fusion[ICD9: V45.4] Diagnosis: SCIATICA[ICD9: 724.3] Diagnosis: ANXIETY STATE NOS[ICD9: 300.00] Tiara Gerarexshane JACOBSTIARA DevanLauren MARIIA [facility] CPT-4: 44694 11/09/2014 ([id number]) OFFICE/OUTPATIENT VISIT EST Diagnosis: Degenerative disc disease, cervical[ICD9: 722.4] Diagnosis: Herniated disc, cervical[ICD9: 722.0] Diagnosis: Radiculopathy of arm[ICD9: 723.4] Tiara Krishnanshane JACOBSALICIAMARVIN MORALES DO [facility] CPT-4: 40529 10/07/2014 ([id number]) OFFICE/OUTPATIENT VISIT EST Diagnosis: CERVICALGIA[ICD9: 723.1] Diagnosis: Trapezius muscle spasm[ICD9: 728.85] Diagnosis: Radiculopathy of arm[ICD9: 723.4] Elizabeth AmbroseEvelina VARGAS Julius HartmanLauren MARIIA [facility] CPT-4: 04363 10/01/2014 ([id number]) OFFICE/OUTPATIENT VISIT EST Diagnosis: SCIATICA[ICD9: 724.3] Diagnosis: Radiculopathy of arm[ICD9: 723.4] Tiara Geraspencer VARGAS Julius HartmanLauren MARII[facility] CPT-4: 62487 09/22/2014 ([id number]) OFFICE/OUTPATIENT VISIT EST Diagnosis: Shoulder pain, acute[ICD9: 719.41] Diagnosis: Arm paresthesia, left[ICD9: 782.0] Diagnosis: CERVICALGIA[ICD9: 723.1] Elizabeth AmbroseEvelina VELARDE DevanLauren [facility] CPT-4: 96715 09/16/2014 OFFICE/OUTPATIENT VISIT EST Diagnosis: Ingrown hair[ICD9: 704.8] Diagnosis: KELOID SCAR[ICD9: 701.4] Elizabeth AmbroseEvelina VELARDE DevanLauren [facility] CPT-4: 11352 06/12/2014 ([id number]) OFFICE/OUTPATIENT VISIT EST Diagnosis: B12 deficiency[ICD9: 266.2] Tiara ARVIZU [facility] CPT-4: 84407 03/18/2014 OFFICE/OUTPATIENT VISIT EST Diagnosis: SINUSITIS, ACUTE[ICD9: 461.9] Alannah VELARDE [facility] CPT-[facility]: 35090 03/13/2014 ([id number]) OFFICE/OUTPATIENT VISIT EST Diagnosis: Numbness and tingling[ICD9: 782.0] Diagnosis: Lateral epicondylitis[ICD9: 726.32] Diagnosis: B12 deficiency[ICD9: 266.2] Tiara ARVIZU [facility] CPT-4: 19608 02/19/2014 ([id number]) OFFICE/OUTPATIENT VISIT EST Diagnosis: MIGRAINE NOS/NOT INTRCBL[ICD9: 346.90] Diagnosis: Numbness and tingling[ICD9: 782.0] Tiara West GERANDER [facility] CPT-4: 66735 09/25/2013 OFFICE/OUTPATIENT VISIT EST Diagnosis: Contact dermatitis and eczema[ICD9: 692.9] Diagnosis: ABNORMAL WEIGHT GAIN[ICD9: 783.1] Elizabeth West GERANDER [facility] CPT-4: 75446 08/08/2013 OFFICE/OUTPATIENT VISIT EST Diagnosis: Rash[ICD9: 782.1] Diagnosis: Numbness and tingling[ICD9: 782.0] Reta West [facility] CPT-4: 34475 12/26/2012 ([id number]) OFFICE/OUTPATIENT VISIT EST Diagnosis: ALLERGIC RHINITIS[ICD9: 477.9] Diagnosis: SINUSITIS, ACUTE[ICD9: 461.9] Tiara MORALES [facility] CPT-4: 14721 11/28/2012 OFFICE/OUTPATIENT VISIT EST Diagnosis: SINUSITIS, ACUTE[ICD9: 461.9] Diagnosis: FEBRILE ILLNESS[ICD9: 780.60] Tiara MORALES [facility] CPT-4: 42847 05/21/2012 OFFICE/OUTPATIENT VISIT EST Diagnosis: ABDOMINAL PAIN[ICD9: 789.00] Diagnosis: Menstrual cramps[ICD9: 625.3] Reta MORALES [facility] CPT-4: 93454 09/13/2011 OFFICE/OUTPATIENT VISIT EST Tiara WILSON [facility] CPT- 4: 47748 11/29/2010 ([id number]) OFFICE/OUTPATIENT VISIT, EST Tiara MORALES DO [facility] CPT-4: 76461 08/10/2009 Plan of Care Planned Activity Notes [...] : R23.3 12/11/2018 Appointment: Tiara Morales WPtel: [address] [place] [address] FOLLOW UP 12/11/2018 Visit Diagnosis Plan: Left [...] : R10.12 08/14/2018 Appointment: Tiara Morales WPtel: [address] [place] [address] ACUTE ILLNESS 08/14/2018 Care Plan: Referral Order SNOMED-CT : [id number] Pending 08/14/2018 Care Plan: A1C HPLC LOINC : 41915-9 Pending 08/14/2018 Visit Diagnosis Plan: Acute sinusitis, unspecified Dis cussion: due to length of symptoms, patient started on augmentin and prednisone. instructed to take probiotics or yogurt to help prevent gi upset or yeast infection. call or rtc with new or worsening symptoms or if continues past antibiotics. ICD-9 : 461.9 ICD-10 : J01.90 06/28/2018 Appointment: Gabrielle Carter [address] [place] [address] ACUTE ILLNESS 06/28/2018 Patient Education: prednisone- Opt[employer] Coupon [id number] [email or web address] Completed 06/28/2018 Appointment: Tiara Morales WPtel: [address] [place], [place] [phone] US TB Test read 05/10/2018 Appointment: Tiara Morales WPtel: [address] [place] [address] US TB Test 05/08/2018 Visit Diagnosis Plan: Left upper quadrant pain Discuss ion: Has had full lab workup, CXR, Abdominal US and EGD and has CT scan of abdomen/pelvis tomorrow Discussed Xifaxin trial pending CT scan results Also discussed Colonoscopy if pain persists after xifaxin therapy ICD-9 : 789.02 ICD-10 : R10.12 04/23/2018 Visit Diagnosis Plan: Encounter for [facility] medical examination without abnormal findings Discussion: Foster care form filled out Will return next week for TB test ICD-9 : V70.9 ICD-10 : Z00.00 04/23/2018 Appointment: Tiara Morales WPtel: [address] [place] [address] [place] PHYSICAL 04/23/2018 Appointment: Tiara Morales WPtel: [address] [place], [place] [phone] [place] UA 10/25/2016 Patient Education: Patient Medication Summary Completed 10/25/2016 Appointment: Tiara Morales WPtel: [address] [place], [place] [phone] [place] 10/16 canceled `sl, patient in hospital per Dr Mcdowell (km) CANCELED 10/17/2016 Patient Education: Patient Medication Summary Completed 10/03/2016 Care Plan: CT ABDOMEN W/O DYE LOINC : 36 103-0 Pending 10/03/2016 Appointment: Tiara Morales WPtel: [address] [place], [place] [phone] [place] 09/25 rescheduled~sl RESCHEDULED 10/02/2016 Visit Diagnosis Plan: Left upper quadrant pain Discuss ion: Pepcid 20 mg PO BID Hold on CT scan of abdomen until fwup Diet: GERD diet Follow Up: 2 weeks ICD-9 : 789.02 ICD-10 : R10.12 09/26/2016 Appointment: Tiara Morales WPtel: [address] [place], [place] [phone] [place] FOLLOW UP 09/26/2016 Patient Education: Patient Medication Summary Completed 09/26/2016 Appointment: Tiara Morales WPtel: [address] [place], [place] [phone] [place] CANCELED 09/11/2016 Appointment: Tiara Morales WPtel: [address] [place], [place] [phone] [place] 08/10 lm `sl 08/14 canceled feeling better~sl CANCE LED 08/14/2016 Visit Diagnosis Plan: Urinary tract infection, site no t specified Discussion: Stop Augmentin Hydrate See urology Large blood in urine likely from menses ICD-9 : 599.0 ICD-10 : N39.0 07/25/2016 Appointment: Tiara Morales WPtel: [address] [place], [place] [phone] [place] 07/24 confirmed`sl ACUTE ILLNESS 07/25/2016 Patient Education: Patient Medication Summary Completed 07/25/2016 Appointment: Tiara Morales WPtel: [address] [place], [place] [phone] [place] 06/20 confirmed~sl 06/20 Canceled~sl CANCELED 06/21/2016 Referral: Katie Elliott WPtel: [facility] [address] [id number] [place] Referral Appointment Completed 06/06/2016 Patient Education: Patient Medication Summary Completed 04/21/2016 Care Plan: A1C HPLC LOINC : 81440-4 Pending 04/21/2016 Visit Plan: Needs to go back to neurolog y Check TSH, Free T4, B12, iron, CMP, Vit D 04/20/2016 Appointment: Tiara Morales WPtel: [address] [place] [address] ACUTE ILLNESS 04/20/2016 Patient Education: Patient Medication Summary Completed 04/20/2016 Patient Education: Patient Medication Summary Completed 03/09/2016 Care Plan: US EXAM CHEST Soft Tissue LOINC : 09615-8 Pending 03/09/2016 Appointment: Tiara Morales WPtel: [address] [place] [address] [place] 02/28 was able to be seen sooner~sl RESCHEDULED 03/01/2016 Visit Plan: Office dip is wnl, no cultur e sent CBC today to look for infectious process If negative, can consider soft tissue US Would order mammogram/breast US as well but she is having free mammo at work in the next 1-2 weeks 02/28/2016 Appointment: Ashley Olivo [address] [place] [address] ACUTE ILLNESS 02/28/2016 Patient Education: Patient Medication Summary Completed 02/28/2016 Appointment: Tiara Morales WPtel: [address] [place] [address] [place] RESCHEDULED 01/24/2016 Visit Plan: Patient had EMG on right arm and leg in May 2015 at [facility] and was negative Has not seen neurologist since 2nd neck surgery Add low dose lyrica at bedtime 50mg q HS 12/21/2015 Appointment: Tiara Morales WPtel: [address] [place] [address] 12/19 confirmed ~sl ACUTE ILLNESS 12/21/2015 Patient Education: Patient Medication Summary Completed 12/21/2015 Patient Education: Lyrica - 18+ - No MA [place] Completed 12/21/2015 Appointment: Tiara Morales WPtel: [address] [place] [address] 10/19 confirmed~sl...canceled, something unavaoidable came up.~lb CANCELED 10/21/2015 Visit Plan: Proceed with MRI of cervical /thoracic w/wo contrast. Has plans to follow-up with her surgeon in [place], [place] 09/27/2015 Appointment: Elizabeth Mccarthy WPtel: [address] [place] [address] ACUTE ILLNESS 09/27/2015 Patient Education: Patient Medication Summary Completed 09/27/2015 Care Plan: MRI NECK SPINE W/O DYE LOINC : 63352-6 Pending 09/27/2015 Care Plan: MRI CHEST SPINE W/O DYE LOINC : 00449-2 Pending 09/27/2015 Visit Plan: Increase cymbalta to 60mg da xiao Discussed updated MRI or EMG due to ongoing left arm numbness 08/26/2015 Appointment: Tiara Morales WPtel: [address] [place] [address] 08/24 confirmed ~sl FOLLOW UP 08/26/2015 Patient Education: Patient Medication Summary Completed 08/26/2015 Patient Education: [facility] - Saving [employer] - Cymbalta - 18-64 - Dynamic Portal ID Completed 08/26/2015 Visit Plan: Discussed establishing with Dermatology to remove moles and monitor skin lesions Trial of cymbalta 30mg daily for both depression and pain/neuropathy Going to counselor 07/27/2015 Appointment: Tiara Morales WPtel: [address] [place], [place] [address] 07/13 this was origanally a 1mth FWUP [...] Start PT 06/08/2015 Appointment: Tiara Morales WPtel: [address] [place], [place] [phone] 06/08 lm ~sl FOLLOW UP 06/08/2015 Patient Education: Patient Medication Summary Completed 06/08/2015 Visit Plan: Patient going to [facility] this weekend and go to walk-in clinic and try to get seen Suggested rheumatology and neurology as main foci and evaluations Using flexeril prn 05/13/2015 Appointment: Tiara Morales WPtel: [address] [place] [address] ACUTE ILLNESS 05/13/2015 Patient Education: Patient Medication Summary Completed 05/13/2015 Appointment: Tiara Morales WPtel: [address] [place] [address] BP CHECK 05/06/2015 Patient Education: Patient Medication Summary Completed 05/06/2015 Visit Plan: Proceed with evaluation at [facility] for complete workup due to 2 cervical spinal compressions within 6mos as well as neuropathy, cephalgia--suspect connective tissue disease etiology or metabolic bone process 05/05/2015 Appointment: Tiara Morales WPtel: [address] [place] [address] 05/04/15 appt confirmed cn FOLLOW UP 05/05 Patient Education: Patient Medication Summary Completed 05/05/2015 Visit Plan: Warm moist heat to area twic e daily Apply Mupirocin 2% oint. to area bid 03/29/2015 Appointment: Elizabeth Mccarthy WPtel: [address] [place], [place] [phone] ACUTE ILLNESS 03/29/2015 Patient Education: Patient Medication Summary Completed 03/29/2015 Visit Plan: Check lab and proceed with E MGs of upper and lower extremities Check CBC, CMP, TSH, free T4, B12, ESR, CRP, SHERYL Increase gabapentin to 600mg q HS Starting PT as well 02/18/2015 Appointment: Tiara Morales WPtel: [address] [place], [place] [phone] 02/17/15 confirmed FOLLOW UP 02/18/2015 Patient Education: Patient Medication Summary Completed 02/18/2015 Patient Education: Patient Medication Summary Completed 02/15/2015 Visit Plan: Sees neurology tomorrow Will proceed with labwork and EMGs MRI results reviewed Finish abx Continue gabapentin 02/10/2015 Appointment: Tiara Morales WPtel: [address] [place], [place] [phone] FOLLOW UP 02/10/2015 Patient Education: Patient Medication Summary Completed 02/10/2015 Visit Plan: Finish abx Start Neurontin 3 00mg q HS Proceed with EMGS of UE and LEs--patient scheduled to see neurology next week Recheck 3-4weeks pending neurology evaluation 02/04/2015 Appointment: Tiara Morales WPtel: [address] [place], [place] [phone] 02/02/15 appt confirmed cn FOLLOW UP 02/04 Patient Education: Patient Medication Summary Completed 02/04/2015 Appointment: Tiara Morales WPtel: [address] [place], [place] [phone] [facility] 02/02/2015 Patient Education: Patient Medication Summary Completed 02/02/2015 Appointment: Elizabeth Mccarthy WPtel: [address] [place], [place] [phone] FOLLOW UP 01/13/2015 Visit Plan: restart Zoloft 1/2 tablet x 7 days then 1 tablet daily Currently doing Physical Therapy for low back pain. Appt. with ortho on 01/07/15 Hold on restarting Phentermine until stable on Zoloft 12/30/2014 Appointment: Elizabeth Mccarthy WPtel: [address] [place], [place] [phone] 12/29/2014 VM-roman...12/29 appt confirmed cn FOLLO W UP 12/30/2014 Patient Education: Patient Medication Summary Completed 12/30/2014 Patient Education: Patient Medication Summary Completed 12/16/2014 Appointment: Tiara Morales WPtel: [address] [place], [place] [phone] 12/03 vm cn 12/07 NO Show cn...called [...] Vit D 11/09/2014 Appointment: Tiara Morales WPtel: [address] [place], [place] [phone] 11/06 confirmed -mf FOLLOW UP 11/09/2014 Patient Education: Patient Medication Summary Completed 11/09/2014 Visit Plan: MRI results discussed Procee d with neurosurgery evaluation Hydrocodone 7.5/325mg 1 po q 4hrs prn pain--#100 10/07/2014 Appointment: Tiara Morales WPtel: [address] [place], [place] [phone] [place] FOLLOW UP 10/07/2014 Patient Education: Patient Medication Summary Completed 10/07/2014 Referral: Bart Nava WPtel: [facility] [address] [id number] Referral Initiated 10/06/2014 Appointment: Elizabeth Mccarthy WPtel: [address] [place], [place] [phone] ACUTE ILLNESS 10/01/2014 Patient Education: Patient Medication Summary Completed 10/01/2014 Visit Plan: PT for neck and thoracic Add Zorvolex 18mg po TID Continue flexeril 10mg q HS 09/22/2014 Appointment: Tiara Morales WPtel: [address] [place], [place] [phone] FOLLOW UP 09/22/2014 Patient Education: Patient Medication Summary Completed 09/22/2014 Appointment: Tiara Morales WPtel: [address] [place], [place] [phone] ACUTE ILLNESS 09/16/2014 Appointment: Elizabeth Mccarthy WPtel: [address] [place], [place] [phone] [place] WORK IN 09/16/2014 Patient Education: Patient Medication Summary Completed 09/16/2014 Appointment: Elizabeth Mccarthy WPtel: [address] [place], [place] [phone] ACUTE ILLNESS 06/12/2014 Patient Education: Patient Medication Summary Completed 06/12/2014 Appointment: Tiara Morales WPtel: [address] [place] [address] INJECTION 03/18/2014 Patient Education: Patient Medication Summary Completed 03/18/2014 Appointment: Alannah Fink WPtel: [address] [place] [address] ACUTE ILLNESS 03/13/2014 Patient Education: Patient Medication Summary Completed 03/13/2014 Appointment: Tiara Morales WPtel: [address] [place] [address] FOLLOW UP 03/05/2014 Appointment: Tiara Morales WPtel: [address] [place], [place] [phone] 02/18 ACUTE ILLNESS 02/19/2014 Patient Education: Patient Medication Summary Completed 02/19/2014 Visit Plan: Add topamax Use excedrin sam colleen prn Start B12 sublingual 2500mcg daily 09/25/2013 Appointment: Tiara Morales WPtel: [address] [place] [address] ACUTE ILLNESS 09/25/2013 Patient Education: Patient Medication Summary Completed 09/25/2013 Appointment: Elizabeth Mccarthy WPtel: [address] [place], [place] [phone] ACUTE ILLNESS 08/08/2013 Patient Education: Patient Medication Summary Completed 08/08/2013 Visit Plan: Reports rash was present on knees. Has photo of redness/ irregular shaped rash on bilateral knees that appears to have since cleared. Reports that has been red and only mildly itchy for the last two weeks. Reports that had some finger numbness. Recent blood work reportedly performed at [facility] to evaluate for MS, mineral deficiency, etc in the spring for parasthesia. Will consider nerve conduction study if symptoms persist. 12/26/2012 Appointment: Reta Vines WPtel: [address] [place], [place] [phone] ACUTE ILLNESS 12/26/2012 Patient Education: Patient Medication Summary Completed 12/26/2012 Appointment: Tiara Morales WPtel: [address] [place], [place] [phone] 11/27 left message ACUTE ILLNESS 11/28/2012 Patient [...] symptoms/fever. 05/21/2012 Appointment: Reta Vines WPtel: [address] [place], [place] [phone] ACUTE ILLNESS 05/21/2012 Patient Education: Patient Medication Summary Completed 05/21/2012 Appointment: Tiara Morales WPtel: [address] [place], [place] [phone] 04/11 message with patient That needs to rescedule patient physical appt on 04/16 patient was walking dog she will call to reschedule appt PHYSICAL 04/16/2012 Appointment: Reta Vines WPtel: [address] [place], [place] [phone] ACUTE ILLNESS 09/13/2011 Patient Education: Patient Medication [...] are normal. 11/29/2010 Appointment: Reta Vines WPtel: [address] [place] [address] ACUTE ILLNESS 11/29/2010 Patient Education: Patient Medication Summary Completed 11/29/2010 Appointment: Reta Vines WPtel: [address] [place] [address] ACUTE ILLNESS 08/10/2009 Patient Education: Patient Medication Summary Completed 08/10/2009 Appointment: Tiara Morales WPtel: [address] [place] [address] ACUTE ILLNESS 08/09/2009 Referral: Jaquan Simon WPtel: [address] [place] [address] [id number] [place] Referral Initiated Referral: Chuck Fermin WPtel: [address] [place] [address] [address] [place] [address] [place] Referral Completed Referral: Katie Elliott WPtel: [facility] [address] [id number] [place] Referral Completed Instructions Comment . Needs [...] and leg i n May 2015 at [facility] and was negative Has not seen neurologist since 2nd neck surgery Add low dose lyrica at bedtime 50mg q HS . Proceed with MRI of cervical/thoracic w/wo contrast. Has plans to follow-up with her surgeon in [place] . Increase cymbalta to 60mg daily [...] HS Start PT . Patient going to [facility] this week end and go to walk-in clinic and try to get seen Suggested rheumatology and neurology as main foci and evaluations Using flexeril prn . Proceed with evaluation at [facility] for co mplete workup due to 2 [...] numbness. Recent blood work reportedly performed at [facility] to evaluate for MS, mineral deficiency, [...]
--- OUTSIDE RECORDS SUMMARY | 2019-08-19 01:16 | XMS REPORT | CCD ---
Author Author Venecia Morales D.O. Organization TIARA MORALES DO [facility] Address [address] [place] [address] Phone Care Team Providers Care Technical Asst Name Role Phone Tiara Morales D.O., PP Unavailable CCM Unavailable Summary Purpose Interface Exchange Insurance Providers Payer name Policy type / Coverage type Covered green party ID Effective Begin Date Effective End Date [employer] Commercial Insurance [id number] 2019 Unknown Family history Mother Diagnosis Age At Onset Heart disease Unknown Father Diagnosis Age At Onset Heart disease Unknown Social History Social History Element Codes Description Effective Dates Tobacco history SNOMED CT: 105861245 Nonsmoker 12/14/2010 Marital status Unknown Single 08/10/2009 [...] Instructions Augmentin 875 mg-125 mg tablet RxNorm: 080546 1 Tablet(s) PO BID 07/07/2018 Inactive prednisone 20 mg tablet RxNorm: 713875 2 Tablet(s) PO QD 06/28/2018 0 07/02/2018 Inactive Macrobid 100 mg capsule RxNorm: 840225 1 Capsule(s) PO BID 10/27/19 17 10/25/2016 Inactive fluconazole 100 mg tablet RxNorm: 011462 1 Tablet(s) PO QD 10/27/19 17 11/01/2016 Inactive Macrobid 100 mg capsule RxNorm: 634448 1 Capsule(s) PO BID 10/27/19 17 11/01/2016 Inactive fluconazole 100 mg tablet RxNorm: 171576 1 Tablet(s) PO QD 10/27/19 17 10/25/2016 Inactive Pepcid 20 mg tablet RxNorm: 768241 1 Tablet(s) PO BID 09/26/201604/04 Inactive cyanocobalamin (vit B-12) 1,000 mcg/mL injection solution Rx Norm: 009821 1 Milliliter(s) Inj every 2 weeks for 3 months 04/21/2016 04/22/2018 [place] ctive cyanocobalamin (vit B-12) 1,000 mcg/mL injection solution Rx Norm: 213582 1 Milliliter(s) Inj every 2 weeks for 3 months 04/21/2016 04/20/2016 [place] [facility] Bactrim DS 800 mg-160 mg tablet RxNorm: 584346 1 Tablet(s) PO BID 0 01/24/2016 01/23/2016 Inactive Bactrim DS 800 mg-160 mg tablet RxNorm: 539665 1 Tablet(s) PO BID 0 01/24/2016 01/30/2016 Inactive Cymbalta 60 mg capsule,delayed release RxNorm: 465133 1 Capsule (s) PO QD 01/11/2016 04/19/2016 Inactive Lyrica 50 mg capsule RxNorm: 878978 1 Capsule(s) PO QHS 12/21/2015 Inactive cyclobenzaprine 10 mg tablet RxNorm: 377528 1 Tablet(s) PO TID as needed for muscle spasm 09/27/2015 12/20/2015 Inactive Medrol (Mane) 4 mg tablets in a dose pack RxNorm: 824400 Tablet(s) PO As Directed 09/27/2015 12/20/2015 Inactive Cymbalta 60 mg capsule,delayed release RxNorm: 619537 1 Capsule (s) PO QD 08/26/2015 10/24/2015 Inactive Cymbalta 30 mg capsule,delayed release RxNorm: 662203 1 Capsule (s) PO QAM 07/27/2015 08/25/2015 Inactive cyclobenzaprine 10 mg tablet RxNorm: 688295 1 Tablet(s) PO Q8H as needed for muscle spasm 05/05/2015 06/07/2015 Inactive mupirocin 2 % topical ointment RxNorm: 280684 TOP 03/29/2015 1 07/05/2014 Inactive gabapentin 600 mg tablet RxNorm: 040736 1 Tablet(s) PO QHS 02/19/20 15 05/04/2015 Inactive Cipro 500 mg tablet RxNorm: 921424 1 Tablet(s) PO BID 02/02/201501/04 Inactive Cipro 500 mg tablet RxNorm: 985905 1 Tablet(s) PO BID 02/02/2015 0912/2014 Inactive Zoloft 50 mg tablet RxNorm: 096269 1 Tablet(s) PO QHS f or 1 week then increase to 1 po q HS 01/21/2015 05/04/2015 Inactive Zoloft 50 mg tablet RxNorm: 086528 1/2 Tablet(s) PO QHS for 1 week then increase to 1 po q HS 11/09/2014 01/06/2015 Inactive hydrocodone 5 mg-acetaminophen 325 mg tablet RxNorm: 096705 1 T ablet(s) PO 10/01/2014 05/04/2015 Inactive Zorvolex 18 mg capsule RxNorm: 5074116 1 Capsule(s) PO TID 09/23/1910/06/2014 Inactive Medrol (Mane) 4 mg tablets in a dose pack RxNorm: 371487 Tablet(s) P O 09/16/2014 09/21/2014 Inactive Flexeril 10mg tablet RxNorm: 1 Tablet(s) PO Q8H 09/16/2014 5 Inactive Cyanacobalamin 1,000 mcg/mL injection solution RxNorm: 69353 4 1 Milliliter(s) Inj every 2 weeks 03/05/2014 10/06/2014 Inactive Mobic 15 mg tablet RxNorm: 460618 1 Tablet(s) PO QD 02/19/20142013 Inactive Septra DS 800 mg-160 mg tablet RxNorm: 089121 1 Tablet(s) PO BI D antibiotic 10/23/2013 11/05/2013 Inactive Topamax 50 mg tablet RxNorm: 035890 1 Tablet(s) PO QHS 09/25/2013 Inactive phentermine 37.5 mg capsule RxNorm: 503839 1 Capsule(s) PO QD 08/0809/06/2013 Inactive Zithromax 250 mg tablet RxNorm: 973487 2 Tablet(s) PO QD 11/28/2012 0 12/04/2012 Inactive prednisone 20 mg tablet RxNorm: 733064 1 Tablet(s) PO BID 11/28/2012 12/04/2012 Inactive Septra DS 800 mg-160 mg tablet RxNorm: 906547 1 Tablet( s) PO BID take one tablet twice daily. antibiotic 05/21/2012 06/03/2012 Inactive Lo Loestrin Fe 1 mg-10 mcg (24)/10 mcg (2) Tab RxNorm: 32640 84 1 Tablet(s) PO QD 09/13/2011 09/21/2014 Inactive Ultram 50 mg tablet RxNorm: 599960 1 Tablet(s) PO Q4H as needed for pain No Start Date 09/30/2014 Inactive Prilosec OTC 20 mg tablet,delayed release RxNorm: 468864 1 Tabl et(s) PO QD No Start Date 06/27/2018 Inactive paroxetine 30 mg tablet RxNorm: 0229871 1 Tablet(s) PO QD No Start Date 06/27/2018 Inactive Valium 5 mg tablet RxNorm: 550591 1 Tablet(s) PO QHS No Start Date Inactive Medrol (Mane) 4 mg tablets in a dose pack RxNorm: 927412 Tablet(s) PO As Directed No Start Date 09/26/2015 Inactive cyclobenzaprine 10 mg tablet RxNorm: 330468 1 Tablet(s) PO TID as needed for muscle spasm No Start Date 09/26/2015 Inactive Robaxin 750 mg tablet RxNorm: 430523 1 Tablet(s) PO Q4H as needed for muscle spasm No Start Date 12/29/2014 Inactive phentermine 30 mg capsule RxNorm: 485020 1 Capsule(s) PO QAM No Sta rt Date 02/18/2014 Inactive Cyanacobalamin 1,000 mcg/mL injection solution RxNorm: 52248 4 1 Milliliter(s) Inj every 2 weeks No Start Date 03/04/2014 Inactive cyclobenzaprine 10 mg tablet RxNorm: 680379 1 Tablet(s) PO Q8H as needed for muscle spasm No Start Date 05/04/2015 Inactive hydrocodone 5 mg-acetaminophen 325 mg tablet RxNorm: 840965 1 Tablet(s) PO as needed for pain No Start Date 04/19/2016 Inactive Vitamin D3 2,000 unit tablet RxNorm: 442809 1 Tablet(s) PO QD No St art Date 04/22/2018 Inactive hydrocodone 10 mg-acetaminophen 325 mg tablet RxNorm: 646134 1 Tablet(s) PO Q4H as needed for pain No Start Date 06/07/2015 Inactive Medication Administered No Medication Administered data Immunizations No Immunization data Results No Results data Procedures Procedure Codes Date TB INTRADERMAL TEST CPT-4: 86767 05/08/2018 URINALYSIS NONAUTO W/O SCOPE CPT-4: 79498 10/25/2016 URINE CULTURE/ COLONY COUNT CPT-4: 34831 10/25/2016 URINALYSIS NONAUTO W/O SCOPE CPT-4: 01419 07/25/2016 URINALYSIS NONAUTO W/O SCOPE CPT-4: 91697 02/28/2016 URINE CULTURE/ COLONY COUNT CPT-4: 86148 02/18/2015 URINALYSIS NONAUTO W/O SCOPE CPT-4: 36619 02/02/2015 URINE CULTURE/ COLONY COUNT CPT-4: 37742 02/02/2015 THER/PROPH/DIAG INJ SC/IM CPT-4: 70063 03/13/2014 METHYLPREDNISOLONE 40 MG INJ CPT-4: J1030 03/13/2014 TRIAMCINOLONE ACET INJ NOS CPT-4: J3301 03/13/2014 THER/PROPH/DIAG INJ SC/IM CPT-4: 54675 02/19/2014 VITAMIN B12 INJECTION CPT-4: J3420 02/19/2014 THER/PROPH/DIAG INJ SC/IM CPT-4: 86823 11/28/2012 METHYLPREDNISOLONE 40 MG INJ CPT-4: J1030 11/28/2012 TRIAMCINOLONE ACET INJ NOS CPT-4: J3301 11/28/2012 URINALYSIS NONAUTO W/O SCOPE CPT-4: 08100 09/13/2011 URINE TEST CPT-4: 34098 09/13/2011 URINALYSIS NONAUTO W/O SCOPE CPT-4: 63908 08/10/2009 Vital Signs Date Vital 08/12/2019 Blood Pressure 1: 116/80 Code: 8480-6 BMI: 28.4 Code: 80728-1 Heart Rate 1: 92 bpm Height: 5'9" Respiratory Rate: 20 bpm SpO2: 96% Tempera ture: 36.2 (C) / 97.1 (F) Weight: 192 lbs 12/11/2018 Blood Pressure 1: 114/70 Code: 8480-6 BMI: 29.2 Code: 75274-9 Heart Rate 1: 92 bpm Height: 5'9" [...] 1: 126/82 Code: 8480-6 BMI: 28.6 Code: 96586-4 Heart Rate 1: 100 bpm Height: 5'9" [...] 1: 112/78 Code: 8480-6 BMI: 28.2 Code: 94599-6 Heart Rate 1: 76 bpm Height: 5'9" [...] 1: 114/78 Code: 8480-6 BMI: 27.0 Code: 96051-7 Heart Rate 1: 76 bpm Height: 5'10" Respiratory Rate: 20 bpm Temperature: 36 .8 (C) / 98.2 (F) Weight: 188 lbs 06/08/2015 Blood Pressure 1: 132/80 Code: 8480-6 Heart Rate 1: 88 bpm Height: 5'10" Respiratory Rate: 20 bpm Temperature: 36.6 (C) / 97.9 (F) We ight: 05/13/2015 Blood Pressure 1: 104/70 Code: 8480-6 BMI: 26.3 Code: 98341-0 Heart Rate 1: 112 bpm Height: 5'10" Respiratory Rate: 20 bpm Temperature: 36 .9 (C) / 98.5 (F) Weight: 183 lbs 05/06/2015 Blood Pressure 1: 112/68 Code: 8480-6 art Rate 1: 70 bpm 05/05/2015 Blood Pressure 1: 136/78 Code: 8480-6 BMI: 35.7 Code: 02702-1 Heart Rate 1: 116 bpm Height: 5' Respiratory Rate: 20 bpm Temperature: 36 .6 (C) / 97.8 (F) Weight: 183 lbs 03/29/2015 Blood Pressure 1: 108/62 Code: 8480-6 BMI: 26.8 Code: 60098-8 Heart Rate 1: 78 bpm Height: 5'10" Respiratory Rate: 22 bpm Temperature: 36 .6 (C) / 97.9 (F) Weight: 187 lbs 02/18/2015 Blood Pressure 1: 126/70 Code: 8480-6 BMI: 25.3 Code: 82435-9 Heart Rate 1: 92 bpm Height: 5'10" Respiratory Rate: 20 bpm Temperature: 37 .2 (C) / 99.0 (F) Weight: 176 lbs 02/10/2015 Blood Pressure 1: 134/86 Code: 8480-6 BMI: 25.3 Code: 23240-7 Heart Rate 1: 108 bpm Height: 5'10" Respiratory Rate: 20 bpm Temperature: 37 .7 (C) / 99.9 (F) Weight: 176 lbs 02/04/2015 Blood Pressure 1: 126/78 Code: 8480-6 Heart Rate 1: 104 bpm Respiratory Rate: 20 bpm Temperature: 36.7 (C) / 98.1 (F) Weight: 176 lbs 12/30/2014 Blood Pressure 1: 110/68 Code: 8480-6 BMI: 25.7 Code: 66475-8 Heart Rate 1: 72 bpm Height: 5'10" Respiratory Rate: 18 bpm Temperature: 36 .2 (C) / 97.1 (F) Weight: 179 lbs 11/09/2014 Blood Pressure 1: 112/78 Code: 8480-6 BMI: 25.7 Code: 67716-6 Heart Rate 1: 92 bpm Height: 5'9" Respiratory Rate: 20 bpm Temperature: 36 .6 (C) / 97.9 (F) Weight: 174 lbs 10/07/2014 Blood Pressure 1: 118/78 Code: 8480-6 BMI: 26.6 Code: 35947-0 Heart Rate 1: 108 bpm Height: 5'9" Respiratory Rate: 20 bpm Temperature: 36 .6 (C) / 97.8 (F) Weight: 180 lbs 10/01/2014 Blood Pressure 1: 138/88 Code: 8480-6 BMI: 26.6 Code: 03068-8 Heart Rate 1: 98 bpm Height: 5'9" Respiratory Rate: 22 bpm Temperature: 36 .4 (C) / 97.6 (F) Weight: 180 lbs 09/22/2014 Blood Pressure 1: 110/74 Code: 8480-6 BMI: 25.8 Code: 85171-0 Heart Rate 1: 94 bpm Height: 5'10" Respiratory Rate: 18 bpm Temperature: 36 .7 (C) / 98.1 (F) Weight: 180 lbs 09/16/2014 Blood Pressure 1: 126/80 Code: 8480-6 Heart Rate 1: 96 bpm Height: Respiratory Rate: 20 bpm Temperature: 36.8 (C) / 98.2 (F) Weight: 06/12/2014 Blood Pressure 1: 110/64 Code: 8480-6 BMI: 25.8 Code: 38853-5 Heart Rate 1: 84 bpm Height: 5'10" Respiratory Rate: 22 bpm Temperature: 36 .6 (C) / 97.8 (F) Weight: 180 lbs 03/13/2014 Blood Pressure 1: 112/ Code: 8480-6 BMI: 26.9 Code: 22371-6 Heart Rate 1: 76 bpm Height: 5'8" Respiratory Rate: 20 bpm Temperature: 36 .7 (C) / 98.0 (F) Weight: 177 lbs 02/19/2014 Blood Pressure 1: 112 Code: 8480-6 BMI: 26.9 Code: 85245-4 Heart Rate 1: 76 bpm Height: 5'8" [...] 1: 135/86 Code: 8480-6 BMI: 24.3 Code: 25619-7 Heart Rate 1: 96 bpm Height: 5'8" Respiratory Rate: 20 bpm Temperature: 36 .7 (C) / 98.1 (F) Weight: 160 lbs 11/28/2012 Blood Pressure 1: 124/70 Code: 8480-6 BMI: 24.2 Code: 23249-6 Heart Rate 1: 92 bpm Height: 5'8" Respiratory Rate: 20 bpm Temperature: 36 .4 (C) / 97.6 (F) Weight: 159 lbs 05/21/2012 Blood Pressure 1: 100/64 Code: 8480-6 BMI: 26.6 Code: 96952-1 Heart Rate 1: 68 bpm Height: 5'8" Temperature: 37.2 (C) / 99.0 (F) Weight: 175 lbs 09/13/2011 Blood Pressure 1: 106/64 Code: 8480-6 BMI: 25.5 Code: 13321-4 Heart Rate 1: 74 bpm Height: 5'8" Temperature: 36.6 (C) / 97.8 (F) Weight: 168 lbs 11/29/2010 Blood Pressure 1: 110/58 Code: 8480-6 BMI: 25.7 Code: 49463-9 Heart Rate 1: 74 bpm Height: 5'8" Temperature: 36.8 (C) / 98.2 (F) Weight: 169 lbs 08/10/2009 Blood Pressure 1: 118/64 Code: 8480-6 BMI: 24.8 Code: 69868-6 Heart Rate 1: 80 bpm Height: 5'9" [...] Care 1 month ago and diagnosed with [place] follow up 07/25/2016 Recurrent- intereste d in [...] pain Encounters Encounter Performer Location Codes Date ([id number]) OFFICE/OUTPATIENT VISIT EST Diagnosis: Chest wall pain[ICD10: R07.89] Diagnosis: Costochondritis, acute[ICD10: M94.0] Diagnosis: Tear of right retina without detachment[ICD10: H33.301] Tiara MORALES ENJORE CPT-4: 35677 08/12/2019 ([id number]) OFFICE/OUTPATIENT VISIT EST Diagnosis: Spontaneous ecchymoses[ICD10: R23.3] Diagnosis: Other fatigue[ICD10: R53.83] Tiara MORALES ENJORE CPT-4: 46731 12/11/2018 ([id number]) OFFICE/OUTPATIENT VISIT EST Diagnosis: Left upper quadrant pain[ICD10: R10.12] Tiara MORALES ENJORE CPT-4: 05456 08/14/2018 ([id number]) OFFICE/OUTPATIENT VISIT EST Diagnosis: Acute sinusitis, unspecified[ICD10: J01.90] Gabrielle MORALES DO [facility] CPT-4: 92332 06/28/2018 ([id number]) NURSE/OUTPATIENT VISIT EST Diagnosis: SCREENING-PULMONARY TB[ICD10: Z11.1] Tiara MORALES DO [facility] CPT-4: 75727 05/10/2018 ([id number]) NURSE/OUTPATIENT VISIT EST Diagnosis: SCREENING-PULMONARY TB[ICD10: Z11.1] Tiara MORALES DO [facility] CPT-4: 95770 05/08/2018 ([id number]) PREV VISIT EST AGE 18-39 Diagnosis: Encounter for general adult medical examination without abnormal findings[ICD10: Z00.00] Diagnosis: Left upper quadrant pain[ICD10: R10.12] Tiara MORALES DO [facility] CPT-4: 33802 04/23/2018 ([id number]) OFFICE/OUTPATIENT VISIT EST Diagnosis: Dysuria[ICD10: R30.0] Tiara MORALES DO [facility] CPT-4: 66086 10/25/2016 ([id number]) OFFICE/OUTPATIENT VISIT EST Diagnosis: Left upper quadrant pain[ICD10: R10.12] Tiara MORALES DO [facility] CPT-4: 72888 09/26/2016 ([id number]) OFFICE/OUTPATIENT VISIT EST Diagnosis: Urinary tract infection, site not specified[ICD10: N39.0] Tiara MORALES DO [facility] CPT-4: 18652 07/25/2016 ([id number]) OFFICE/OUTPATIENT VISIT EST Diagnosis: Deficiency of other specified B group vitamins[ICD10: E53.8] Diagnosis: Polyneuropathy, unspecified[ICD10: G62.9] Diagnosis: Other lack of coordination[ICD10: R27.8] Tiara MORALES DO [facility] CPT-4: 56389 04/20/2016 ([id number]) OFFICE/OUTPATIENT VISIT EST Diagnosis: Generalized enlarged lymph nodes[ICD10: R59.1] Diagnosis: Dysuria[ICD10: R30.0] Ashleylucio TALAVERALINE Jenna MORALES DO [facility] CPT-4: 89660 02/28/2016 ([id number]) OFFICE/OUTPATIENT VISIT EST Diagnosis: Polyneuropathy, unspecified[ICD10: G62.9] Tiara TALAVERALINE DevanLauren MARIIA CLEMONS [facility] CPT-4: 21397 12/21/2015 OFFICE/OUTPATIENT VISIT EST Diagnosis: Radiculopathy, cervical region[ICD10: M54.12] Diagnosis: Neuralgia and neuritis, unspecified[ICD10: M79.2] Elizabeth MORALES DO [facility] CPT-4: 80178 09/27/2015 OFFICE/OUTPATIENT VISIT EST Diagnosis: Other cervical disc displacement, 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] Diagnosis: Radiculopathy, cervical region[ICD10: M54.12] Diagnosis: Generalized anxiety disorder[ICD10: F41.1] Tiara Geraspencer TIARA DevanLauren MARIIA [facility] CPT-4: 41638 08/26/2015 ([id number]) OFFICE/OUTPATIENT VISIT EST Diagnosis: Melanocytic nevi, unspecified[ICD10: D22.9] Diagnosis: Acute stress reaction[ICD10: F43.0] Tiara SULTANA DevanLauren MARIIA [facility] CPT-4: 12640 07/27/2015 ([id number]) OFFICE/OUTPATIENT VISIT EST Diagnosis: Vitamin D deficiency, unspecified[ICD10: E55.9] Diagnosis: Polyneuropathy, unspecified[ICD10: G62.9] Tiara VELARDE DevanLauren AMRIIA [facility] CPT-4: 46604 06/08/2015 OFFICE/OUTPATIENT VISIT EST Diagnosis: Mononeuropathy, 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] Diagnosis: Cervicalgia[ICD10: M54.2] Tiara VELARDE DevanLauren GERA WILSON [facility] CPT-4: 93562 05/13/2015 OFFICE/OUTPATIENT VISIT EST Diagnosis: Other cervical disc displacement, 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] Diagnosis: Intervertebral disc disorders with myelopathy, 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] [facility]: 97029 05/05/2015 OFFICE/OUTPATIENT VISIT EST Diagnosis: Insect bite (nonvenomous) of breast, right breast, initial encounter[ICD10: S20.161A] Elizabeth AmbroseKassandramu MORALES [facility] CPT-4: 46446 03/29/2015 ([id number]) OFFICE/OUTPATIENT VISIT EST Diagnosis: DISTURBANCE OF SKIN SENSATION (Paresthesia)[ICD9: 782.0] Diagnosis: MUSCLE WEAKNESS-GENERAL[ICD9: 728.87] Tiara MORALES [facility] CPT-4: 22583 02/18/2015 ([id number]) OFFICE/OUTPATIENT VISIT EST Diagnosis: URINARY TRACT INFECTION[ICD9: 599.0] Diagnosis: DISTURBANCE OF SKIN SENSATION (Paresthesia)[ICD9: 782.0] [facility] CPT-[facility]: 03843 02/10/2015 ([id number]) OFFICE/OUTPATIENT VISIT EST Diagnosis: DISTURBANCE OF SKIN SENSATION (Paresthesia)[ICD9: 782.0] Diagnosis: SCIATICA[ICD9: 724.3] Diagnosis: URINARY TRACT INFECTION[ICD9: 599.0] Diagnosis: CEPHALGIA[ICD9: 784.0] Tiara VERGARA [facility] CPT-4: 71123 02/04/2015 ([id number]) OFFICE/OUTPATIENT VISIT EST Diagnosis: HEMATURIA NOS[ICD9: 599.70] Tiara Bossrexshane TALAVERATIARA Jenna Mcdowell [facility] CPT-4: 09891 02/02/2015 OFFICE/OUTPATIENT VISIT EST Diagnosis: SCIATICA[ICD9: 724.3] Diagnosis: ANXIETY STATE NOS[ICD9: 300.00] Diagnosis: ABNORMAL WEIGHT GAIN[ICD9: 783.1] Elizabeth AmbroseKassandradebirosio ALICIA MORALES [facility] CPT-4: 56015 12/30/2014 ([id number]) OFFICE/OUTPATIENT VISIT EST Diagnosis: S/P cervical spinal fusion[ICD9: V45.4] Diagnosis: SCIATICA[ICD9: 724.3] Diagnosis: ANXIETY STATE NOS[ICD9: 300.00] Tiara Gerarexshane JACOBSTIARA DevanLauren MARIIA [facility] CPT-4: 39469 11/09/2014 ([id number]) OFFICE/OUTPATIENT VISIT EST Diagnosis: Degenerative disc disease, cervical[ICD9: 722.4] Diagnosis: Herniated disc, cervical[ICD9: 722.0] Diagnosis: Radiculopathy of arm[ICD9: 723.4] Tiara Krishnanshane JACOBSALICIAMARVIN MORALES DO [facility] CPT-4: 79058 10/07/2014 ([id number]) OFFICE/OUTPATIENT VISIT EST Diagnosis: CERVICALGIA[ICD9: 723.1] Diagnosis: Trapezius muscle spasm[ICD9: 728.85] Diagnosis: Radiculopathy of arm[ICD9: 723.4] Elizabeth AmbroseEvelina VARGAS Julius HartmanLauren MARII[facility] CPT-4: 27052 10/01/2014 ([id number]) OFFICE/OUTPATIENT VISIT EST Diagnosis: SCIATICA[ICD9: 724.3] Diagnosis: Radiculopathy of arm[ICD9: 723.4] Tiara Geraspencer VARGAS Julius HartmanLauren [facility] CPT-4: 48622 09/22/2014 ([id number]) OFFICE/OUTPATIENT VISIT EST Diagnosis: Shoulder pain, acute[ICD9: 719.41] Diagnosis: Arm paresthesia, left[ICD9: 782.0] Diagnosis: CERVICALGIA[ICD9: 723.1] Elizabeth AmbroseEvelina VELARDE DevanLauren [facility] CPT-4: 54177 09/16/2014 OFFICE/OUTPATIENT VISIT EST Diagnosis: Ingrown hair[ICD9: 704.8] Diagnosis: KELOID SCAR[ICD9: 701.4] Elizabeth AmbroseEvelina VELARDE DevanLauren [facility] CPT-4: 66944 06/12/2014 ([id number]) OFFICE/OUTPATIENT VISIT EST Diagnosis: B12 deficiency[ICD9: 266.2] Tiara ARVIZU [facility] CPT-4: 65064 03/18/2014 OFFICE/OUTPATIENT VISIT EST Diagnosis: SINUSITIS, ACUTE[ICD9: 461.9] Alannah [facility]EL[facility]DE [facility] CPT-[facility]: 41241 03/13/2014 ([id number]) OFFICE/OUTPATIENT VISIT EST Diagnosis: Numbness and tingling[ICD9: 782.0] Diagnosis: Lateral epicondylitis[ICD9: 726.32] Diagnosis: B12 deficiency[ICD9: 266.2] Tiara ARVIZU [facility] CPT-4: 70899 02/19/2014 ([id number]) OFFICE/OUTPATIENT VISIT EST Diagnosis: MIGRAINE NOS/NOT INTRCBL[ICD9: 346.90] Diagnosis: Numbness and tingling[ICD9: 782.0] Tiara West GERANDER [facility] CPT-4: 46948 09/25/2013 OFFICE/OUTPATIENT VISIT EST Diagnosis: Contact dermatitis and eczema[ICD9: 692.9] Diagnosis: ABNORMAL WEIGHT GAIN[ICD9: 783.1] Elizabeth West GERANDER [facility] CPT-4: 43068 08/08/2013 OFFICE/OUTPATIENT VISIT EST Diagnosis: Rash[ICD9: 782.1] Diagnosis: Numbness and tingling[ICD9: 782.0] Reta West GERANDER [facility] CPT-4: 03494 12/26/2012 ([id number]) OFFICE/OUTPATIENT VISIT EST Diagnosis: ALLERGIC RHINITIS[ICD9: 477.9] Diagnosis: SINUSITIS, ACUTE[ICD9: 461.9] Tiara MORALES [facility] CPT-4: 02231 11/28/2012 OFFICE/OUTPATIENT VISIT EST Diagnosis: SINUSITIS, ACUTE[ICD9: 461.9] Diagnosis: FEBRILE ILLNESS[ICD9: 780.60] Tiara MORALES [facility] CPT-4: 83937 05/21/2012 OFFICE/OUTPATIENT VISIT EST Diagnosis: ABDOMINAL PAIN[ICD9: 789.00] Diagnosis: Menstrual cramps[ICD9: 625.3] Reta MORALES [facility] CPT-4: 25402 09/13/2011 OFFICE/OUTPATIENT VISIT EST Tiara WILSON [facility] CPT- 4: 82507 11/29/2010 ([id number]) OFFICE/OUTPATIENT VISIT, EST Tiara MORALES DO [facility] CPT-4: 64558 08/10/2009 Plan of Care Planned Activity Notes [...] : R23.3 12/11/2018 Appointment: Tiara Morales WPtel: [address] [place] [address] FOLLOW UP 12/11/2018 Visit Diagnosis Plan: Left [...] : R10.12 08/14/2018 Appointment: Tiara Morales WPtel: [address] [place] [address] ACUTE ILLNESS 08/14/2018 Care Plan: Referral Order SNOMED-CT : [id number] Pending 08/14/2018 Care Plan: A1C HPLC LOINC : 93779-4 Pending 08/14/2018 Visit Diagnosis Plan: Acute sinusitis, unspecified Dis cussion: due to length of symptoms, patient started on augmentin and prednisone. instructed to take probiotics or yogurt to help prevent gi upset or yeast infection. call or rtc with new or worsening symptoms or if continues past antibiotics. ICD-9 : 461.9 ICD-10 : J01.90 06/28/2018 Appointment: Gabrielle Carter [address] [place] [address] ACUTE ILLNESS 06/28/2018 Patient Education: prednisone- [employer] Coupon [id number] [email or web address]/[email or web address]/[email or web address] Completed 06/28/2018 Appointment: Tiara Morales WPtel: [address] [place], [place] [phone] US TB Test read 05/10/2018 Appointment: Tiara Morales WPtel: [address] [place] [address] US TB Test 05/08/2018 Visit Diagnosis Plan: Left upper quadrant pain Discuss ion: Has had full lab workup, CXR, Abdominal US and EGD and has CT scan of abdomen/pelvis tomorrow Discussed Xifaxin trial pending CT scan results Also discussed Colonoscopy if pain persists after xifaxin therapy ICD-9 : 789.02 ICD-10 : R10.12 04/23/2018 Visit Diagnosis Plan: Encounter for [facility] medical examination without abnormal findings Discussion: Foster care form filled out Will return next week for TB test ICD-9 : V70.9 ICD-10 : Z00.00 04/23/2018 Appointment: Tiara Morales WPtel: [address] [place] [address] [place] PHYSICAL 04/23/2018 Appointment: Tiara Morales WPtel: [address] [place], [place] [phone] [place] UA 10/25/2016 Patient Education: Patient Medication Summary Completed 10/25/2016 Appointment: Tiara Morales WPtel: [address] [place], [place] [phone] [place] 10/16 canceled `sl, patient in hospital per Dr Mcdowell (km) CANCELED 10/17/2016 Patient Education: Patient Medication Summary Completed 10/03/2016 Care Plan: CT ABDOMEN W/O DYE LOINC : 36 103-0 Pending 10/03/2016 Appointment: Tiara Morales WPtel: [address] [place], [place] [phone] [place] 09/25 rescheduled~sl RESCHEDULED 10/02/2016 Visit Diagnosis Plan: Left upper quadrant pain Discuss ion: Pepcid 20 mg PO BID Hold on CT scan of abdomen until fwup Diet: GERD diet Follow Up: 2 weeks ICD-9 : 789.02 ICD-10 : R10.12 09/26/2016 Appointment: Tiara Morales WPtel: [address] [place], [place] [phone] [place] FOLLOW UP 09/26/2016 Patient Education: Patient Medication Summary Completed 09/26/2016 Appointment: Tiara Morales WPtel: [address] [place], [place] [phone] [place] CANCELED 09/11/2016 Appointment: Tiara Morales WPtel: [address] [place], [place] [phone] [place] 08/10 lm `sl 08/14 canceled feeling better~sl CANCE LED 08/14/2016 Visit Diagnosis Plan: Urinary tract infection, site no t specified Discussion: Stop Augmentin Hydrate See urology Large blood in urine likely from menses ICD-9 : 599.0 ICD-10 : N39.0 07/25/2016 Appointment: Tiara Morales WPtel: [address] [place], [place] [phone] [place] 07/24 confirmed`sl ACUTE ILLNESS 07/25/2016 Patient Education: Patient Medication Summary Completed 07/25/2016 Appointment: Tiara Morales WPtel: [address] [place], [place] [phone] [place] 06/20 confirmed~sl 06/20 Canceled~sl CANCELED 06/21/2016 Referral: Katie Elliott WPtel: [facility] [address] [id number] [place] Referral Appointment Completed 06/06/2016 Patient Education: Patient Medication Summary Completed 04/21/2016 Care Plan: A1C HPLC LOINC : 78476-3 Pending 04/21/2016 Visit Plan: Needs to go back to neurolog y Check TSH, Free T4, B12, iron, CMP, Vit D 04/20/2016 Appointment: Tiara Morales WPtel: [address] [place] [address] ACUTE ILLNESS 04/20/2016 Patient Education: Patient Medication Summary Completed 04/20/2016 Patient Education: Patient Medication Summary Completed 03/09/2016 Care Plan: US EXAM CHEST Soft Tissue LOINC : 65013-6 Pending 03/09/2016 Appointment: Tiara Morales WPtel: [address] [place] [address] [place] 02/28 was able to be seen sooner~sl RESCHEDULED 03/01/2016 Visit Plan: Office dip is wnl, no cultur e sent CBC today to look for infectious process If negative, can consider soft tissue US Would order mammogram/breast US as well but she is having free mammo at work in the next 1-2 weeks 02/28/2016 Appointment: Ashley Olivo [address] [place] [address] ACUTE ILLNESS 02/28/2016 Patient Education: Patient Medication Summary Completed 02/28/2016 Appointment: Tiara Morales WPtel: [address] [place] [address] [place] RESCHEDULED 01/24/2016 Visit Plan: Patient had EMG on right arm and leg in May 2015 at [facility] and was negative Has not seen neurologist since 2nd neck surgery Add low dose lyrica at bedtime 50mg q HS 12/21/2015 Appointment: Tiara Morales WPtel: [address] [place] [address] 12/19 confirmed ~sl ACUTE ILLNESS 12/21/2015 Patient Education: Patient Medication Summary Completed 12/21/2015 Patient Education: Lyrica - 18+ - No MA [place] Completed 12/21/2015 Appointment: Tiara Morales WPtel: [address] [place] [address] 10/19 confirmed~sl...canceled, something unavaoidable came up.~lb CANCELED 10/21/2015 Visit Plan: Proceed with MRI of cervical /thoracic w/wo contrast. Has plans to follow-up with her surgeon in [place], [place] 09/27/2015 Appointment: Elizabeth Mccarthy WPtel: [address] [place] [address] ACUTE ILLNESS 09/27/2015 Patient Education: Patient Medication Summary Completed 09/27/2015 Care Plan: MRI NECK SPINE W/O DYE LOINC : 03303-5 Pending 09/27/2015 Care Plan: MRI CHEST SPINE W/O DYE LOINC : 90872-2 Pending 09/27/2015 Visit Plan: Increase cymbalta to 60mg da xiao Discussed updated MRI or EMG due to ongoing left arm numbness 08/26/2015 Appointment: Tiraa Morales WPtel: [address] [place] [address] 08/24 confirmed ~sl FOLLOW UP 08/26/2015 Patient Education: Patient Medication Summary Completed 08/26/2015 Patient Education: [facility] - Saving AutoInj - Cymbalta - 18-64 - Dynamic Portal ID Completed 08/26/2015 Visit Plan: Discussed establishing with Dermatology to remove moles and monitor skin lesions Trial of cymbalta 30mg daily for both depression and pain/neuropathy Going to counselor 07/27/2015 Appointment: Tiara Morales WPtel: [address] [place], [place] [phone] 07/13 this was origanally a 1mth FWUP [...] Start PT 06/08/2015 Appointment: Tiara Morales WPtel: [address] [place], [place] [phone] 06/08 lm ~sl FOLLOW UP 06/08/2015 Patient Education: Patient Medication Summary Completed 06/08/2015 Visit Plan: Patient going to [facility] this weekend and go to walk-in clinic and try to get seen Suggested rheumatology and neurology as main foci and evaluations Using flexeril prn 05/13/2015 Appointment: Tiara Morales WPtel: [address] [place] [address] ACUTE ILLNESS 05/13/2015 Patient Education: Patient Medication Summary Completed 05/13/2015 Appointment: Tiara Morales WPtel: [address] [place] [address] BP CHECK 05/06/2015 Patient Education: Patient Medication Summary Completed 05/06/2015 Visit Plan: Proceed with evaluation at [facility] for complete workup due to 2 cervical spinal compressions within 6mos as well as neuropathy, cephalgia--suspect connective tissue disease etiology or metabolic bone process 05/05/2015 Appointment: Tiara Morales WPtel: [address] [place] [address] 05/04/15 appt confirmed cn FOLLOW UP 05/05 Patient Education: Patient Medication Summary Completed 05/05/2015 Visit Plan: Warm moist heat to area twic e daily Apply Mupirocin 2% oint. to area bid 03/29/2015 Appointment: Elizabeth Mccarthy WPtel: [address] [place], [place] [phone] ACUTE ILLNESS 03/29/2015 Patient Education: Patient Medication Summary Completed 03/29/2015 Visit Plan: Check lab and proceed with E MGs of upper and lower extremities Check CBC, CMP, TSH, free T4, B12, ESR, CRP, SHERYL Increase gabapentin to 600mg q HS Starting PT as well 02/18/2015 Appointment: Tiara Morales WPtel: [address] [place], [place] [phone] 02/17/15 confirmed FOLLOW UP 02/18/2015 Patient Education: Patient Medication Summary Completed 02/18/2015 Patient Education: Patient Medication Summary Completed 02/15/2015 Visit Plan: Sees neurology tomorrow Will proceed with labwork and EMGs MRI results reviewed Finish abx Continue gabapentin 02/10/2015 Appointment: Tiara Morales WPtel: [address] [place], [place] [phone] FOLLOW UP 02/10/2015 Patient Education: Patient Medication Summary Completed 02/10/2015 Visit Plan: Finish abx Start Neurontin 3 00mg q HS Proceed with EMGS of UE and LEs--patient scheduled to see neurology next week Recheck 3-4weeks pending neurology evaluation 02/04/2015 Appointment: Tiara Morales WPtel: [address] [place], [place] [phone] 02/02/15 appt confirmed cn FOLLOW UP 02/04 Patient Education: Patient Medication Summary Completed 02/04/2015 Appointment: Tiara Morales WPtel: [address] [place], [place] [phone] [facility] 02/02/2015 Patient Education: Patient Medication Summary Completed 02/02/2015 Appointment: Elizabeth Mccarthy WPtel: [address] [place], [place] [phone] FOLLOW UP 01/13/2015 Visit Plan: restart Zoloft 1/2 tablet x 7 days then 1 tablet daily Currently doing Physical Therapy for low back pain. Appt. with ortho on 01/07/15 Hold on restarting Phentermine until stable on Zoloft 12/30/2014 Appointment: Elizabeth Mccarthy WPtel: [address] [place], [place] [phone] 12/29/2014 VM-roman...12/29 appt confirmed cn FOLLO W UP 12/30/2014 Patient Education: Patient Medication Summary Completed 12/30/2014 Patient Education: Patient Medication Summary Completed 12/16/2014 Appointment: Tiara Morales WPtel: [address] [place], [place] [phone] 12/03 vm cn 12/07 NO Show cn...called [...] Vit D 11/09/2014 Appointment: Tiara Morales WPtel: [address] [place], [place] [phone] 11/06 confirmed -mf FOLLOW UP 11/09/2014 Patient Education: Patient Medication Summary Completed 11/09/2014 Visit Plan: MRI results discussed Procee d with neurosurgery evaluation Hydrocodone 7.5/325mg 1 po q 4hrs prn pain--#100 10/07/2014 Appointment: Tiara Morales WPtel: [address] [place], [place] [phone] [place] FOLLOW UP 10/07/2014 Patient Education: Patient Medication Summary Completed 10/07/2014 Referral: Bart Nava WPtel: [facility] [address] [place] [id number] Referral Initiated 10/06/2014 Appointment: Elizabeth Mccarthy WPtel: [address] [place], [place] [phone] ACUTE ILLNESS 10/01/2014 Patient Education: Patient Medication Summary Completed 10/01/2014 Visit Plan: PT for neck and thoracic Add Zorvolex 18mg po TID Continue flexeril 10mg q HS 09/22/2014 Appointment: Tiara Morales WPtel: [address] [place], [place] [phone] FOLLOW UP 09/22/2014 Patient Education: Patient Medication Summary Completed 09/22/2014 Appointment: Tiara Morales WPtel: [address] [place], [place] [phone] ACUTE ILLNESS 09/16/2014 Appointment: Elizabeth Mccarthy WPtel: [address] [place], [place] [phone] [place] WORK IN 09/16/2014 Patient Education: Patient Medication Summary Completed 09/16/2014 Appointment: Elizabeth Mccarthy WPtel: [address] [place], [place] [phone] ACUTE ILLNESS 06/12/2014 Patient Education: Patient Medication Summary Completed 06/12/2014 Appointment: Tiara Morales WPtel: [address] [place] [address] INJECTION 03/18/2014 Patient Education: Patient Medication Summary Completed 03/18/2014 Appointment: Alannah Fink WPtel: [address] [place] [address] ACUTE ILLNESS 03/13/2014 Patient Education: Patient Medication Summary Completed 03/13/2014 Appointment: Tiara Morales WPtel: [address] [place] [address] FOLLOW UP 03/05/2014 Appointment: Tiara Morales WPtel: [address] [place], [place] [phone] 02/18 ACUTE ILLNESS 02/19/2014 Patient Education: Patient Medication Summary Completed 02/19/2014 Visit Plan: Add topamax Use excedrin sam colleen prn Start B12 sublingual 2500mcg daily 09/25/2013 Appointment: Tiara Morales WPtel: [address] [place] [address] ACUTE ILLNESS 09/25/2013 Patient Education: Patient Medication Summary Completed 09/25/2013 Appointment: Elizabeth Mccarthy WPtel: [address] [place], [place] [phone] ACUTE ILLNESS 08/08/2013 Patient Education: Patient Medication Summary Completed 08/08/2013 Visit Plan: Reports rash was present on knees. Has photo of redness/ irregular shaped rash on bilateral knees that appears to have since cleared. Reports that has been red and only mildly itchy for the last two weeks. Reports that had some finger numbness. Recent blood work reportedly performed at [facility] to evaluate for MS, mineral deficiency, etc in the spring for parasthesia. Will consider nerve conduction study if symptoms persist. 12/26/2012 Appointment: Reta Vines WPtel: [address] [place], [place] [phone] ACUTE ILLNESS 12/26/2012 Patient Education: Patient Medication Summary Completed 12/26/2012 Appointment: Tiara Morales WPtel: [address] [place], [place] [phone] 11/27 left message ACUTE ILLNESS 11/28/2012 Patient [...] for symptoms/fever. 05/21/2012 Appointment: Reta [place] WPtel: [address] [place], [place] [phone] ACUTE ILLNESS 05/21/2012 Patient Education: Patient Medication Summary Completed 05/21/2012 Appointment: Tiara Morales WPtel: [address] [place], [place] [phone] 04/11 message with patient That needs to rescedule patient physical appt on 04/16 patient was walking dog she will call to reschedule appt PHYSICAL 04/16/2012 Appointment: Reta [place] WPtel: [address] [place], [place] [phone] ACUTE ILLNESS 09/13/2011 Patient Education: Patient Medication [...] are normal. 11/29/2010 Appointment: Reta Vines WPtel: [address] [place] [address] ACUTE ILLNESS 11/29/2010 Patient Education: Patient Medication Summary Completed 11/29/2010 Appointment: Reta [place] WPtel: [address] [place] [address] ACUTE ILLNESS 08/10/2009 Patient Education: Patient Medication Summary Completed 08/10/2009 Appointment: Tiara Morales WPtel: [address] [place] [address] ACUTE ILLNESS 08/09/2009 Referral: Jaquan Simon WPtel: [address] [place] [address] [id number] [place] Referral Initiated Referral: Chuck Fermin WPtel: [address] [place] [address] [address] [place] [address] [place] Referral Completed Referral: Katie Elliott WPtel: [facility] [address] [id number] [place] Referral Completed Instructions Comment . Needs [...] and leg i n May 2015 at [facility] and was negative Has not seen neurologist since 2nd neck surgery Add low dose lyrica at bedtime 50mg q HS . Proceed with MRI of cervical/thoracic w/wo contrast. Has plans to follow-up with her surgeon in [place], [place] . Increase cymbalta to 60mg daily [...] HS Start PT . Patient going to [facility] this week end and go to walk-in clinic and try to get seen Suggested rheumatology and neurology as main foci and evaluations Using flexeril prn . Proceed with evaluation at [facility] for co mplete workup due to 2 [...] numbness. Recent blood work reportedly performed at [facility] to evaluate for MS, mineral deficiency, etc [...]
[2019-08-20] MEDS ORDERED: MIDAZOLAM 2 MG/2 ML (VERSED) VIAL ONE (12:36)
[2019-08-20] MEDS ORDERED: fentaNYL INJECTION 100 MCG/2 ML AMP ONE (12:36)
[2019-08-20] MEDS ORDERED: HYDR-4227 PO (12:37)
== END 2019-08-18 20:45 | disposition home or self-care (01) ==
LOC: EDUNIT# 17:27 → ER 17:30
DX: R10.11 Right upper quadrant pain (principal); F41.9 Anxiety disorder, unspecified; F32.9 Major depressive disorder, single episode, unspecified; Z90.49 Acquired absence of other specified parts of digestive tract; Z88.1 Allergy status to other antibiotic agents; Z88.5 Allergy status to narcotic agent; Z88.2 Allergy status to sulfonamides; Z88.8 Allergy status to other drugs, medicaments and biological substances
CPT/HCPCS: 36415; 71260; 74177; 80053; 80306; 80320; 81000; 82150; 83690; 84703; 85007; 85027

== ENCOUNTER → 2019-08-18 | Outpatient (CLI) | payer OTHER ==
[~2019-08-18] MED LIST changes: +DICY20TA10 PO; +HYDR-4227 PO; +HYOS0.1283 SL; +ONDA8TAB13 PO
--- NOTE | 2019-08-18 17:15 | Diagnostic Imaging Report ---
PROCEDURE: US Gallbladder. TECHNIQUE: Multiple real-time grayscale images were obtained over the right upper quadrant in various projections. INDICATION: Right upper quadrant pain. FINDINGS: Liver parenchyma is normal. No intra or extrahepatic bile duct dilatation. The gallbladder appears normal. There is no stone or sludge. The unobstructed right kidney is normal in size, cortical thickness, and echotexture. The visualized portions of the aorta, IVC, and pancreas are unremarkable. No ascites. IMPRESSION: Normal right upper quadrant ultrasound. Dictated by: Dictated on workstation # [id number]
== END ==
LOC: RAD 16:00
PROVIDERS: ATTEND Nurse Practitioner Family
DX: R10.11 Right upper quadrant pain (principal); K90.0 Celiac disease; R07.1 Chest pain on breathing; R05 Cough; R68.81 Early satiety; N80.0 Endometriosis of uterus; K21.9 Gastro-esophageal reflux disease without esophagitis; J11.00 Influenza due to unidentified influenza virus with unspecified type of pneumonia; M50.30 Other cervical disc degeneration, unspecified cervical region; R53.81 Other malaise
CPT/HCPCS: 76705

== ENCOUNTER 2020-04-22 08:04 | Outpatient (RCR) | payer OTHER ==
[~2020-04-22 08:04] MED LIST changes: +DICY20TA10 PO; +HYDR-4227 PO; +HYOS0.1283 SL; +ONDA8TAB13 PO
== END 2020-07-21 | disposition home or self-care (01) ==
LOC: CARD 08:04
PROVIDERS: ATTEND Internal Medicine
DX: R00.0 Tachycardia, unspecified (principal)
CPT/HCPCS: 93005; 93225; 93226

== ENCOUNTER 2021-01-14 01:44 | Outpatient (CLI) | payer OTHER ==
[~2021-01-14] VITALS: Ht 177.8 cm; Wt 103.3 kg
[2021-01-14] MEDS ORDERED: PNV1TABL9 PO (02:09)
[2021-01-14 02:11] VITALS: BP 140/90
--- NOTE | 2021-01-17 08:00 | Physician Query-Final Dx ---
Clinic Account Progress/Dx Physician Query: Please give diagnosis Please include # weeks gestation Date of Service Jan 14, 2021 at 01:44 DELVIS DUMONT Jan 17, 2021 08:00
== END 2021-01-14 02:25 | disposition home or self-care (01) ==
LOC: WSo 01:44 → LDRP 01:46 → WSo 02:25
PROVIDERS: ATTEND Family Medicine
DX: O26.899 Other specified pregnancy related conditions, unspecified trimester (principal); R06.02 Shortness of breath; Z3A.00 Weeks of gestation of pregnancy not specified
CPT/HCPCS: 99212

== ENCOUNTER 2021-05-20 10:58 | Emergency (ER) | payer OTHER ==
[~2021-05-20] VITALS: Ht 177.8 cm; Wt 90.7 kg
[~2021-05-20 10:58] MED LIST changes: +DICY20TA PO; -DICY20TA10 PO; +PNV1TABL9 PO
--- NOTE | 2021-05-20 11:13 | ED Back Pain ---
General Chief Complaint: Back Problems Stated Complaint: LOWER BACK PAIN Source of Information: Patient Exam Limitations: No Limitations (MARY SOMMERS APRN) History of Present Illness Date Seen by Provider: May 20, 2021 Time Seen by Provider: 11:11 Initial Comments To ER with severe midline low back pain that radiates down the right leg. No loss of bowel or bladder control no loss of sensation of genitals. She bent down to grape picker her child this morning and crumpled to the floor because of sudden onset of severe back pain. History of L4-L5 microdiscectomy and cervical spine fusion. She subsequently went to the chiropractor after this fall this morning and the pain became worse. She was referred to the emergency room. She has not yet taken anything for the pain but informs me that she has already had "the hydro level". Location: Lumbar Spine Timing/Duration: 4-6 Hours Severity: Moderate Pain/Injury Location: Back Radiation: Upper Legs Method of Injury: Fall Modifying Factors: Worse With Movement Associated Symptoms: lower back pain (MARY SOMMERS APRN) Allergies and Home Medications Allergies Coded Allergies: cefixime (Verified Allergy, Unknown, 07/16/07) codeine (Verified Allergy, Unknown, 03/14/18) gluten (Verified Allergy, Unknown, 12/16/14) sulfamethoxazole (Verified Allergy, Unknown, 07/16/07) trimethoprim (Verified Allergy, Unknown, 07/16/07) dexamethasone (Unverified Adverse Reaction, Unknown, HALLUCINATIONS, PANIC ATTACKS. , 12/16/14) Patient Home Medication List Home Medication List Reviewed: Yes (MARY SOMMERS APRN) Hydrocodone/Acetaminophen (Hydrocodone-Acetamin 5-325 mg) 1 Each Tablet, 1 TAB PO Q4H PRN for PAIN-MODERATE (5-7) Prescribed by: MARY SOMMERS on 05/20/21 1212 Pnv Cmb#21/Iron/Folic Acid ( Complete Caplet) 1 Each Tablet, 1 EACH PO DAILY, (Reported) Entered as Reported by: ZBIGNIEW SHERIDAN on 01/14/21 0209 Review of Systems Constitutional: see HPI EENTM: see HPI Respiratory: no symptoms reported Cardiovascular: no symptoms reported Genitourinary: no symptoms reported Musculoskeletal: see HPI Skin: no symptoms reported Psychiatric/Neurological: No Symptoms Reported (MARY SOMMERS APRN) Past Pheifrg-Fpeaub-Nxgkxq Hx Seasonal Allergies Seasonal Allergies: Yes (MARY SOMMERS APRN) Past Medical History Surgeries: Yes (CERVICAL SPINE FUSION C5-6; HYSTEROSCOPY; EGD 03/2018;CO LONOSCOPY 08/2018) Adenoidectomy, Appendectomy, Neurological, Tonsillectomy Respiratory: No Cardiac: No Neurological: No Reproductive Disorders: Yes Female Reproductive Disorders: Ovarian Cyst Genitourinary: No Gastrointestinal: Yes (CELIAC DISEASE, "GLUTEN ALLERGY" ) Musculoskeletal: Yes (BACK AND NECK PAIN-C5-6 FUSION) Chronic Back Pain Endocrine: No HEENT: Yes (S/P T&A) Tonsilitis Cancer: No Psychosocial: Yes Anxiety, Depression Integumentary: No Blood Disorders: No (MARY SOMMERS APRN) Family Medical History No Pertinent Family Hx (MARY SOMMERS APRN) Physical Exam Vital Signs Vital Signs - First Documented 05/20/21 11:03 Temp 36.8 Pulse 106 Resp 22 B/P (MAP) 110/66 (81) Pulse Ox 98 O2 Delivery Room Air (BELTRAN CEDILLO MD) Vital Signs Capillary Refill : (MARY SOMMERS APRN) Height, Weight, BMI Height: 5'10.00" Weight: 201lbs. 0.0oz. 91.859873ls; 32.67 BMI Method:Stated General Appearance: No Apparent Distress, WD/WN Neck: Full Range of Motion, Normal Inspection Respiratory: No Accessory Muscle Use, No Respiratory Distress Gastrointestinal: Normal Bowel Sounds, Non Tender, Soft Extremity: Normal Capillary Refill, Normal Inspection Neurologic/Psychiatric: Alert, Oriented x3 Skin: Normal Color, Warm/Dry (MARY SOMMERS APRN) Progress/Results/Core Measures Results/Orders Vital Signs/I&O 05/20/21 05/20/21 11:03 12:20 Temp 36.8 Pulse 106 86 Resp 22 20 B/P (MAP) 110/66 (81) 115/74 Pulse Ox 98 96 O2 Delivery Room Air Room Air (BELTRAN CEDILLO MD) Departure Communication (Admissions) NAME: [facility]ITO [facility] REC#: [id number] PT STATUS: REG ER : 1990 PHYSICIAN: MARY SOMMERS APRN ADMIT DATE: 05/20/21/ER Draft Date of Exam:05/20/21 MRI LUMBAR SPINE W/O CONTRAST PROCEDURE: MRI lumbar spine without contrast. TECHNIQUE: Multiplanar, multisequence MRI of the lumbar spine was performed without contrast. INDICATION: Low back pain. Lifting injury. COMPARISON: 08/18/2019. FINDINGS: 5 lumbar type vertebral bodies are visualized with the last well-formed disc space designated L5-S1. No acute fracture or dislocation is seen in the lumbar spine. Alignment is anatomic. Vertebral body heights are well-maintained. The bone marrow signal is normal. The conus terminates at the L1 level. No masses are seen associated with the conus or nerve roots of the cauda equina. No epidural collections are identified. Multilevel degenerative changes are seen in the lumbar spine with disc bulges, facet hypertrophy, and buckling of the ligamentum flavum. T12-L1: No significant spinal canal or foraminal stenosis. L1-L2: No significant spinal canal or foraminal stenosis. L2-L3: No significant spinal canal or foraminal stenosis. L3-L4: No significant spinal canal or foraminal stenosis. L4-L5: Broad-based disc bulge with central protrusion, facet hypertrophy, and buckling of the ligamentum flavum results in hifw-ko-fmitdlaq spinal canal stenosis and yubr-ia-tykelbco bilateral foraminal stenosis. L5-S1: Broad-based disc bulge with central protrusion and annular fissure, facet hypertrophy, and buckling of the ligamentum flavum results in eyxu-al-ewlfqars spinal canal narrowing and twsz-wv-siorsjkt bilateral foraminal narrowing. Paravertebral soft tissues are unremarkable. IMPRESSION: 1. No acute fracture or dislocation in the lumbar spine. 2. Multilevel degenerative changes in the lumbar spine, greatest at L4-L5 and L5-S1. Dictated on workstation # [id number] Dict: 05/20/21 1151 Trans: 05/20/21 1204 [id number] [id number] Interpreted by: JANIE WORRELL DO Electronically signed by: (MARY SOMMERS APRN) Impression Primary Impression: Lumbar disc herniation with radiculopathy Disposition: 01 HOME, SELF-CARE Condition: Stable Departure-Patient Inst. Decision time for Depature: 12:11 (MARY SOMMERS APRN) Referrals: ALYSON HUI DO (PCP/Family) Primary Care Physician Patient Instructions: Radiculopathy (DC) Scripts Hydrocodone/Acetaminophen (Hydrocodone-Acetamin 5-325 mg) 1 Each Tablet 1 TAB PO Q4H PRN for PAIN-MODERATE (5-7), #14 TAB Prov: MARY SOMMERS APRN 05/20/21 ATTENDING PHYSICIAN NOTE: I was physically present as attending physician in the emergency department during the care of this patient, but I was not directly involved in the decision making or delivery of care for this patient. (BELTRAN CEDILLO MD) Copy Copies To 1: ALYSON HUI PETER J APRN May 20, 2021 11:13 BELTRAN CEDILLO MD May 23, 2021 06:54
--- NOTE | 2021-05-20 12:05 | Diagnostic Imaging Report ---
PROCEDURE: MRI lumbar spine without contrast. TECHNIQUE: Multiplanar, multisequence MRI of the lumbar spine was performed without contrast. INDICATION: Low back pain. Lifting injury. COMPARISON: 08/18/2019. FINDINGS: 5 lumbar type vertebral bodies are visualized with the last well-formed disc space designated L5-S1. No acute fracture or dislocation is seen in the lumbar spine. Alignment is anatomic. Vertebral body heights are well-maintained. The bone marrow signal is normal. The conus terminates at the L1 level. No masses are seen associated with the conus or nerve roots of the cauda equina. No epidural collections are identified. Multilevel degenerative changes are seen in the lumbar spine with disc bulges, facet hypertrophy, and buckling of the ligamentum flavum. T12-L1: No significant spinal canal or foraminal stenosis. L1-L2: No significant spinal canal or foraminal stenosis. L2-L3: No significant spinal canal or foraminal stenosis. L3-L4: No significant spinal canal or foraminal stenosis. L4-L5: Broad-based disc bulge with central protrusion, facet hypertrophy, and buckling of the ligamentum flavum results in raiw-lf-loiigmtm spinal canal stenosis and didb-ke-jsqlnoty bilateral foraminal stenosis. L5-S1: Broad-based disc bulge with central protrusion and annular fissure, facet hypertrophy, and buckling of the ligamentum flavum results in qzxz-dl-vojyepzo spinal canal narrowing and nwko-rc-koirpdhe bilateral foraminal narrowing. Paravertebral soft tissues are unremarkable. IMPRESSION: 1. No acute fracture or dislocation in the lumbar spine. 2. Multilevel degenerative changes in the lumbar spine, greatest at L4-L5 and L5-S1. Dictated by: Dictated on workstation # [id number]
[2021-05-20] MEDS ORDERED: ACHD5005 PO (12:12)
[2021-05-20 12:20] VITALS: BP 115/74
== END 2021-05-20 12:20 | disposition home or self-care (01) ==
LOC: EDUNIT# 10:58 → ER 10:59
DX: M51.16 Intervertebral disc disorders with radiculopathy, lumbar region (principal)
CPT/HCPCS: 72148

== ENCOUNTER 2022-05-24 00:44 | Outpatient (CLI) | payer OTHER ==
[~2022-05-24] VITALS: Ht 175.3 cm; Wt 93.4 kg
[~2022-05-24 00:44] MED LIST changes: +ACHD5005 PO
[2022-05-24 01:00] VITALS: BP 129/72
[2022-05-24] MEDS ORDERED: ASPI-999 PO (01:01)
[2022-05-24 01:28] LABS: BILIRUBIN,URINE NEGATIVE (NEGATIVE); CLARITY,URINE CLEAR; COLOR,URINE YELLOW; GLUCOSE, URINE (UA) NEGATIVE (NEGATIVE); KETONES,URINE NEGATIVE (NEGATIVE); LEUKOCYTE ESTERASE ,URINE NEGATIVE (NEGATIVE); NITRITE,URINE NEGATIVE (NEGATIVE); PROTEIN,URINE NEGATIVE (NEGATIVE)
[2022-05-24 01:44] LABS: BACTERIA,URINE MODERATE /HPF; SQUAMOUS EPITHELIAL CELL,UR 25-50 /HPF; WBC,URINE 0-2 /HPF
[2022-05-24 01:50] VITALS: BP 113/59
== END 2022-05-24 02:05 | disposition home or self-care (01) ==
LOC: WSo 00:44 → LDRP 00:46 → WSo 02:05
PROVIDERS: ATTEND Family Medicine
DX: O34.60 Maternal care for abnormality of vagina, unspecified trimester (principal); Z3A.00 Weeks of gestation of pregnancy not specified
CPT/HCPCS: 81000; G0463; 99213